=== PATIENT | male | born 1940 | race American Indian/Alaskan Native ===

== ENCOUNTER 2016-08-04 08:48 | Day surgery (SDC) | payer MEDICARE, OTHER ==
[~2016-08-04 08:48] MED LIST: TETRACAINE 0.5% OS SCH
[2016-08-04] MEDS ORDERED: XYLOCAINE MPF 2% INFILTRATI ONE (10:00)
[2016-08-04] MEDS: MYDRIACYL OS SCH ×3 (10:02→10:13)
[2016-08-04] MEDS: VIGAMOX OS SCH ×3 (10:02→10:14)
[2016-08-04] MEDS: AK-Dilate OS SCH ×3 (10:03→10:13)
[2016-08-04] MEDS ORDERED: SUBLIMAZE ONE (10:05)
[2016-08-04] MEDS ORDERED: VERSED ONE (10:06)
--- NOTE | 2016-08-04 10:23 | Anesthesia Consultation ---
Anesthesia Consult and Med Hx Date of service: 08/04/16 - Airway Anesthetic Teeth Evaluation: Good, Chipped (top front) ROM Head & Neck: Adequate Mental/Hyoid Distance: Adequate Mallampati Class: Class II Intubation Access Assessment: Probably Good - Pulmonary Exam CTA: Yes - Cardiac Exam Cardiac Exam: RRR - Pre-Operative Health Status ASA Pre-Surgery Classification: ASA3 Proposed Anesthetic Plan: MAC - Pulmonary Hx Smoking: Yes (Former) Hx Asthma: No - Cardiovascular System Hx Hypertension: Yes Hx Coronary Artery Disease: Yes Hx Heart Attack/AMI: No Hx Angina: No Hx Percutaneous Transluminal Coronary Angioplasty (PTCA): Yes (stent x 2011) Hx Cardia Arrhythmia: Yes (h/o A flutter) Hx Pacemaker: No Hx Internal Defibrillator: No 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
--- NOTE | 2016-08-04 10:23 | Anesthesia Day of Surgery ---
Anesthesia Day of Surgery - Day of Surgery Patient Examined: Yes Patient H&P Reviewed: Yes Patient is NPO: Yes
[2016-08-04] MEDS ORDERED: KENALOG-40 ONE (10:52)
[2016-08-04] MEDS ORDERED: XYLOCAINE 1% 20 mL ONE (10:53)
[2016-08-04] MEDS ORDERED: DECADRON ONE (10:57)
[2016-08-04] MEDS ORDERED: KENALOG-40 IM ONE (11:06)
--- NOTE | 2016-08-04 11:37 | Post Anesthesia Evaluation ---
- Post Anesthesia Evaluation Patient Participated: Yes Airway Patent: Yes Stable Respiratory Function: Yes Nausea/Vomiting: No Temp > 96.8F: Yes Pain Manageable: Yes Adequeate Hydration: Yes Anesthesia Complications: No Block Receding Appropriately: Not Applicable Patient on Ventilator: No
--- NOTE | 2016-08-04 11:45 | Short Stay Summary ---
Short Stay Documentation Date of service: 08/04/16 - History H&P: obtained from office - Allergies and Medications Current Medications: Allergies No Known Allergies Allergy (Verified 08/03/16 18:14) Home Medications Medication Instructions Recorded Confirmed Last Taken Type Aspirin BABY CHEW TAB 81 mg PO DAILY 05/13/15 08/04/16 08/03/16 20:00 History AtorvaSTATin [Lipitor] 80 mg PO DAILY 05/13/15 08/04/16 08/03/16 20:00 History E AC/Cu/Se/Znox/Pyg Afri/Saw P 1 tab PO DAILY 05/13/15 08/04/16 08/03/16 09:00 History [Prostamen Softgel] Bicalutamide [Bicalutamide] 50 mg PO DAILY 08/03/16 08/04/16 08/03/16 20:00 History Leuprolide Acetate [Eligard] 45 mg SQ [id number] 08/03/16 08/03/16 Unknown History Levofloxacin [Levaquin TAB] 500 mg PO QDAY 08/03/16 08/04/16 08/03/16 09:00 History Valsartan [Valsartan] 320 mg PO DAILY 08/03/16 08/04/16 08/03/16 20:00 History Active Medications Moxifloxacin HCl (Vigamox) 1 drops OS Q5MIN [facility] Stop: 08/06/16 07:01 Last Admin: 08/04/16 10:14 Dose: 1 drops Phenylephrine HCl (Ak-Dilate) 1 drops OS Q5MIN [facility] Stop: 08/04/16 23:59 Last Admin: 08/04/16 10:13 Dose: 1 drops Prednisolone Acetate (Pred Forte 1%) 1 drops OS QID [facility] Tetracaine HCl (Tetracaine 0.5%) 1 drops OS ONCE [facility] Stop: 08/04/16 23:59 Last Admin: 08/04/16 10:02 Dose: 1 drops Tropicamide (Mydriacyl) 1 drops OS Q5MIN [facility] Stop: 08/04/16 23:59 Last Admin: 08/04/16 10:13 Dose: 1 drops - Brief post op/procedure progress note Date of procedure: 08/04/16 Pre-op diagnosis: cataract and posterior synechaie Post-op diagnosis: same Procedure: Phacoemulsification with intraocular lens insertion and synechiolysis left eye Anesthesia: MAC Surgeon: JANN JACOBSON Estimated blood loss: none Pathology: none - Disposition Condition at discharge: Good Disposition: DC-01 TO HOME OR SELFCARE - Discharge Diagnoses (1) Cataract Status: Acute Qualifiers: Cataract type: secondary Age-related cataract type: A Infantile/juvenile cataract type: I Traumatic cataract type: T Complicated cataract type: C Secondary cataract type: other secondary cataract Laterality: left Qualified Code(s): H26.492 - Other secondary cataract, left eye (2) Synechia, posterior Status: Resolved Qualifiers: Laterality: left Qualified Code(s): H21.542 - Posterior synechiae (iris), left eye (3) Synechiae of iris Status: Resolved Qualifiers: Laterality: left Qualified Code(s): H21.502 - Unspecified adhesions of iris , left eye Short Stay Discharge Plan Follow up with: VENANCIO MCKINNON MD [Primary Care Provider] - 7 Days
--- NOTE | 2016-08-04 11:48 | Operative Report ---
Operative Report Operative Report: PATIENT'S NAME: DATE OF : DATE OF SURGERY: 08/04/2016 PREOPERATIVE DIAGNOSIS: Cataract and posterior synechiae left eye POSTOPERATIVE DIAGNOSIS: Same OPERATIVE PROCEDURE: Phacoemulsification with intraocular lens implantation, synechiolysis left eye SURGEON: Saige Ruiz M.D. GATHERING WORKER SURGEON: None Lens: ao60 19.0 D ANESTHESIA: Monitored anesthesia care in combination with topical and intracameral anesthesia because of the established specific risk of reflux, arrhythmias, or anxiety attacks associated with ocular manipulation, as well as the difficulty of the billing customer service representative to manage such potentially catastrophic events while simultaneously attempting to complete the surgical procedure and was deemed necessary for the patient's safety to have an Rivet Thrower present during the procedure whenever possible. An Rivet Thrower was utilized to regulate the intravenous sedation of the patient so the patient was cooperative yet not asleep in order for the patient to successfully maintain fixation of the eye on the operating light of the microscope. COMPLICATIONS: [No surgical complications] No blood loss. ALLERGIES: [No known drug allergies] PROGNOSIS: Excellent INDICATIONS FOR SURGERY: The patient is undergoing surgery in the hopes of eliminating or improving these visual difficulties. PROCEDURE: After arriving at the surgery center, the patient was given topical anesthetic and dilating drops, as noted in the record. The patient was then taken into the operating room and given more anesthetic drops. The eyelids , lashes, and lid margins were scrubbed with Betadine solution, and the patient was draped. The Nurse Rivet Thrower administered IV sedation and monitored the patient during the procedure. The eye was then fixated with a 0.12, and a stab incision was made in the peripheral clear cornea into the anterior chamber. This was made on my left side. Viscoelastic was next used to fill the anterior chamber. The eye was once again fixated with the 0.12 forceps and a keratome was used make an incision in clear cornea peripherally on my right hand side temporally. the posterior synechaie were broken. a malugyan ring inserted The capsule forceps were used to open the central anterior capsule and then make a continuous round capsulotomy. Hydrodissection was carried out utilizing a cannula and balanced salt solution to delineate the cortical material from the capsule and the nucleus from the cortical material. The phaco tip was introduced into the eye and used to remove the anterior cortical material in the area of the capsulotomy. Then the phaco tip was buried into the nucleus, and a chopping instrument was introduced into the eye and used to provide countertraction in the nucleus between this instrument and the phaco tip fracturing the nucleus. This procedure was repeated multiple times, providing multiple small segments of the lens, and then the phaco tip was used to remove each of these segments. An I/A tip was then used to remove the remaining cortex. The anterior chamber was refilled with viscoelastic. An one-piece, acrylic intraocular lens was then placed into an inserting cartridge. The tip of the inserting cartridge was introduced into the keratome incision and into the anterior chamber. The implant was gently advanced through the cartridge and into the eye, where it unfolded, and both haptics were placed in the capsular bag, where it centered nicely and appeared to be well fixated. After placement of the intraocular lens, the malugyan ring was removed the I~and ~A handpiece was placed back into the eye and used to remove the viscoelastic, including viscoelastic that was behind the optic of the intraocular lens. The anterior chamber was then filled with balanced salt solution, and hydration of the wound was used to cause swelling of the wound and more appropriate watertight closure. kenolog injected When the wound was found to be firm, the patient was asked to comment on how bright the light was. If there was no light perception at all or if the light was substantially dimmer than during the rest of the surgery, the amount of fluid in the eye was decompressed to lower the intraocular pressure until the patient could see the bright light again. This was done to avoid any damage or decreased blood flow to the optic nerve. MEDICATIONS APPLIED AT END OF SURGERY: One drop of Pred Forte and Vigamox kenolog injected subconj The patient was given a shield to wear at night and was instructed not to rub or push on the eye. DISCHARGE SUMMARY: The patient was released in stable condition. The patient and those with the patient were given a written sheet of postoperative instructions and counseling on any abnormal laboratory studies. The patient is to see us tomorrow for follow-up in the office and is to call immediately for any difficulties. Saige Ruiz M.D. Date
[2016-08-04] MEDS ORDERED: PRED FORTE 1% OS SCH (14:00)
[2016-08-04 17:44] VITALS: BP 130/66
== END 2016-08-04 13:20 | disposition home or self-care (01) ==
LOC: OR 08:48
DX: H26.9 Unspecified cataract (principal); H21.542 Posterior synechiae (iris), left eye; I25.10 Atherosclerotic heart disease of native coronary artery without angina pectoris; I10 Essential (primary) hypertension; Z95.2 Presence of prosthetic heart valve; Z85.46 Personal history of malignant neoplasm of prostate; Z72.89 Other problems related to lifestyle; Z87.891 Personal history of nicotine dependence; Z95.5 Presence of coronary angioplasty implant and graft; Z79.899 Other long term (current) drug therapy
CPT/HCPCS: 66984; J1100; J2250; J3010; J3301; V2632

== ENCOUNTER 2016-08-17 10:27 | Day surgery (SDC) | payer MEDICARE, OTHER ==
--- NOTE | 2016-08-10 11:27 | Admit Criteria Form ---
Admission Criteria Documentation: AMBULATORY SURGERY EXCEPTION CRITERIA Ambulatory Surgery Exception Criteria ( Place 'X' for any and all applicable criteria): Surgery or procedure performed on ambulatory basis may require inpatient stay for[A] ANY ONE of the following(1)(2)(3)(4)(5)(6)(7)(8)(9): [X] I. A preoperative situation, condition, or finding that warrants inpatient stay as indicated by ANY ONE of the following: [] a) Inpatient care needed because of severity of a disease or condition rather than the surgery (eg, severe cardiac or respiratory disease, severe infection) (15) (16 ) (17) (18) [] b) Emergent procedure (eg, angioplasty for acute ischemia)(19) [] c) Complex surgical approach or situation as indicated by ANY ONE of the following(3): [] i) Open approach needed instead of usual endoscopic, transcatheter, or other less invasive procedure [] ii) Difficult approach because of previous operation [] iii) Airway monitoring required after open neck procedures(20)(21) [] iv) Large mass requiring unusually extensive dissection [] v) Additional complicating feature requiring inpatient care (eg, drain management)(22(23): [X] d) Major surgery in a pt with high anesthetic risk as indicated by ANY ONE of the following (2)(3)(5)(7)(8): [X] i) ASA risk class III or higher (severe systemic disease impairing function) [D] [] ii) Advanced age (eg, older than 85 years)(14)(24) [] iii) Symptomatic heart failure(25) [] iv) Symptomatic asthma or COPD(8)(21) [] v) Morbid obesity with hemodynamic or respiratory problems(20)( 21)(26)(27) [] vi) Obstructive sleep apnea(20)(21) [] vii) Former premature infants who are younger than 60 weeks [] viii) High risk for severe postoperative abnormalities (eg, severe postoperative hypocalcemia after parathyroidectomy for severe hyperparathyroidism)(27)( 28) [] ix) Unstable angina(25) [] e) Drug-related risk requiring inpatient stay as indicated by ANY ONE of the following(5)(10)(14)(32)(33) [] i) Procedure requires discontinuing drugs or other therapy (eg , antiarrhythmic medication, antiseizure medication), which necessitates inpatient observation or treatment.(18)(31) [] ii) Major surgery and high risk drug use as indicated by ANY ONE of the following: [] 1) Active abuse of cocaine or similar drug [] 2) Monoamine oxidase inhibitor use [] 3) Other drug identified as posing risk [] f) Inadequate outpatient care situation as indicated by ANY ONE of the following(5)(10)(14)(32)(33) [] i) Patient lives remote from medical facility and procedure has urgent complication potential, and temporary nearby residence cannot be arranged [] ii) Patient will have postprocedure incapacitation and inadequate assistance at home, or alternative level of care cannot be arranged. [] iii) Patient will have long general anesthesia or procedure side effect resolution time, and competent person to stay with patient on first postoperative night at home or alternative level of care cannot be arranged. []iv) Other inadequate outpatient situation that cannot be handled by other means [] II. A perioperative event, condition, or finding that warrants inpatient stay as indicated by ANY ONE of the following (1)(2)(3): [] a) Inadequate physiologic recovery: cardiovascular, respiratory, or hemodynamic status not normal or near preoperative baseline(18) [] b) Hemodynamic instability [] c) Patient not alert with near normal or baseline mental status [] d) Temperature not normal or as expected and not appropriate for outpatient treatment of condition [] e) Ambulatory or appropriate activity level status not yet achieved post procedure [E](34)(35)(36) [] f) Operative site not appropriate (eg, unexpected or excessive drainage or bleeding) [] g) Postoperative effects not resolved or adequately managed (eg, significant pain or vomiting not appropriate for outpatient or next level of care)(10)(12) [] h) Complicating features requiring inpatient care as indicated by ANY ONE of the following(37): [] i) Severe complications of procedure (eg, bowel injury, airway compromise, vascular injury,severe hemorrhage) [] ii) Extensive (eg, dissection far beyond usual scope of procedure ) or prolonged (eg, 120 minutes beyond usual) surgery needed requiring inpatient postoperative care [] iii) Conversion to an open or complex procedure that requires inpatient care (eg, open vs laparoscopic cholecystectomy, abdominal vs vaginal hysterectomy)(38) [] iv) Comorbid condition or test result identified during or post procedure that requires inpatient care (7) [] v) Malignant hyperthermia(30) [] vi) Other complicating feature requiring inpatient care(22)(23) Inpatient stay may be needed until ALL of the following are present (1)(2)(3)(4) (5)(6)(10)(14)(33)(40): []a) Physiologic recovery: cardiovascular, respiratory, and hemodynamic status normal or near preoperative baseline []b) Hemodynamic stability []c) Patient alert, with near normal or baseline mental status []d) Temperature appropriate: patient afebrile or temperature appropriate for outpt treatment of condition []e) Activity level appropriate: ambulatory or appropriate activity level post procedure []f) Operative site appropriate as indicated by ALL of the following: []i) Site dry or with expected drainage []ii) Any blood noted is as expected for procedure. []g) Postoperative effects resolved or managed as indicated by ALL of the following: []i) Pain management appropriate for outpatient (or next level of) care(10) []ii) Minimal nausea and vomiting: if present, successfully treated with oral medication(12) []iii) Headache, dizziness, or drowsiness (if present) are mild. []h) Voiding status acceptable as indicated by ANY ONE of the following: []i) Voiding spontaneously []ii) No voiding but instructions given for follow-up in 6 to 8 hours []iii) Urinary catheter in place, and instructions given for follow-up []i) Complicating features requiring inpatient care manageable at a lower level of care(37) []j) Comorbid conditions manageable at a lower level of care(37) The original [employer] content created by [employer] has been revised. The portions of the content which have been revised are identified through the use of italic text or in bold, and [employer] has neither reviewed nor approved the modified material. All other unmodified content is copyright [employer]. Please see references footnoted in the original [employer] edition 2016
--- NOTE | 2016-08-11 10:57 | Anesthesia Consultation ---
Anesthesia Consult and Med Hx Date of service: 08/11/16 - Airway Anesthetic Teeth Evaluation: Good ROM Head & Neck: Adequate Mental/Hyoid Distance: Adequate Mallampati Class: Class II Intubation Access Assessment: Probably Good - Pulmonary Exam CTA: Yes - Cardiac Exam Cardiac Exam: RRR - Pre-Operative Health Status ASA Pre-Surgery Classification: ASA3 - Pulmonary Hx Smoking: Yes (Former) Hx Sleep Apnea: No (SIGIFREDO PRE SCREEN HIGH RISK) - Cardiovascular System Hx Hypertension: Yes Hx Coronary Artery Disease: Yes Hx Heart Attack/AMI: No Hx Percutaneous Transluminal Coronary Angioplasty (PTCA): Yes (stent x 2011) Hx Cardia Arrhythmia: Yes (h/o A flutter) Hx Pacemaker: No Hx Valvular Heart Disease: Yes (aortic valve repalcement 2012) Hx Heart Murmur: Yes - Central Nervous System Hx Seizures: No CVA: No Hx Psychiatric Problems: No - Gastrointestinal Hx Ulcer: No Hx Gastroesophageal Reflux Disease: No - Endocrine Hx Renal Disease: No Hx Liver Disease: No Hx Non-Insulin Dependent Diabetes: No Hx Hypothyroidism: No - Hematic Hx Anemia: Yes - Other Systems Hx Alcohol Use: Yes (PACK OCCASIONAL) Hx Substance Use: No Hx Cancer: Yes (prostate)
[2016-08-11 11:00] LABS: Basophils % (Auto) 0.2 % (0.0-1.8); Eosinophils % (Auto) 1.4 % (0.0-4.3); Hematocrit 39.1 % (35.5-45.6); Mean Corpuscular HGB Conc 33 % (32-34); Mean Corpuscular Hemoglobin 31 pg (28-32); Mean Corpuscular Volume 94 fl (84-94); Platelet Count 134 K/mm3 (140-440); Red Blood Count 4.15 M/mm3 (3.65-5.03); Red Cell Distribution Width 15.4 % (13.2-15.2); White Blood Count 5.8 K/mm3 (4.5-11.0)
[2016-08-11 11:08] LABS: INR 0.95 (0.87-1.13)
[2016-08-11 11:09] LABS: Partial Thromboplastin Time 26.2 Sec. (24.2-36.6)
[2016-08-11 12:30] LABS: Alanine Aminotransferase 17 units/L (7-56); Albumin 3.7 g/dL (3.9-5); Albumin/Globulin Ratio 1.3 %; Alkaline Phosphatase 98 units/L (35-129); Anion Gap 18 mmol/L; Blood Urea Nitrogen 16 mg/dL (9-20); Calcium 8.2 mg/dL (8.4-10.2); Carbon Dioxide 20 mmol/L (22-30); Chloride 106.2 mmol/L (98-107); Glucose 99 mg/dL (75-100); Potassium 3.8 mmol/L (3.6-5.0); Sodium 140 mmol/L (137-145); Total Protein 6.6 g/dL (6.3-8.2)
[~2016-08-17 10:27] MED LIST changes: +NACL 0.9% 1000 ML 1,000 ML IV SCH; +PEPCID PO NR; -TETRACAINE 0.5% OS SCH
[2016-08-17] MEDS ORDERED: NACL BACTERIOSTATIC INFILTRATI ONE (11:15)
--- NOTE | 2016-08-17 12:21 | Post Operative Note ---
Date of procedure: 08/17/16 Pre-op diagnosis: AUR and stricture cap Post-op diagnosis: same Findings: as above Procedure: cysto dviu turp Anesthesia: GETA Surgeon: GLORY RENEE Estimated blood loss: minimal Pathology: list (chips) Specimen disposition: to lab Condition: stable Disposition: PACU
[2016-08-17] MEDS ORDERED: ANCEF/STERILE WATER 2 GM/20 ML 2 GM/20 ML SYRINGE IV NR (13:00)
[2016-08-17] MEDS ORDERED: OMNIPAQUE 300 MG/50 ML (CATH LAB) IV ONE (13:20)
[2016-08-17] MEDS ORDERED: SORBITOL-MANNITOL IRRIG IR ONE (13:20)
--- NOTE | 2016-08-17 13:44 | Discharge Summary ---
Short Stay Discharge Plan Activity: other (no straining ) Weight Bearing Status: Full Weight Bearing Diet: regular, low fat, low cholesterol Special Instructions: other (nguyen care ) Durable Medical Equipment Needed Upon Discharge: other (nguyen) Follow up with: VENANCIO MCKINNON MD [Primary Care Provider] - 7 Days GLORY RENEE MD [Staff Physician] - 08/31/16
--- NOTE | 2016-08-17 14:53 | Operative Report ---
PREOPERATIVE DIAGNOSES: Urinary retention, history of prostate cancer, which is now metastatic previous seed with recurrent scar tissue and incontinence. POSTOPERATIVE DIAGNOSES: Severe scar tissue, inability to place Parekh with intermittent catheterization by the patient. PROCEDURES: Cystoscopy, direct vision internal urethrotomy, transurethral resection of prostate tissue, which was severely scarred. SURGEON: Lake Garcia MD ANESTHESIA: General. FINDINGS: The patient is a gentleman with recurrent scar tissue post seed implantation. He is totally incontinent, once this opens and then gradually obtain some continence from the scars up. At this point, we could not get a catheter . It has been intermittently retention. He now presents for transurethral excision of prostatic scar tissue. DESCRIPTION OF PROCEDURE: The patient brought to the operating room and placed on the operating table. Following induction of anesthesia, placed in lithotomy position, prepped and draped in usual sterile fashion. The scar tissue was so dense, we initially placed a wire coiled in the bladder with an open-ended catheter. We incised it. It was so hard to even breakthrough. We had to incise it with the cold knife in multiple spots. Once we broke through we were able to resect it with a 24 resectoscope using the visual obturator. The patient tolerated the procedure well with no significant bleeding. A 22 cath was placed with a wire. The bladder was thickened. The prostatic urethra was wide open. I did not see any seeds at this time except on x-ray. The patient tolerated the procedure well and brought to recovery in stable condition. JOB# [id number] MUMTAZ/LAURA
[2016-08-17 16:03] VITALS: BP 149/95
--- NOTE | 2016-08-18 09:58 | Fluoroscopy Report ---
CYSTOGRAM STATIC, ONE VIEW History: Prostate cancer, urinary incontinence. Findings: Fluoroscopy was provided by radiology during cystogram by urology. 4 fluoroscopic images were captured. Skiver Operator film of the abdomen is unremarkable. Multiple radiotherapy beads are noted in the prostate bed. Subsequent images demonstrate administration of water-soluble contrast through a Parekh catheter. There is mild trabeculation of the bladder wall but no obvious mass or filling defect. Please correlate with the procedural report by Dr. Garcia. Impression: Mild trabeculation of the bladder wall. No filling defect or extravasation identified.
== END 2016-08-17 15:49 | disposition home or self-care (01) ==
LOC: OR 10:27
PROVIDERS: ATTEND Urology
DX: L90.5 Scar conditions and fibrosis of skin (principal); N39.498 Other specified urinary incontinence; N32.89 Other specified disorders of bladder; I10 Essential (primary) hypertension; I25.10 Atherosclerotic heart disease of native coronary artery without angina pectoris; D64.9 Anemia, unspecified; Z95.5 Presence of coronary angioplasty implant and graft; Z95.2 Presence of prosthetic heart valve; Z72.89 Other problems related to lifestyle; Z85.46 Personal history of malignant neoplasm of prostate; Z87.891 Personal history of nicotine dependence
CPT/HCPCS: 36415; 51600; 52601; 74430; 80053; 85025; 85610; 85730; 86850; 86900; 86901; 88305; C1758; C1769; J0690; J7030; Q9967

== ENCOUNTER 2016-08-18 06:02 | Day surgery (SDC) | payer MEDICARE, OTHER ==
[~2016-08-18 06:02] MED LIST changes: +DECADRON ONE; +DIPRIVAN 10 MG/ML IV ONE; +LASIX ONE; -NACL 0.9% 1000 ML 1,000 ML IV SCH; -PEPCID PO NR; +SUBLIMAZE ONE; +XYLOCAINE MPF 2% ONE; +ZOFRAN ONE; +ePHEDrine SULFATE ONE
[2016-08-18] MEDS ORDERED: TETRACAINE 0.5% OD PRN ×2 (06:21→14:02)
[2016-08-18] MEDS: AK-Dilate OD SCH ×3 (06:35→06:45)
[2016-08-18] MEDS: MYDRIACYL OD SCH ×3 (06:35→06:45)
[2016-08-18] MEDS: VIGAMOX OD SCH ×3 (06:35→06:45)
--- NOTE | 2016-08-18 06:58 | Anesthesia Consultation ---
Anesthesia Consult and Med Hx Date of service: 08/18/16 - Airway Anesthetic Teeth Evaluation: Good ROM Head & Neck: Adequate Mental/Hyoid Distance: Adequate Mallampati Class: Class II Intubation Access Assessment: Probably Good - Pulmonary Exam CTA: Yes - Cardiac Exam Cardiac Exam: RRR Anesthetic Concerns: 2/6 systolic murmur - Pre-Operative Health Status ASA Pre-Surgery Classification: ASA3 Proposed Anesthetic Plan: MAC - Pulmonary Hx Smoking: Yes (Former) Hx Sleep Apnea: No (SIGIFREDO PRE SCREEN HIGH RISK) - Cardiovascular System Hx Hypertension: Yes Hx Coronary Artery Disease: Yes Hx Heart Attack/AMI: No Hx Percutaneous Transluminal Coronary Angioplasty (PTCA): Yes (stent x 2011) Hx Cardia Arrhythmia: Yes (h/o A flutter) Hx Pacemaker: No Hx Valvular Heart Disease: Yes (aortic valve repalcement 2012) Hx Heart Murmur: Yes - Central Nervous System Hx Seizures: No CVA: No Hx Psychiatric Problems: No - Gastrointestinal Hx Ulcer: No Hx Gastroesophageal Reflux Disease: No - Endocrine Hx Renal Disease: No Hx Liver Disease: No Hx Non-Insulin Dependent Diabetes: No Hx Hypothyroidism: No - Hematic Hx Anemia: Yes - Other Systems Hx Alcohol Use: Yes (PACK OCCASIONAL) Hx Substance Use: No Hx Cancer: Yes (prostate)
--- NOTE | 2016-08-18 06:58 | Anesthesia Day of Surgery ---
Anesthesia Day of Surgery - Day of Surgery Patient Examined: Yes Patient H&P Reviewed: Yes Patient is NPO: Yes Cardiac Clearance: Yes
[2016-08-18] MEDS ORDERED: AK-Dilate OD SCH ×3 (07:00→15:00)
[2016-08-18] MEDS ORDERED: VERSED ONE (07:10)
[2016-08-18] MEDS ORDERED: SUBLIMAZE ONE (07:11)
--- NOTE | 2016-08-18 07:31 | Admit Criteria Form ---
Admission Criteria Documentation: AMBULATORY SURGERY EXCEPTION CRITERIA Ambulatory Surgery Exception Criteria ( Place 'X' for any and all applicable criteria): Surgery or procedure performed on ambulatory basis may require inpatient stay for[A] ANY ONE of the following(1)(2)(3)(4)(5)(6)(7)(8)(9): [X] I. A preoperative situation, condition, or finding that warrants inpatient stay as indicated by ANY ONE of the following: [] a) Inpatient care needed because of severity of a disease or condition rather than the surgery (eg, severe cardiac or respiratory disease, severe infection) (15) (16 ) (17) (18) [] b) Emergent procedure (eg, angioplasty for acute ischemia)(19) [] c) Complex surgical approach or situation as indicated by ANY ONE of the following(3): [] i) Open approach needed instead of usual endoscopic, transcatheter, or other less invasive procedure [] ii) Difficult approach because of previous operation [] iii) Airway monitoring required after open neck procedures(20)(21) [] iv) Large mass requiring unusually extensive dissection [] v) Additional complicating feature requiring inpatient care (eg, drain management)(22(23): [X] d) Major surgery in a pt with high anesthetic risk as indicated by ANY ONE of the following (2)(3)(5)(7)(8): [X] i) ASA risk class III or higher (severe systemic disease impairing function) [D] [] ii) Advanced age (eg, older than 85 years)(14)(24) [] iii) Symptomatic heart failure(25) [] iv) Symptomatic asthma or COPD(8)(21) [] v) Morbid obesity with hemodynamic or respiratory problems(20)( 21)(26)(27) [] vi) Obstructive sleep apnea(20)(21) [] vii) Former premature infants who are younger than 60 weeks [] viii) High risk for severe postoperative abnormalities (eg, severe postoperative hypocalcemia after parathyroidectomy for severe hyperparathyroidism)(27)( 28) [] ix) Unstable angina(25) [] e) Drug-related risk requiring inpatient stay as indicated by ANY ONE of the following(5)(10)(14)(32)(33) [] i) Procedure requires discontinuing drugs or other therapy (eg , antiarrhythmic medication, antiseizure medication), which necessitates inpatient observation or treatment.(18)(31) [] ii) Major surgery and high risk drug use as indicated by ANY ONE of the following: [] 1) Active abuse of cocaine or similar drug [] 2) Monoamine oxidase inhibitor use [] 3) Other drug identified as posing risk [] f) Inadequate outpatient care situation as indicated by ANY ONE of the following(5)(10)(14)(32)(33) [] i) Patient lives remote from medical facility and procedure has urgent complication potential, and temporary nearby residence cannot be arranged [] ii) Patient will have postprocedure incapacitation and inadequate assistance at home, or alternative level of care cannot be arranged. [] iii) Patient will have long general anesthesia or procedure side effect resolution time, and competent person to stay with patient on first postoperative night at home or alternative level of care cannot be arranged. []iv) Other inadequate outpatient situation that cannot be handled by other means [] II. A perioperative event, condition, or finding that warrants inpatient stay as indicated by ANY ONE of the following (1)(2)(3): [] a) Inadequate physiologic recovery: cardiovascular, respiratory, or hemodynamic status not normal or near preoperative baseline(18) [] b) Hemodynamic instability [] c) Patient not alert with near normal or baseline mental status [] d) Temperature not normal or as expected and not appropriate for outpatient treatment of condition [] e) Ambulatory or appropriate activity level status not yet achieved post procedure [E](34)(35)(36) [] f) Operative site not appropriate (eg, unexpected or excessive drainage or bleeding) [] g) Postoperative effects not resolved or adequately managed (eg, significant pain or vomiting not appropriate for outpatient or next level of care)(10)(12) [] h) Complicating features requiring inpatient care as indicated by ANY ONE of the following(37): [] i) Severe complications of procedure (eg, bowel injury, airway compromise, vascular injury,severe hemorrhage) [] ii) Extensive (eg, dissection far beyond usual scope of procedure ) or prolonged (eg, 120 minutes beyond usual) surgery needed requiring inpatient postoperative care [] iii) Conversion to an open or complex procedure that requires inpatient care (eg, open vs laparoscopic cholecystectomy, abdominal vs vaginal hysterectomy)(38) [] iv) Comorbid condition or test result identified during or post procedure that requires inpatient care (7) [] v) Malignant hyperthermia(30) [] vi) Other complicating feature requiring inpatient care(22)(23) Inpatient stay may be needed until ALL of the following are present (1)(2)(3)(4) (5)(6)(10)(14)(33)(40): []a) Physiologic recovery: cardiovascular, respiratory, and hemodynamic status normal or near preoperative baseline []b) Hemodynamic stability []c) Patient alert, with near normal or baseline mental status []d) Temperature appropriate: patient afebrile or temperature appropriate for outpt treatment of condition []e) Activity level appropriate: ambulatory or appropriate activity level post procedure []f) Operative site appropriate as indicated by ALL of the following: []i) Site dry or with expected drainage []ii) Any blood noted is as expected for procedure. []g) Postoperative effects resolved or managed as indicated by ALL of the following: []i) Pain management appropriate for outpatient (or next level of) care(10) []ii) Minimal nausea and vomiting: if present, successfully treated with oral medication(12) []iii) Headache, dizziness, or drowsiness (if present) are mild. []h) Voiding status acceptable as indicated by ANY ONE of the following: []i) Voiding spontaneously []ii) No voiding but instructions given for follow-up in 6 to 8 hours []iii) Urinary catheter in place, and instructions given for follow-up []i) Complicating features requiring inpatient care manageable at a lower level of care(37) []j) Comorbid conditions manageable at a lower level of care(37) The original [employer] content created by [employer] has been revised. The portions of the content which have been revised are identified through the use of italic text or in bold, and [facility] [employer] has neither reviewed nor approved the modified material. All other unmodified content is copyright [employer]. Please see references footnoted in the original [employer] edition 2016 Admission Criteria Met: Yes
--- NOTE | 2016-08-18 08:12 | Operative Report ---
Operative Report Operative Report: PATIENT'S NAME: DATE OF : DATE OF SURGERY: 08/18/2016 PREOPERATIVE DIAGNOSIS: Cataract right eye POSTOPERATIVE DIAGNOSIS: Same OPERATIVE PROCEDURE: Phacoemulsification with intraocular lens implantation, right eye SURGEON: Saige Ruiz M.D. MASCARA MOLDER SURGEON: Nirmala Lens: A O 6019.5 D ANESTHESIA: Monitored anesthesia care in combination with topical and intracameral anesthesia because of the established specific risk of reflux, arrhythmias, or anxiety attacks associated with ocular manipulation, as well as the difficulty of the crepe sole scourer to manage such potentially catastrophic events while simultaneously attempting to complete the surgical procedure and was deemed necessary for the patient's safety to have an Ethylene Oxide Panelboard Operator present during the procedure whenever possible. An Ethylene Oxide Panelboard Operator was utilized to regulate the intravenous sedation of the patient so the patient was cooperative yet not asleep in order for the patient to successfully maintain fixation of the eye on the operating light of the microscope. COMPLICATIONS: No surgical complications No blood loss. ALLERGIES: No known drug allergies PROGNOSIS: Excellent INDICATIONS FOR SURGERY: The patient is undergoing surgery in the hopes of eliminating or improving these visual difficulties. PROCEDURE: After arriving at the surgery center, the patient was given topical anesthetic and dilating drops, as noted in the record. The patient was then taken into the operating room and given more anesthetic drops. The eyelids , lashes, and lid margins were scrubbed with Betadine solution, and the patient was draped. The Nurse Ethylene Oxide Panelboard Operator administered IV sedation and monitored the patient during the procedure. The eye was then fixated with a 0.12, and a stab incision was made in the peripheral clear cornea into the anterior chamber. This was made on my left side. Viscoelastic was next used to fill the anterior chamber. The eye was once again fixated with the 0.12 forceps and a keratome was used make an incision in clear cornea peripherally on my right hand side temporally. The capsule forceps were used to open the central anterior capsule and then make a continuous round capsulotomy. Hydrodissection was carried out utilizing a cannula and balanced salt solution to delineate the cortical material from the capsule and the nucleus from the cortical material. The phaco tip was introduced into the eye and used to remove the anterior cortical material in the area of the capsulotomy. Then the phaco tip was buried into the nucleus, and a chopping instrument was introduced into the eye and used to provide countertraction in the nucleus between this instrument and the phaco tip fracturing the nucleus. This procedure was repeated multiple times, providing multiple small segments of the lens, and then the phaco tip was used to remove each of these segments. An I/A tip was then used to remove the remaining cortex. The anterior chamber was refilled with viscoelastic. An one-piece, acrylic intraocular lens was then placed into an inserting cartridge. The tip of the inserting cartridge was introduced into the keratome incision and into the anterior chamber. The implant was gently advanced through the cartridge and into the eye, where it unfolded, and both haptics were placed in the capsular bag, where it centered nicely and appeared to be well fixated. After placement of the intraocular lens, the I~and~A handpiece was placed back into the eye and used to remove the viscoelastic, including viscoelastic that was behind the optic of the intraocular lens. The anterior chamber was then filled with balanced salt solution, and hydration of the wound was used to cause swelling of the wound and more appropriate watertight closure. When the wound was found to be firm, the patient was asked to comment on how bright the light was. If there was no light perception at all or if the light was substantially dimmer than during the rest of the surgery, the amount of fluid in the eye was decompressed to lower the intraocular pressure until the patient could see the bright light again. This was done to avoid any damage or decreased blood flow to the optic nerve. MEDICATIONS APPLIED AT END OF SURGERY: One drop of Pred Forte and Vigamox The patient was given a shield to wear at night and was instructed not to rub or push on the eye. DISCHARGE SUMMARY: The patient was released in stable condition. The patient and those with the patient were given a written sheet of postoperative instructions and counseling on any abnormal laboratory studies. The patient is to see us tomorrow for follow-up in the office and is to call immediately for any difficulties. Saige Ruiz M.D. Date
--- NOTE | 2016-08-18 08:13 | Short Stay Summary ---
Short Stay Documentation Date of service: 08/18/16 - History H&P: obtained from office - Allergies and Medications Current Medications: Allergies No Known Allergies Allergy (Verified 08/03/16 18:14) Home Medications Medication Instructions Recorded Confirmed Last Taken Type Aspirin BABY CHEW TAB 81 mg PO DAILY 05/13/15 08/18/16 08/17/16 History AtorvaSTATin [Lipitor] 80 mg PO DAILY 05/13/15 08/18/16 08/17/16 History E AC/Cu/Se/Znox/Pyg Afri/Saw P 1 tab PO DAILY 05/13/15 08/18/16 08/17/16 History [Prostamen Softgel] Bicalutamide [Bicalutamide] 50 mg PO DAILY 08/03/16 08/18/16 08/17/16 History Leuprolide Acetate [Eligard] 45 mg SQ [id number] 08/03/16 08/18/16 08/17/16 History Valsartan [Valsartan] 320 mg PO DAILY 08/03/16 08/18/16 08/17/16 History HYDROcodone/APAP 7.5-325 1 tab PO Q6HR 08/18/16 08/18/16 08/18/16 02:00 History Active Medications Moxifloxacin HCl (Vigamox) 1 drops OD Q5MIN BELIA Stop: 08/20/16 23:59 Last Admin: 08/18/16 06:45 Dose: 1 drops Phenylephrine HCl (Ak-Dilate) 1 drops OD Q5MIN BELIA Stop: 08/20/16 23:45 Last Admin: 08/18/16 06:45 Dose: 1 drops Prednisolone Acetate (Pred Forte 1%) 1 drops OD QID BELIA Tetracaine HCl (Tetracaine 0.5%) 1 drops OD Q5M PRN PRN Reason: Analgesia Stop: 08/20/16 23:45 Last Admin: 08/18/16 06:35 Dose: 1 drops Tropicamide (Mydriacyl) 1 drops OD Q5MIN BELIA Stop: 08/20/16 23:59 Last Admin: 08/18/16 06:45 Dose: 1 drops - Brief post op/procedure progress note Date of procedure: 08/18/16 Pre-op diagnosis: right cataract Post-op diagnosis: same Procedure: Phacoemulsification with intraocular lens insertion right eye Anesthesia: MAC Surgeon: JANN JACOBSON Estimated blood loss: none Pathology: none Condition: stable - Disposition Condition at discharge: Good Disposition: DC-01 TO HOME OR SELFCARE - Discharge Diagnoses (1) Cataract Status: Resolved Qualifiers: Cataract type: age-related Age-related cataract type: nuclear Infantile/ juvenile cataract type: I Traumatic cataract type: T Complicated cataract type: C Secondary cataract type: S Laterality: right Qualified Code(s): H25.11 - Age-related nuclear cataract, right eye Short Stay Discharge Plan Follow up with: VENANCIO MCKINNON MD [Primary Care Provider] - 7 Days
--- NOTE | 2016-08-18 08:24 | Post Anesthesia Evaluation ---
- Post Anesthesia Evaluation Patient Participated: Yes Airway Patent: Yes Stable Respiratory Function: Yes Temp > 96.8F: Yes Pain Manageable: Yes Adequeate Hydration: Yes Anesthesia Complications: No Block Receding Appropriately: Not Applicable
[2016-08-18 08:32] VITALS: BP 146/98
[2016-08-18] MEDS ORDERED: PRED FORTE 1% OD SCH (09:00)
== END 2016-08-18 09:40 | disposition home or self-care (01) ==
LOC: OR 06:02
DX: H26.9 Unspecified cataract (principal); I25.10 Atherosclerotic heart disease of native coronary artery without angina pectoris; I10 Essential (primary) hypertension; Z95.2 Presence of prosthetic heart valve; Z79.899 Other long term (current) drug therapy; Z79.82 Long term (current) use of aspirin; Z87.891 Personal history of nicotine dependence; Z95.5 Presence of coronary angioplasty implant and graft; Z85.46 Personal history of malignant neoplasm of prostate; Z72.89 Other problems related to lifestyle
CPT/HCPCS: 66984; J1100; J1940; J2250; J2405; J2704; J3010; V2632

== ENCOUNTER 2017-06-29 10:14 | Outpatient (CLI) | payer MEDICARE, OTHER ==
--- NOTE | 2017-06-29 13:44 | Cat Scan Report ---
CT scan of abdomen and pelvis without IV contrast: Compared to 04/03/13 History: Malignant neoplasm of prostate. Findings: Normal lung bases. No pleural or pericardial effusion. Normal liver. Calcified granulomas spleen. Normal pancreas and gallbladder. Normal adrenals. There is a cyst identified at the lower pole of right kidney without significant interval change. Nonobstructing 2 mm calculus lower pole left kidney. Normal bladder. No free intraperitoneal fluid. Brachytherapy prostatic seeds. Bilateral small inguinal hernia. Patient's colon the stool in colon. No bowel distention. Severe degenerative changes lumbar spine. No metastatic disease seen. Impression: Prostatic brachytherapy seeds without definite evidence of metastatic disease or adenopathy. Right renal cyst with nonobstructing tiny calculus left kidney.
--- NOTE | 2017-06-30 08:14 | Nuclear Medicine Report ---
NUCLEAR MEDICINE WHOLE-BODY BONE SCAN: 06/29/17 10:24:00 CLINICAL: Prostate cancer COMPARISON: 07/03/12 TECHNIQUE: 25 millicuries technetium 99m MDP was injected intravenously and whole body scans were obtained at 3 hours. FINDINGS: Mild focal uptake at the right elbow which is in the vicinity of previously identified highly suspicious uptake. No other suspicious activity. Benign multifocal uptake in the shoulders, knees and feet. IMPRESSION: Mild focal uptake at the site of a previous much larger and much more intense lesion. No other suspicious uptake.
== END 2017-06-29 10:15 | disposition home or self-care (01) ==
LOC: NM 10:14
PROVIDERS: ATTEND Urology
DX: C61 Malignant neoplasm of prostate (principal); N28.1 Cyst of kidney, acquired; N20.0 Calculus of kidney; K40.20 Bilateral inguinal hernia, without obstruction or gangrene, not specified as recurrent; M47.896 Other spondylosis, lumbar region
CPT/HCPCS: 74176; 78306; A9503

== ENCOUNTER 2017-09-28 08:09 | Day surgery (SDC) | payer MEDICARE, OTHER ==
[2017-09-28] MEDS ORDERED: DILAUDID IV PRN (10:19)
[2017-09-28] MEDS ORDERED: ZOFRAN IV PRN (10:19)
--- NOTE | 2017-09-28 10:20 | Anesthesia Day of Surgery ---
Anesthesia Day of Surgery - Day of Surgery Patient Examined: Yes Patient H&P Reviewed: Yes Patient is NPO: Yes
--- NOTE | 2017-09-28 10:22 | Anesthesia Consultation ---
Anesthesia Consult and Med Hx Date of service: 09/28/17 - Airway Anesthetic Teeth Evaluation: Good ROM Head & Neck: Adequate Mental/Hyoid Distance: Adequate Mallampati Class: Class II Intubation Access Assessment: Probably Good - Pulmonary Exam CTA: Yes - Cardiac Exam Cardiac Exam: RRR - Pre-Operative Health Status ASA Pre-Surgery Classification: ASA3 Proposed Anesthetic Plan: General (Aortic Valve X 2, Aortic Anuerysm, Prostate CA, Denies Gerd, LMA OK) - Pulmonary Hx Smoking: No Hx Sleep Apnea: No (SIGIFREDO PRE SCREEN HIGH RISK) - Cardiovascular System Hx Hypertension: Yes (X 10 YRS) Hx Coronary Artery Disease: Yes Hx Heart Attack/AMI: No Hx Percutaneous Transluminal Coronary Angioplasty (PTCA): Yes (stent x 2011) Hx Cardia Arrhythmia: Yes (h/o A flutter) Hx Pacemaker: No Hx Valvular Heart Disease: Yes (MITRAL VALVE REPAIR) Hx Heart Murmur: Yes Hx Peripheral Vascular Disease: Yes (? LEFT LEG) - Central Nervous System Hx Seizures: No CVA: No Hx Psychiatric Problems: No - Gastrointestinal Hx Ulcer: No Hx Gastroesophageal Reflux Disease: No - Endocrine Hx Renal Disease: No Hx Liver Disease: No Hx Non-Insulin Dependent Diabetes: No Hx Hypothyroidism: No - Hematic Hx Anemia: Yes - Other Systems Hx Alcohol Use: Yes (PACK OCCASIONAL) Hx Substance Use: No Hx Cancer: Yes (prostate)
[2017-09-28 10:35] LABS: INR 1.06 (0.87-1.13)
[2017-09-28 10:36] LABS: Partial Thromboplastin Time 28.5 Sec. (24.2-36.6)
[2017-09-28] MEDS ORDERED: VERSED IV NR (11:00)
[2017-09-28] MEDS ORDERED: ANCEF/STERILE WATER 2 GM/20 ML IV NR (11:00)
[2017-09-28] MEDS ORDERED: LACTATED RINGERS 1,000 ML IV SCH (11:00)
[2017-09-28] MEDS ORDERED: WATER FOR IRRIG STERILE IR ONE ×2 (11:26)
[2017-09-28] MEDS ORDERED: NACL 0.9% IR ONE (11:27)
[2017-09-28] MEDS ORDERED: SORBITOL-MANNITOL IRRIG IR ONE ×2 (11:27)
[2017-09-28] MEDS ORDERED: GARAMYCIN 120 MG in NACL 0.9% 100 ML IV NR (11:30)
[2017-09-28] MEDS ORDERED: DIPRIVAN 10 MG/ML IV ONE (11:56)
[2017-09-28] MEDS ORDERED: ZOFRAN ONE (12:06)
[2017-09-28] MEDS ORDERED: SUBLIMAZE ONE (12:19)
--- NOTE | 2017-09-28 12:39 | Post Operative Note ---
Date of procedure: 09/28/17 Pre-op diagnosis: PARADA Post-op diagnosis: same Findings: same Procedure: cysto turbn Anesthesia: GETA Surgeon: GLORY RENEE Estimated blood loss: minimal Pathology: list (BN //prostate) Specimen disposition: to lab Condition: stable Disposition: PACU
--- NOTE | 2017-09-28 12:40 | Discharge Summary ---
Short Stay Discharge Plan Activity: other (no straining ) Weight Bearing Status: Full Weight Bearing Diet: low fat, low cholesterol, low salt Special Instructions: other (teach nguyen care ) Durable Medical Equipment Needed Upon Discharge: other (nguyen) Follow up with: VENANCIO MCKINNON MD [Primary Care Provider] - 7 Days GLORY RENEE MD [Staff Physician] - 7 Days
--- NOTE | 2017-09-28 13:07 | Post Anesthesia Evaluation ---
- Post Anesthesia Evaluation Patient Participated: Yes Airway Patent: Yes Stable Respiratory Function: Yes Nausea/Vomiting: No Temp > 96.8F: Yes Pain Manageable: Yes Adequeate Hydration: Yes Anesthesia Complications: No
[2017-09-28 16:06] VITALS: BP 146/99
--- NOTE | 2017-09-28 21:03 | Operative Report ---
PREOPERATIVE DIAGNOSIS: Bladder outlet obstruction, history of prostate cancer, radiation. POSTOPERATIVE DIAGNOSIS: Bladder outlet obstruction, history of prostate cancer, radiation with narrowed bladder neck. PROCEDURES: Cystoscopy, incision and resection of bladder neck. SURGEON: Lake Garcia MD INDICATIONS: There is a gentleman with progressive difficulty voiding. He has been using a catheter. He now presents for cystoscopy. DESCRIPTION OF PROCEDURE: The patient was brought to the operating room and placed on the operating table. Following induction of anesthesia, placed in lithotomy position, prepped and draped in the usual sterile fashion. Cystourethroscopy showed some tissue and obstruction with a narrowed entrance to the bladder, mostly if not all from the left side. This was resected. Careful attention was made not to damage the trigone. The rest of the bladder looked minimally trabeculated. This was opened wide. The area was cauterized as needed. The patient tolerated the procedure well. We did not want to use that much cautery. We did not want to cause more stricture. The patient tolerated the procedure well. The chips were sent to pathology. A 24 3-way was irrigated clear, was placed in the bladder. He had the Peters in recovery and he can go home later today as long as it stays clear and the Peters is stopped. He was brought to recovery in stable condition. JOB# [id number] MUMTAZ/LAURA
--- NOTE | 2017-09-29 07:38 | Fluoroscopy Report ---
FLUOROSCOPY CYSTOGRAM STATIC-OR: HISTORY: Transurethral resection of prostate. FINDINGS: Fluoroscopy was provided by radiology during cystogram by the urologist. 1 fluoroscopic image was captured. The presented image is labeled post cystogram. There is only trace contrast agent in the base of the bladder outlining a Parekh catheter. No gross extravasation. Please correlate with the procedural report as needed. IMPRESSION: Empty bladder containing a Parekh.
== END 2017-09-28 15:33 | disposition home or self-care (01) ==
LOC: OR 08:09
PROVIDERS: ATTEND Urology
DX: L57.0 Actinic keratosis (principal); N32.0 Bladder-neck obstruction; I25.10 Atherosclerotic heart disease of native coronary artery without angina pectoris; I10 Essential (primary) hypertension; I73.9 Peripheral vascular disease, unspecified; E78.00 Pure hypercholesterolemia, unspecified; Z79.01 Long term (current) use of anticoagulants; Z79.82 Long term (current) use of aspirin; Z79.899 Other long term (current) drug therapy; Z72.89 Other problems related to lifestyle; Z98.49 Cataract extraction status, unspecified eye; Z95.2 Presence of prosthetic heart valve; Z95.5 Presence of coronary angioplasty implant and graft; Z85.46 Personal history of malignant neoplasm of prostate
CPT/HCPCS: 36415; 52500; 74430; 85002; 85610; 85730; 86850; 86900; 86901; 88305; A4217; J0690; J1580; J2250; J2405; J2704; J3010; J7120; Q9967; 88307

== ENCOUNTER 2017-11-29 10:44 | Day surgery (SDC) | payer MEDICARE, OTHER ==
[2017-11-24 13:18] LABS: Hematocrit 36.9 % (35.5-45.6); Hemoglobin 12.9 gm/dl (11.8-15.2); Mean Corpuscular HGB Conc 35 % (32-34); Mean Corpuscular Hemoglobin 32 pg (28-32); Mean Corpuscular Volume 93 fl (84-94); Red Blood Count 3.98 M/mm3 (3.65-5.03); Red Cell Distribution Width 14.7 % (13.2-15.2)
[2017-11-24 13:32] LABS: INR 1.17 (0.87-1.13)
[2017-11-24 13:33] LABS: Partial Thromboplastin Time 29.2 Sec. (24.2-36.6)
[2017-11-24 13:34] LABS: Alanine Aminotransferase 14 units/L (7-56); Albumin 3.4 g/dL (3.9-5); BUN/Creatinine Ratio 10; Blood Urea Nitrogen 10 mg/dL (9-20); Calcium 8.3 mg/dL (8.4-10.2); Hemolysis Index 16
--- NOTE | 2017-11-24 13:58 | Anesthesia Consultation ---
Anesthesia Consult and Med Hx Date of service: 11/24/17 - Airway Anesthetic Teeth Evaluation: Poor, Chipped ROM Head & Neck: Adequate Mental/Hyoid Distance: Adequate Mallampati Class: Class III Intubation Access Assessment: Possibly Difficult - Pulmonary Exam CTA: Yes - Cardiac Exam Cardiac Exam: RRR - Pre-Operative Health Status ASA Pre-Surgery Classification: ASA3 Proposed Anesthetic Plan: General - Pulmonary Hx Smoking: No Hx Asthma: No Hx Respiratory Symptoms: No Hx Sleep Apnea: No (SIGIFREDO PRE SCREEN HIGH RISK) - Cardiovascular System Hx Hypertension: Yes Hx Coronary Artery Disease: Yes Hx Heart Attack/AMI: No Hx Percutaneous Transluminal Coronary Angioplasty (PTCA): Yes (stent x 2013) Hx Cardia Arrhythmia: Yes (A-flutter on eliquis and dronedarone) Hx Pacemaker: No Hx Valvular Heart Disease: Yes (s/p AVR and MVR) Hx Peripheral Vascular Disease: Yes - Central Nervous System Hx Seizures: No CVA: No Hx Back Pain: (NECK PAIN) Hx Psychiatric Problems: No - Gastrointestinal Hx Gastroesophageal Reflux Disease: No - Endocrine Hx Renal Disease: No Hx Liver Disease: No Hx Insulin Dependent Diabetes: No Hx Thyroid Disease: No - Other Systems Hx Substance Use: No Hx Cancer: Yes (prostate) - Additional Comments Anesthesia Medical History Comments: Hx a-flutter on eliquis and dronedarone. Cardiology clearance on chart notes TTE 07/2017 with EF 55-60%, mild MR and MS, no /AI. >4mets exercise tolerance. Per cutting and printing machine operator, OK to hold Eliquis x48hrs prior to procedure and will need SBE prophylaxis.
[2017-11-24 14:09] LABS: Basophils % (Manual) 0 % (0.0-1.8); Total Cells Counted 100
[2017-11-24 14:13] LABS: Acanthocytes Rare; Anisocytosis Few; Ovalocytes Few; Platelet Estimate Consistent w Auto; Poikilocytosis Few; Tear Drop Cells Rare
[2017-11-24 14:14] LABS: Platelet Count 124 K/mm3 (140-440)
[~2017-11-29 10:44] MED LIST changes: +ANCEF/STERILE WATER 2 GM/20 ML 2 GM/20 ML SYRINGE IV NR; -DECADRON ONE; -DIPRIVAN 10 MG/ML IV ONE; +LACTATED RINGERS 1,000 ML IV SCH; -LASIX ONE; +SORBITOL-MANNITOL IRRIG IR ONE; -SUBLIMAZE ONE; +VERSED IV NR; -XYLOCAINE MPF 2% ONE; -ZOFRAN ONE; -ePHEDrine SULFATE ONE
[2017-11-29] MEDS ORDERED: DIPRIVAN 10 MG/ML IV ONE (11:54)
[2017-11-29] MEDS ORDERED: XYLOCAINE MPF 2% ONE (11:54)
[2017-11-29] MEDS ORDERED: SUBLIMAZE ONE (11:54)
[2017-11-29 12:29] LABS: INR 1.06 (0.87-1.13); Partial Thromboplastin Time 22.4 Sec. (24.2-36.6)
[2017-11-29] MEDS ORDERED: ZOFRAN ONE (13:25)
[2017-11-29] MEDS ORDERED: SUBLIMAZE IV PRN (13:25)
--- NOTE | 2017-11-29 13:25 | Anesthesia Day of Surgery ---
Anesthesia Day of Surgery - Day of Surgery Patient Examined: Yes Patient H&P Reviewed: Yes Patient is NPO: Yes
--- NOTE | 2017-11-29 14:02 | Post Operative Note ---
Date of procedure: 11/29/17 Pre-op diagnosis: urinary retention Post-op diagnosis: same Findings: necrotic tissue Procedure: cysto turp Anesthesia: GETA Surgeon: GLORY RENEE Estimated blood loss: minimal Pathology: list (prostate) Specimen disposition: to lab Condition: stable Disposition: PACU
--- NOTE | 2017-11-29 14:04 | Discharge Summary ---
Short Stay Discharge Plan Activity: other (no straining ) Weight Bearing Status: Full Weight Bearing Diet: regular Special Instructions: other (inc fluids ) Durable Medical Equipment Needed Upon Discharge: other (nguyen care ) Follow up with: VENANCIO MCKINNON MD [Primary Care Provider] - 7 Days GLORY RENEE MD [Staff Physician] - 7 Days
--- NOTE | 2017-11-29 16:54 | Operative Report ---
PREOPERATIVE DIAGNOSES: Prostate cancer, previous seed radiation strictures and recurrent cancer. POSTOPERATIVE DIAGNOSES: Prostate cancer, previous seed radiation strictures and recurrent cancer. PROCEDURE: Channel TURP. SURGEON: Lake Garcia MD ANESTHESIA: General. FINDINGS: This gentleman with recurrent obstruction. He is on intermittent catheterization and he is having trouble with little tightened catheter. He could not void at all. He understands he may have incontinence after this procedure as he has with all the procedures before. DESCRIPTION OF PROCEDURE: The patient was brought to the operating room and placed on the operating table. Following induction of anesthesia, placed in lithotomy position, prepped and draped in usual sterile fashion. Cystourethroscopy showed the channel closed off by necrotic tissue. We did see one seed eroding in. At this point, the resection was carried out circumferentially. Mostly tissue came in from above between 11 and 2 o'clock position. At this point, all the tissue was resected that was falling in. We made a channel. We did not see any more seeds and all the chips were evacuated. The patient tolerated the procedure well. No significant complication. There was minimal blood loss. All the chips were evacuated out. A 24 three-way was placed. Irrigation was clear. Will be watching 23 hours, brought to recovery in stable condition. JOB# [id number] MUMTAZ/LAURA
[2017-11-29 18:16] VITALS: BP 138/75
--- NOTE | 2017-11-30 07:57 | XRay Report ---
AP ABDOMEN: HISTORY: Urinary retention. 2 AP fluoroscopic images of the abdomen are presented. The construction engineer image demonstrates an unremarkable bowel gas pattern. Radiotherapy beads are noted in the prostate bed. The second image demonstrates a Parekh catheter and contrast within the bladder. The bladder is grossly normal. No evidence for extravasation, abnormal distention or filling defect. IMPRESSION: Unremarkable abdomen.
== END 2017-11-29 17:15 | disposition home or self-care (01) ==
LOC: OR 10:44
PROVIDERS: ATTEND Urology
DX: N40.1 Benign prostatic hyperplasia with lower urinary tract symptoms (principal); R33.8 Other retention of urine; N41.0 Acute prostatitis; I10 Essential (primary) hypertension; C61 Malignant neoplasm of prostate; E78.00 Pure hypercholesterolemia, unspecified; I73.9 Peripheral vascular disease, unspecified; I25.10 Atherosclerotic heart disease of native coronary artery without angina pectoris; I48.92 Unspecified atrial flutter; Z79.82 Long term (current) use of aspirin; Z79.01 Long term (current) use of anticoagulants; Z79.899 Other long term (current) drug therapy; Z98.49 Cataract extraction status, unspecified eye; Z95.5 Presence of coronary angioplasty implant and graft; Z98.890 Other specified postprocedural states
CPT/HCPCS: 36415; 52601; 74018; 80053; 85007; 85025; 85610; 85730; 86850; 86900; 86901; 88305; C1769; J0690; J2405; J2704; J3010; J7120; Q9967

== ENCOUNTER 2018-04-16 09:00 | Day surgery (SDC) | payer MEDICARE, OTHER ==
--- NOTE | 2018-04-10 10:49 | Anesthesia Consultation ---
Anesthesia Consult and Med Hx Date of service: 04/16/18 - Airway Anesthetic Teeth Evaluation: Good ROM Head & Neck: Adequate Mental/Hyoid Distance: Adequate Mallampati Class: Class I Intubation Access Assessment: Good - Pre-Operative Health Status ASA Pre-Surgery Classification: ASA3 Proposed Anesthetic Plan: General - Pulmonary Hx Smoking: No Hx Asthma: No Hx Respiratory Symptoms: No Hx Sleep Apnea: No (SIGIFREDO PRE SCREEN HIGH RISK) - Cardiovascular System Hx Hypertension: Yes (X 10 YRS) Hx Coronary Artery Disease: Yes Hx Heart Attack/AMI: No Hx Percutaneous Transluminal Coronary Angioplasty (PTCA): Yes (stent x 2013) Hx Cardia Arrhythmia: Yes (A-flutter on eliquis and dronedarone) Hx Pacemaker: No Hx Valvular Heart Disease: Yes (s/p AVR and MVR) Hx Heart Murmur: Yes Hx Peripheral Vascular Disease: Yes (? STENT LEFT LEG) - Central Nervous System Hx Seizures: No CVA: No Hx Back Pain: (NECK PAIN) Hx Psychiatric Problems: No - Gastrointestinal Hx Ulcer: No Hx Gastroesophageal Reflux Disease: No - Endocrine Hx Renal Disease: No Hx Liver Disease: No Hx Insulin Dependent Diabetes: No Hx Non-Insulin Dependent Diabetes: No Hx Thyroid Disease: No Hx Hypothyroidism: No - Hematic Hx Anemia: Yes - Other Systems Hx Substance Use: No Hx Cancer: Yes (prostate)
[2018-04-10 10:58] LABS: Basophils % (Auto) 0.5 % (0.0-1.8); Eosinophils % (Auto) 0.9 % (0.0-4.3); Hematocrit 34.1 % (35.5-45.6); Hemoglobin 11.1 gm/dl (11.8-15.2); Lymphocytes # (Auto) 0.7 K/mm3 (1.2-5.4); Lymphocytes % (Auto) 12.9 % (13.4-35.0); Mean Corpuscular HGB Conc 33 % (32-34); Mean Corpuscular Volume 94 fl (84-94); Monocytes # (Auto) 0.4 K/mm3 (0.0-0.8); Monocytes % (Auto) 7.5 % (0.0-7.3); Platelet Count 198 K/mm3 (140-440); Red Blood Count 3.63 M/mm3 (3.65-5.03); Red Cell Distribution Width 14.6 % (13.2-15.2)
[2018-04-10 11:06] LABS: INR 1.22 (0.87-1.13)
[2018-04-10 11:19] LABS: Albumin 3.2 g/dL (3.9-5); BUN/Creatinine Ratio 15; Blood Urea Nitrogen 12 mg/dL (9-20); Calcium 8.7 mg/dL (8.4-10.2); Hemolysis Index 144
[2018-04-10 11:48] LABS: Alanine Aminotransferase 12 units/L (7-56)
[~2018-04-16 09:00] MED LIST changes: -ANCEF/STERILE WATER 2 GM/20 ML 2 GM/20 ML SYRINGE IV NR; -SORBITOL-MANNITOL IRRIG IR ONE; -VERSED IV NR
[2018-04-16 10:06] LABS: INR 1.14 (0.87-1.13); Partial Thromboplastin Time 21.7 Sec. (24.2-36.6)
[2018-04-16] MEDS ORDERED: DIPRIVAN 10 MG/ML IV ONE ×2 (10:17→11:54)
[2018-04-16] MEDS ORDERED: SUBLIMAZE ONE ×2 (10:17→11:52)
[2018-04-16] MEDS ORDERED: XYLOCAINE MPF 2% ONE (10:19)
--- NOTE | 2018-04-16 10:57 | Post Operative Note ---
Date of procedure: 04/16/18 Pre-op diagnosis: urinary retention Post-op diagnosis: same Findings: scarring post seeds Procedure: cysto turp bn Anesthesia: GETA Surgeon: GLORY RENEE Estimated blood loss: minimal Pathology: list Specimen disposition: to lab (chips) Condition: stable Disposition: PACU
--- NOTE | 2018-04-16 10:59 | Discharge Summary ---
Short Stay Discharge Plan Activity: other (no straining ) Weight Bearing Status: Full Weight Bearing Diet: low fat, low cholesterol Special Instructions: other (inc fluids ) Durable Medical Equipment Needed Upon Discharge: other (nguyen care ) Follow up with: VENANCIO MCKINNON MD [Primary Care Provider] - 7 Days GLORY RENEE MD [Staff Physician] - 14 Days
[2018-04-16] MEDS ORDERED: ANCEF/STERILE WATER 2 GM/20 ML IV NR (11:00)
[2018-04-16] MEDS ORDERED: ANCEF/STERILE WATER 2 GM/20 ML 2 GM/20 ML SYRINGE IV ONE (11:12)
[2018-04-16] MEDS ORDERED: DECADRON ONE (12:09)
[2018-04-16] MEDS ORDERED: ZOFRAN ONE (12:09)
[2018-04-16] MEDS ORDERED: NACL 0.9% IR ONE (12:15)
[2018-04-16] MEDS ORDERED: ZOFRAN IV PRN (12:50)
[2018-04-16] MEDS ORDERED: DILAUDID IV PRN (12:50)
--- NOTE | 2018-04-16 13:07 | Operative Report ---
PREOPERATIVE DIAGNOSES: Metastatic prostate cancer, bladder mass, recurrent urinary retention. POSTOPERATIVE DIAGNOSES: Metastatic prostate cancer, bladder mass, recurrent urinary retention with urethral mass looks like a fleshy mass within the urethra. It is distal to the membranous urethra, extends to the mid penile urethra. PROCEDURE: Cystogram, insertion of a wire, resection of part of this penile mass and part of the bladder neck with this huge mass extending underneath the trigone and insertion of Morongo catheter. SURGEON: Lake Garcia M.D. ANESTHESIA: General. FINDINGS: This is a gentleman with a large mass, post-seed recurrent prostate cancer, metastatic disease who presents with recurrent retention. We tried our best to resect the bladder neck and do channel TURP to give him a quality of life where he could void without severe incontinence. This mass continues to grow and the Morongo catheter had to be inserted in the office by my partner about a month ago. He has been having pain with the catheter. Now presents for cystoscopy. DESCRIPTION OF PROCEDURE: The patient was brought to the operating room and placed on the operating table. Following induction of anesthesia, placed in lithotomy position, prepped and draped in usual sterile fashion. There was a fleshy mass in the mid urethra, extended all the way to the mid penile urethra. This was biopsied. It was hard to get any catheter and urethrogram prior to doing any resection, showed very narrowed urethra within the huge prostatic mass extending well into the bladder. A wire coiled in the bladder and then we resected part of the mass and part of the bladder neck. This mass was too big to safely resect and eventually, we placed a 22-Morongo. We did not discuss with him the possibility of suprapubic tube, but I think a suprapubic cystostomy is his best treatment at this point. All the options were discussed with him. The patient tolerated the procedure well and brought to recovery room in stable condition. Minimal blood loss. We did use the bipolar and we had minimal bleeding throughout the procedure. Chips were evacuated out with Que evacuator. My suggestion will be followup of suprapubic cystostomy, opened suprapubic tube because [place] is likely to cause more damage with this big pelvic mass. JOB# [id number] MUMTAZ/LAURA
--- NOTE | 2018-04-16 13:25 | Fluoroscopy Report ---
FLUOROSCOPY CYSTOGRAM STATIC History: Prostate cancer. Findings: 5 fluoroscopic images were saved by the urologist during cystogram. The images demonstrate multiple radiotherapy beads in the prostate bed. There is a prominent indention along the base of the bladder from an enlarged prostate. The bladder is otherwise unremarkable. No evidence for extravasation or obvious mass. Please correlate with the procedural report as needed. Impression: Prominent prostate gland.
--- NOTE | 2018-04-16 14:09 | Cat Scan Report ---
CT ABDOMEN PELVIS WITHOUT CONTRAST: HISTORY: Pelvic mass. COMPARISON: 06/29/17. TECHNIQUE: Helical CT in 1.25mm intervals without IV contrast. Sagittal and coronal reconstructions. FINDINGS: Lung bases: Mild cardiomegaly. The visualized lung bases are unremarkable. Liver: Normal. Biliary system: Normal. Pancreas: Normal. Spleen: Normal. Kidneys/ureters/bladder: There is moderate right hydronephrosis. No left hydronephrosis. 3 cm right renal cyst is noted near mid pole. A punctate calyceal stone is noted in the mid left kidney. There is marked enlargement of the prostate gland measuring up to 8 cm in diameter. There appears to be invasion of the anterior rectal wall and right side of the bladder. The bladder is only partially distended and demonstrates diffuse wall thickening consistent with cystitis or trabeculation. A Parekh catheter is in place. Adrenal glands: Normal. Aorta: Mild diffuse calcifications. No aneurysm. Intestines: Within normal limits. Appendix: Normal. Ascites: None. Adenopathy: None. Musculoskeletal: Osteopenia with degenerative changes in the spine. No suspicious bony lesions or fracture is identified. IMPRESSION: Marked enlargement of the prostate gland. Possible invasion of the anterior rectal wall and right side of the bladder. Diffuse bladder wall thickening consistent with cystitis or trabeculation. Moderate right hydronephrosis which is probably secondary to obstruction from tumor. Mild cardiomegaly. Osteopenia with degenerative changes in the spine.
[2018-04-16] MEDS ORDERED: NACL 0.9% 1,000 ML IR ONE (14:34)
[2018-04-16 15:33] VITALS: BP 137/80
== END 2018-04-16 15:30 | disposition home or self-care (01) ==
LOC: OR 09:00
PROVIDERS: ATTEND Urology
DX: C79.82 Secondary malignant neoplasm of genital organs (principal); R33.8 Other retention of urine; N32.89 Other specified disorders of bladder; I51.7 Cardiomegaly; N13.30 Unspecified hydronephrosis; N28.1 Cyst of kidney, acquired; I70.0 Atherosclerosis of aorta; M85.88 Other specified disorders of bone density and structure, other site; I48.92 Unspecified atrial flutter; I25.10 Atherosclerotic heart disease of native coronary artery without angina pectoris; E78.00 Pure hypercholesterolemia, unspecified; I10 Essential (primary) hypertension; G47.30 Sleep apnea, unspecified; I73.9 Peripheral vascular disease, unspecified; M47.899 Other spondylosis, site unspecified; Z85.46 Personal history of malignant neoplasm of prostate; Z87.440 Personal history of urinary (tract) infections; Z79.899 Other long term (current) drug therapy; Z79.82 Long term (current) use of aspirin; Z98.49 Cataract extraction status, unspecified eye; Z98.890 Other specified postprocedural states; Z86.2 Personal history of diseases of the blood and blood-forming organs and certain disorders involving the immune mechanism
CPT/HCPCS: 36415; 54100; 74176; 74430; 80053; 85025; 85610; 85730; 86850; 86900; 86901; 88305; 88341; 88342; A4217; J0690; J1100; J2405; J2704; J3010; J7120; Q9967; 88307

== ENCOUNTER 2018-04-20 06:13 | Inpatient (IN) | payer MEDICARE, OTHER ==
[~2018-04-20 06:13] MED LIST changes: +ANCEF/STERILE WATER 2 GM/20 ML 2 GM/20 ML SYRINGE IV NR; -LACTATED RINGERS 1,000 ML IV SCH; +NACL 0.9% 1000 ML 1,000 ML IV SCH
[2018-04-20] MEDS: NACL 0.9% 500 ML 500 ML IV SCH (07:06)
[2018-04-20 07:09] LABS: Hematocrit 30.2 % (35.5-45.6); Hemoglobin 10.2 gm/dl (11.8-15.2); Mean Corpuscular HGB Conc 34 % (32-34); Mean Corpuscular Volume 89 fl (84-94); Platelet Count 185 K/mm3 (140-440); Red Blood Count 3.39 M/mm3 (3.65-5.03); Red Cell Distribution Width 14.5 % (13.2-15.2)
[2018-04-20 07:29] LABS: INR 1.41 (0.87-1.13)
[2018-04-20 07:30] LABS: Partial Thromboplastin Time 32.9 Sec. (24.2-36.6)
[2018-04-20 07:42] LABS: BUN/Creatinine Ratio 14; Blood Urea Nitrogen 10 mg/dL (9-20); Calcium 8.4 mg/dL (8.4-10.2); Hemolysis Index 15
[2018-04-20] MEDS ORDERED: NACL 0.9% 500 ML IR ONE (08:13)
[2018-04-20] MEDS ORDERED: LEVAQUIN 500MG/100ML 500 MG/100 ML BAG IV ONE (08:13)
[2018-04-20] MEDS ORDERED: XYLOCAINE 2% INFILTRATI ONE (08:13)
[2018-04-20] MEDS ORDERED: NACL 0.9% 500 ML 0 ML ONE (08:14)
[2018-04-20] MEDS: VERSED ONE ×2 (09:08→09:34)
[2018-04-20] MEDS: SUBLIMAZE ONE ×3 (09:08→09:54)
[2018-04-20] MEDS ORDERED: VERSED ONE (09:39)
[2018-04-20] MEDS ORDERED: SUBLIMAZE ONE (09:39)
--- NOTE | 2018-04-20 10:05 | History and Physical Report ---
History of Present Illness Chief complaint: I have blockage History of present illness: 78 YO Male with CAD S/P Stent Placement, Atrial Flutter on Therapeutic Anticoagulation (Eliquis), HTN, PVD, AAA, Prostate Cancer S/P Seed implant, Urinary Obstruction admitted directly at the request of Dr. Foley. Pt seen and evaluated upon arrival to his room. Pt acknowledges polyuria, sysuria. Pt denies fever, chills, CP, Palpitations, NVD, Trauma, BRBPR, unintentional weight loss, or night sweats. No reported nursing events. Past History Past Medical History: atrial fib, CAD, hypertension, PVD Past Surgical History: valve replacement, cataract removal, Other (shoulder surgery) Social history: . denies: smoking, alcohol abuse, prescription drug abuse Family history: hypertension Medications and Allergies Allergies Allergy/AdvReac Type Severity Reaction Status Date / Time No Known Allergies Allergy Verified 08/03/16 18:14 Home Medications Medication Instructions Recorded Confirmed Last Taken Type AtorvaSTATin [Lipitor] 40 mg PO DAILY 05/13/15 04/20/18 04/18/18 History Leuprolide Acetate [Eligard] 45 mg SQ [id number] 08/03/16 04/20/18 03/05/18 History Apixaban [Eliquis] 5 mg PO BID 09/04/17 04/20/18 04/18/18 History Metoprolol [Lopressor] 25 mg PO DAILY 09/04/17 04/20/18 04/18/18 History Dronedarone HCl [Multaq] 400 mg PO BID 09/20/17 04/20/18 04/18/18 History Apalutamide [Erleada] 4 tab PO QDAY 04/20/18 04/20/18 04/18/18 History Aspirin [Aspirin EC] 81 mg PO QDAY 04/20/18 04/20/18 04/18/18 History Losartan Potassium 100 mg PO QDAY 04/20/18 04/20/18 04/18/18 History Active Meds: Active Medications Cefazolin Sodium (Ancef/Sterile Water 2 Gm/20 Ml) 2 gm in 20 mls @ 80 mls/hr IV PREOP NR; Protocol Stop: 04/20/18 23:59 Sodium Chloride (Nacl 0.9% 500 Ml) 500 mls @ 50 mls/hr IV DIRECT BELIA Last Admin: 04/20/18 07:06 Dose: 50 mls/hr Documented by: Review of Systems Constitutional: no weight loss, no weight gain, no fever, no chills Ears, nose, mouth and throat: no ear pain, no ear discharge, no tinnitis, no decreased hearing, no nose pain, no nasal congestion Cardiovascular: no chest pain, no orthopnea, no palpitations, no rapid/irregular heart beat, no edema Respiratory: no cough, no excessive sputum Gastrointestinal: no abdominal pain, no nausea, no vomiting, no diarrhea, no constipation, no change in bowel habits Genitourinary Male: dysuria, urinary frequency, urinary hesitancy, no genital pain Rectal: no pain, no incontinence, no bleeding Musculoskeletal: no neck pain, no shooting arm pain, no arm numbness/tingling Integumentary: no pruritis, no redness, no sores, no wounds, no jaundice Neurological: no paralysis, no weakness, no parathesias, no numbness, no tingling, no seizures Psychiatric: no anxiety, no memory loss, no sleep disturbances, no hypersomnia, no change in appetite, no suicidal ideation Endocrine: no cold intolerance, no heat intolerance, no polyphagia, no excessive thirst, no polydipsia, no polyuria Hematologic/Lymphatic: no easy bruising, no lymphadenopathy, no lymphedema Allergic/Immunologic: no urticaria, no allergic rhinitis, no wheezing, no angioedema Exam - Constitutional Vitals: Temp Pulse Resp BP Pulse Ox 97.9 F 82 16 132/98 98 04/20/18 07:01 04/20/18 07:01 04/20/18 07:01 04/20/18 07:01 04/20/18 07:01 General appearance: Present: no acute distress, well-nourished - EENT Eyes: Present: PERRL ENT: hearing intact, clear oral mucosa - Neck Neck: Present: supple, normal ROM - Respiratory Respiratory effort: normal Respiratory: bilateral: CTA - Cardiovascular Heart Sounds: Present: S1 & S2. Absent: rub, click - Extremities Extremities: pulses symmetrical, No edema Peripheral Pulses: within normal limits - Abdominal General gastrointestinal: Present: soft, non-tender, non-distended, normal bowel sounds Localized gastrointestinal: tender: suprapubic Male genitourinary: Present: enlarged prostate - Integumentary Integumentary: Present: clear, warm, dry - Musculoskeletal Musculoskeletal: gait normal, strength equal bilaterally - Psychiatric Psychiatric: appropriate mood/affect, intact judgment & insight - Neurologic Neurologic: CNII-XII intact, moves all extremities Results - Labs CBC & Chem 7: 04/20/18 16:27 04/20/18 06:55 Labs: Abnormal lab results 04/20/18 04/20/18 04/20/18 Range/Units 06:55 06:55 06:55 RBC 3.39 L (3.65-5.03) M/mm3 Hgb 10.2 L (11.8-15.2) gm/dl Hct 30.2 L (35.5-45.6) % PT 18.2 H (12.2-14.9) Sec. INR 1.41 H (0.87-1.13) Potassium 3.5 L (3.6-5.0) mmol/L Creatinine 0.7 L (0.8-1.5) mg/dL Glucose 111 H (75-100) mg/dL Assessment and Plan - Patient Problems (1) Prostate cancer Current Visit: Yes Status: Acute Plan to address problem: Continue hormone therapy, outpatient oncology F/U, supportive care. (2) Urinary obstruction Current Visit: Yes Status: Acute Plan to address problem: IR consulted, pending surgical intervention. (3) Atrial flutter Current Visit: Yes Status: Acute Plan to address problem: continue prehospital therapy, hold anticoagulation preoperatively. resume postoperatively as per IR. Admit to telemetry. (4) DVT prophylaxis Current Visit: Yes Status: Acute Plan to address problem: SCD to BLE while in bed.
[2018-04-20] MEDS ORDERED: SODIUM CHLORIDE FLUSH SYRINGE 10 ML IV PRN (10:06)
[2018-04-20] MEDS ORDERED: ZOFRAN IV PRN (10:06)
[2018-04-20] MEDS ORDERED: TYLENOL PO PRN (10:06)
[2018-04-20] MEDS ORDERED: PROVENTIL IH PRN (10:06)
[2018-04-20] MEDS ORDERED: LEUPROLIDE ACETATE 45 MG SQ SCH (10:15)
--- NOTE | 2018-04-20 10:30 | Operative Report ---
Operative Report Operative Report: EXAM: 1. Ultrasound and fluoroscopic guided access of the lower posterior calyx of the right kidney 2. Diagnostic injection of the left kidney through the access needle 3. Nephrostogram of the right kidney 4. Percutaneous nephrostomy tube placement of the right kidney DATE: 04/20/18 AUXILIARY PLANT OPERATOR: ASHWINI FRAZIER MD INDICATION: Right-sided hydronephrosis with prostate cancer MEDICATIONS: Please see nursing report for full details. DEVICES: 8 Thai nephrostomy tube CONTRAST: 20 mL of nonionic contrast PROCEDURE: The risks, benefits, and alternatives were discussed with the patient; written informed consent was obtained. The patient's back was prepped and draped in a sterile fashion. The patient's puncture site was anesthetized with lidocaine. The only sonographic target was the renal pelvis, which was dilated. Under direct ultrasound guidance, the renal pelvis was accessed with a 21-gauge needle. Urine was aspirated and contrast was injected revealing mild hydronephrosis and hydroureter with some obstruction at the UVJ junction. Afterwards, under fluoroscopic guidance, the lower pole posterior calyx was accessed with a 21-gauge needle. 0.018 inch wire was passed into the collecting system. There was difficulty advancing the transitional dilator over the wire and therefore the inner portion of the dilator was advanced over the wire and the wire was exchanged for a V18. Then the transitional 6 Thai Accu stick system was reassembled. 6 Thai Accustick system was advanced over the wire and passed into the collecting system. Wire, inner dilator and cannula were removed. Contrast was injected confirming position within the collecting system. 0.035 inch Amplatz wire was advanced through the transitional dilator of the AccuStick system and the dilator was removed. 8 Thai nephrostomy tube was advanced over the wire. Wire was removed. [place] loop was performed in the renal pelvis. Contrast was injected revealing clot in the collecting system. The nephrostomy tube was sutured in place with Ethilon. Sterile dressing applied. Patient tolerated the procedure well. She was transferred to the recovery area in stable condition. FINDINGS: Please see procedure note above. IMPRESSION: 1. Successful nephrostogram of the right kidney demonstrating mild hydronephrosis and hydroureter. 2. Percutaneous nephrostomy tube placement in the lower posterior calyx of the right kidney.
--- NOTE | 2018-04-20 11:15 | Event Note ---
Date: 04/20/18 78-year-old male with prostate cancer and mild right hydronephrosis status post right-sided nephrostomy. Clot performed in the collecting system after procedure and patient has some pain. Hemoglobin drawn. Repeat hemoglobin will be drawn in 4 PM. Patient will be admitted for monitoring. Hopefully, patient will not require embolization and can be managed conservatively. Eliquis for A fib held for 2 days prior to procedure. Will probably need to hold anticoagulation for 2 weeks. Discussed with the patient the risks, benefits, and alternatives of holding Eliquis vs risk of stroke from a fib. Unfortunately, bleeding in the collecting system prevents quick resumption of anticoagulation. Case was discussed with Dr. Case of hospitalist service and Dr. Garcia of urology. Dr. Garcia may be performing a suprapubic catheter placement on monday.
[2018-04-20 11:56] LABS: Hematocrit 30.9 % (35.5-45.6); Hemoglobin 10.5 gm/dl (11.8-15.2)
[2018-04-20] MEDS: PERCOCET 5/325 PO PRN ×3 (12:09→23:51)
[2018-04-20] MEDS ORDERED: PERCOCET 5/325 ONE (12:11)
[2018-04-20 16:50] LABS: Hematocrit 29.1 % (35.5-45.6)
[2018-04-20] MEDS: PEPCID PO SCH (22:18)
[2018-04-20] MEDS: SENOKOT S PO SCH (22:18)
[2018-04-20] MEDS: SODIUM CHLORIDE FLUSH SYRINGE 10 ML IV SCH (22:20)
[2018-04-21 06:28] LABS: Basophils % (Auto) 0.6 % (0.0-1.8); Eosinophils # (Auto) 0.1 K/mm3 (0.0-0.4); Eosinophils % (Auto) 1.4 % (0.0-4.3); Hematocrit 26.7 % (35.5-45.6); Hemoglobin 9.2 gm/dl (11.8-15.2); Lymphocytes # (Auto) 0.6 K/mm3 (1.2-5.4); Lymphocytes % (Auto) 12.6 % (13.4-35.0); Mean Corpuscular HGB Conc 34 % (32-34); Mean Corpuscular Volume 88 fl (84-94); Monocytes # (Auto) 0.5 K/mm3 (0.0-0.8); Monocytes % (Auto) 9.9 % (0.0-7.3); Platelet Count 170 K/mm3 (140-440); Red Blood Count 3.03 M/mm3 (3.65-5.03); Red Cell Distribution Width 14.3 % (13.2-15.2)
[2018-04-21] MEDS: PERCOCET 5/325 PO PRN ×2 (06:32→12:26)
[2018-04-21 06:46] LABS: BUN/Creatinine Ratio 13; Blood Urea Nitrogen 8 mg/dL (9-20); Hemolysis Index 2
[2018-04-21] MEDS: MIRALAX 3350 PO SCH (09:46)
[2018-04-21] MEDS: PEPCID PO SCH ×2 (09:46→22:13)
[2018-04-21] MEDS: LOPRESSOR PO SCH (09:47)
[2018-04-21] MEDS: COZAAR PO SCH (09:47)
[2018-04-21] MEDS ORDERED: NON-FORMULARY (Losartan Potassium [Losartan Potassium] 100 MG) PO SCH (10:00)
[2018-04-21] MEDS: SODIUM CHLORIDE FLUSH SYRINGE 10 ML IV SCH ×2 (10:02→22:13)
[2018-04-21] MEDS ORDERED: K-DUR PO ONE (15:05)
--- NOTE | 2018-04-21 15:24 | Progress Note ---
Assessment and Plan / Prostate cancer, stage IV Continue hormone therapy, outpatient oncology F/U, supportive care. / Urinary obstruction IR consulted, status post right PCN tube placement Plan to place a suprapubic catheter next week / Atrial flutter continue prehospital therapy, hold anticoagulation for now. resume postoperatively as per IR. / DVT prophylaxis SCD to BLE while in bed. Brief History: 78 YO Male with CAD S/P Stent Placement, Atrial Flutter on Therapeutic Anticoagulation (Eliquis), HTN, PVD, AAA, advance Prostate Cancer S/P Seed implant, Urinary Obstruction admitted directly at the request of Dr. Foley. He was placed on right PCN yesterday, urology consulted, planned for SP catheter next week. Urine output improving. H&H relatively stable. Will continue to monitor hemoglobin. Symptomatically improving. Need to Hold eliquis for 2 weeks (05/03/18). Physical exam: GENERAL: well-developed and well-nourished male lying on bed appeared to be in no discomfort. HEENT: Normocephalic. Atraumatic. No conjunctival congestion or icterus. Patient has moist mucous membranes. NECK: Supple. Trachea midline. CHEST/LUNGS: Clear to auscultated bilaterally, breathing nonlabored. No wheezes crackles or rhonchi. HEART/CARDIOVASCULAR: Regular in rate and rhythm. S1 and S2 positive. ABDOMEN: Abdomen is soft, nontender. Patient has normal bowel sounds. Right PCN tube intact draining slightly blood stained urine SKIN: There is no rash. Warm and dry. NEURO: No focal motor deficit. Follows command. MUSCULOSKELETAL: No joint effusion or tenderness. EXTRIMITY: No edema, no cyanosis or clubbing. PSYCH: Cooperative. Subjective Date of service: 04/21/18 Interval history: Patient seen and examined. Medical records and medication list reviewed. No acute event overnight noted by the RN. Patient denies any chest pain or difficulty breathing. Patient is tolerating diet. Draining bloodstained urine Discussed plan of care at bedside with patient. Objective - Constitutional Vitals: Vital Signs - 12hr 04/21/18 04/21/18 04/21/18 04:49 06:32 08:15 Temperature 98.1 F Pulse Rate 69 46 L Respiratory 20 18 18 Rate Blood Pressure 128/88 146/97 O2 Sat by Pulse 96 96 Oximetry 04/21/18 04/21/1804/21/19 08:18 09:47 10:00 Temperature 98.1 F Pulse Rate 67 53 L Respiratory Rate Blood Pressure 146/97 O2 Sat by Pulse Oximetry 04/21/18 04/21/18 12:13 12:32 Temperature 98.0 F 98.0 F Pulse Rate 59 L Respiratory 18 Rate Blood Pressure 125/88 O2 Sat by Pulse 98 Oximetry - Labs CBC & Chem 7: 04/22/18 05:53 04/22/18 05:53 Labs: Abnormal lab results 04/20/18 04/21/18 04/21/18 Range/Units 16:27 06:05 06:05 RBC 3.03 L (3.65-5.03) M/mm3 Hgb 10.0 L 9.2 L (11.8-15.2) gm/dl Hct 29.1 L 26.7 L (35.5-45.6) % Lymph % (Auto) 12.6 L (13.4-35.0) % [place] % (Auto) 9.9 H (0.0-7.3) % Lymph # 0.6 L (1.2-5.4) K/mm3 Seg Neutrophils % 75.5 H (40.0-70.0) % Potassium 3.3 L (3.6-5.0) mmol/L BUN 8 L (9-20) mg/dL Creatinine 0.6 L (0.8-1.5) mg/dL Calcium 8.0 L (8.4-10.2) mg/dL
--- NOTE | 2018-04-21 16:06 | Progress Note ---
Assessment and Plan 78 year old female with advanced prostate cancer s/p right nephrostomy tube placement. Urine output improving. H&H relatively stable. Will continue to monitor hemoglobin. Symptomatically improving. Discussed with family that Dr. Garcia will plan on placing suprapubic catheter on monday. Hold eliquis for 2 weeks (05/03/18). Discussed with family. Subjective Date of service: 04/21/18 Interval history: Urine from nguyen with old blood, no fresh blood. Right nephrostomy bag has some old blood, no fresh blood. Urine clearing. Right flank pain improving. Discussed with family that Dr. Garcia plans to place a suprapubic catheter on monday. Objective - Constitutional Vitals: Vital Signs - 12hr 04/21/18 04/21/18 04/21/18 04:49 06:32 08:15 Temperature 98.1 F Pulse Rate 69 46 L Respiratory 20 18 18 Rate Blood Pressure 128/88 146/97 O2 Sat by Pulse 96 96 Oximetry 04/21/18 04/21/18 04/21/18 08:18 09:47 10:00 Temperature 98.1 F Pulse Rate 67 53 L Respiratory Rate Blood Pressure 146/97 O2 Sat by Pulse Oximetry 04/21/18 04/21/18 12:13 12:32 Temperature 98.0 F 98.0 F Pulse Rate 59 L Respiratory 18 Rate Blood Pressure 125/88 O2 Sat by Pulse 98 Oximetry General appearance: Present: no acute distress - EENT Eyes: EOM intact ENT: hearing intact - Respiratory Respiratory effort: normal - Gastrointestinal General gastrointestinal: Present: soft, non-tender (right flank), other (see subjective) - Psychiatric Psychiatric: appropriate mood/affect, cooperative - Labs CBC & Chem 7: 04/21/18 06:05 04/21/18 06:05 Labs: Abnormal lab results 04/20/18 04/21/18 04/21/18 Range/Units 16:27 06:05 06:05 RBC 3.03 L (3.65-5.03) M/mm3 Hgb 10.0 L 9.2 L (11.8-15.2) gm/dl Hct 29.1 L 26.7 L (35.5-45.6) % Lymph % (Auto) 12.6 L (13.4-35.0) % Carbon % (Auto) 9.9 H (0.0-7.3) % Lymph # 0.6 L (1.2-5.4) K/mm3 Seg Neutrophils % 75.5 H (40.0-70.0) % Potassium 3.3 L (3.6-5.0) mmol/L BUN 8 L (9-20) mg/dL Creatinine 0.6 L (0.8-1.5) mg/dL Calcium 8.0 L (8.4-10.2) mg/dL Medications & Allergies - Medications Allergies/Adverse Reactions: Allergies No Known Allergies Allergy (Verified 08/03/16 18:14) Home Medications: Home Medications Medication Instructions Recorded Confirmed Last Taken Type AtorvaSTATin [Lipitor] 40 mg PO DAILY 05/13/15 04/20/18 04/18/18 History Leuprolide Acetate [Eligard] 45 mg SQ [id number] 08/03/16 04/20/18 03/05/18 Histor y Apixaban [Eliquis] 5 mg PO BID 09/04/17 04/20/18 04/18/18 History Metoprolol [Lopressor] 25 mg PO DAILY 09/04/17 04/20/18 04/18/18 History Dronedarone HCl [Multaq] 400 mg PO BID 09/20/17 04/20/18 04/18/18 History Apalutamide [Erleada] 4 tab PO QDAY 04/20/18 04/20/18 04/18/18 History Aspirin [Aspirin EC] 81 mg PO QDAY 04/20/18 04/20/18 04/18/18 History Losartan Potassium 100 mg PO QDAY 04/20/18 04/20/18 04/18/18 History Active Medications: Generic Name Dose Route Start Last Admin Trade Name Freq PRN Reason Stop Dose Admin Acetaminophen 650 mg 04/20/18 10:06 Tylenol PO Q4H PRN Pain MILD(1-3)/Fever >100.5/OLMEDO Albuterol 2.5 mg 04/20/18 10:06 Proventil IH Q4HRT PRN Shortness Of Breath Atorvastatin Calcium 40 mg 04/20/18 22:00 04/20/18 22:18 Lipitor PO 40 mg HS BELIA Administration Famotidine 20 mg 04/20/18 22:00 04/21/18 09:46 Pepcid PO 20 mg BID BELIA Administration Sodium Chloride 500 mls @ 50 mls/hr 04/20/18 07:00 04/20/18 07:06 Nacl 0.9% 500 Ml IV 50 mls/hr DIRECT BELIA Administration Losartan Potassium 100 mg 04/21/18 10:00 04/21/18 09:47 Cozaar PO 100 mg QDAY BELIA Administration Metoprolol Tartrate 25 mg 04/21/18 10:00 04/21/18 09:47 Lopressor PO 25 mg DAILY BELIA Administration Miscellaneous Medication 4 tab 04/21/18 10:00 Apalutamide [Erleada] PO QDAY BELIA Miscellaneous Medication 400 mg 04/20/18 22:00 Dronedarone Hcl [Multaq] PO BID BELIA Miscellaneous Medication 45 mg 04/20/18 10:15 Leuprolide Acetate [Eligard] SQ [id number] BELIA Ondansetron HCl 4 mg 04/20/18 10:06 Zofran IV Q8H PRN Nausea And Vomiting Oxycodone/Acetaminophen 1 tab 04/20/18 10:06 04/21/18 12:26 Percocet 5/325 PO 1 tab Q6H PRN Administration Pain, Moderate (4-6) Polyethylene Glycol 17 gm 04/21/18 10:00 04/21/18 09:46 Miralax 3350 PO 17 gm QDAY BELIA Administration Senna/Docusate Sodium 1 tab 04/20/18 22:00 04/20/18 22:18 Senokot S PO 1 tab QHS BELIA Administration Sodium Chloride 10 ml 04/20/18 22:00 04/21/18 10:02 Sodium Chloride Flush Syringe 10 Ml IV 10 ml BID BELIA Administration Sodium Chloride 10 ml 04/20/18 10:06 Sodium Chloride Flush Syringe 10 Ml IV PRN PRN LINE FLUSH
[2018-04-21] MEDS: DRONEDARONE HCL 400 MG PO SCH (17:22)
[2018-04-21] MEDS: NACL 0.9% 500 ML 500 ML IV SCH (18:19)
[2018-04-21] MEDS: [UNRECOGNIZED DRUG - OTHER] PO SCH (18:25)
[2018-04-21] MEDS: SENOKOT S PO SCH (22:13)
[2018-04-21 23:20] LABS: Hematocrit 27.2 % (35.5-45.6); Hemoglobin 9.1 gm/dl (11.8-15.2)
[2018-04-22] MEDS: NACL 0.9% 500 ML 500 ML IV SCH ×3 (04:20→22:49)
[2018-04-22 06:47] LABS: Hematocrit 27.8 % (35.5-45.6); Hemoglobin 9.3 gm/dl (11.8-15.2)
[2018-04-22 06:53] LABS: BUN/Creatinine Ratio 13; Blood Urea Nitrogen 8 mg/dL (9-20); Calcium 8.2 mg/dL (8.4-10.2); Hemolysis Index 7
--- NOTE | 2018-04-22 08:50 | Progress Note ---
Assessment and Plan post er perc nguyen for spt monday Subjective Date of service: 04/22/18 Principal diagnosis: prostate cancer Objective - Constitutional Vitals: Vital Signs - 12hr 04/21/18 04/21/18 21:57 23:47 Temperature 98.1 F Pulse Rate 63 Respiratory 17 Rate Blood Pressure 123/91 O2 Sat by Pulse 97 96 Oximetry General appearance: Present: no acute distress - Neck Neck: supple - Gastrointestinal General gastrointestinal: Present: soft, non-tender - Labs CBC & Chem 7: 04/22/18 05:53 04/22/18 05:53 Labs: Abnormal lab results 04/21/18 04/22/18 04/22/18 Range/Units 23:06 05:53 05:53 Hgb 9.1 L 9.3 L (11.8-15.2) gm/dl Hct 27.2 L 27.8 L (35.5-45.6) % BUN 8 L (9-20) mg/dL Creatinine 0.6 L (0.8-1.5) mg/dL Calcium 8.2 L (8.4-10.2) mg/dL Medications & Allergies - Medications Allergies/Adverse Reactions: Allergies No Known Allergies Allergy (Verified 08/03/16 18:14) Home Medications: Home Medications Medication Instructions Recorded Confirmed Last Taken Type AtorvaSTATin [Lipitor] 40 mg PO DAILY 05/13/15 04/20/18 04/18/18 History Leuprolide Acetate [Eligard] 45 mg SQ [id number] 08/03/16 04/20/18 03/05/18 History Apixaban [Eliquis] 5 mg PO BID 09/04/17 04/20/18 04/18/18 History Metoprolol [Lopressor] 25 mg PO DAILY 09/04/17 04/20/18 04/18/18 History Dronedarone HCl [Multaq] 400 mg PO BID 09/20/17 04/20/18 04/18/18 History Apalutamide [Erleada] 4 tab PO QDAY 04/20/18 04/20/18 04/18/18 History Aspirin [Aspirin EC] 81 mg PO QDAY 04/20/18 04/20/18 04/18/18 History Losartan Potassium 100 mg PO QDAY 04/20/18 04/20/18 04/18/18 History Active Medications: Generic Name Dose Route Start Last Admin Trade Name Freq PRN Reason Stop Dose Admin Acetaminophen 650 mg 04/20/18 10:06 Tylenol PO Q4H PRN Pain MILD(1-3)/Fever >100.5/OLMEDO Albuterol 2.5 mg 04/20/18 10:06 Proventil IH Q4HRT PRN Shortness Of Breath Atorvastatin Calcium 40 mg 04/20/18 22:00 04/21/18 22:12 Lipitor PO 40 mg HS BELIA Administration Famotidine 20 mg 04/20/18 22:00 04/21/18 22:13 Pepcid PO 20 mg BID BELIA Administration Sodium Chloride 500 mls @ 50 mls/hr 04/20/18 07:00 04/22/18 04:20 Nacl 0.9% 500 Ml IV 50 mls/hr DIRECT BELIA Administration Losartan Potassium 100 mg 04/21/18 10:00 04/21/18 09:47 Cozaar PO 100 mg QDAY BELIA Administration Metoprolol Tartrate 25 mg 04/21/18 10:00 04/21/18 09:47 Lopressor PO 25 mg DAILY BELIA Administration Miscellaneous Medication 4 tab 04/21/18 17:00 04/21/18 18:25 Apalutamide [Erleada] PO 4 tab QDAY BELIA Administration Miscellaneous Medication 400 mg 04/21/18 17:00 04/21/18 17:22 Dronedarone Hcl [Multaq] PO 400 mg BIDDIAB BELIA Administration Miscellaneous Medication 45 mg 04/20/18 10:15 Leuprolide Acetate [Eligard] SQ [id number] BELIA Ondansetron HCl 4 mg 04/20/18 10:06 Zofran IV Q8H PRN Nausea And Vomiting Oxycodone/Acetaminophen 1 tab 04/20/18 10:06 04/21/18 12:26 Percocet 5/325 PO 1 tab Q6H PRN Administration Pain, Moderate (4-6) Polyethylene Glycol 17 gm 04/21/18 10:00 04/21/18 09:46 Miralax 3350 PO 17 gm QDAY BELIA Administration Senna/Docusate Sodium 1 tab 04/20/18 22:00 04/21/18 22:13 Senokot S PO 1 tab QHS BELIA Administration Sodium Chloride 10 ml 04/20/18 22:00 04/21/18 22:13 Sodium Chloride Flush Syringe 10 Ml IV 10 ml BID BELIA Administration Sodium Chloride 10 ml 04/20/18 10:06 Sodium Chloride Flush Syringe 10 Ml IV PRN PRN LINE FLUSH
[2018-04-22] MEDS: DRONEDARONE HCL 400 MG PO SCH ×2 (09:19→17:07)
[2018-04-22] MEDS: PEPCID PO SCH ×2 (09:23→22:44)
[2018-04-22] MEDS: LOPRESSOR PO SCH (09:23)
[2018-04-22] MEDS: MIRALAX 3350 PO SCH (09:24)
[2018-04-22] MEDS: SODIUM CHLORIDE FLUSH SYRINGE 10 ML IV SCH ×2 (09:24→22:44)
[2018-04-22] MEDS: COZAAR PO SCH (09:24)
[2018-04-22] MEDS: PERCOCET 5/325 PO PRN ×2 (09:25→18:35)
--- NOTE | 2018-04-22 09:42 | Progress Note ---
Assessment and Plan / Prostate cancer, stage IV Continue hormone therapy, outpatient oncology F/U, supportive care. / Urinary obstruction IR consulted, status post right PCN tube placement Plan to place a suprapubic catheter next week / Atrial flutter continue prehospital therapy, hold anticoagulation for now. resume postoperatively as per IR. / DVT prophylaxis SCD to BLE while in bed. Brief History: 78 YO Male with CAD S/P Stent Placement, Atrial Flutter on Therapeutic Anticoagulation (Eliquis), HTN, PVD, AAA, advance Prostate Cancer S/P Seed implant, Urinary Obstruction admitted directly at the request of Dr. Foley. He was placed on right PCN yesterday, urology consulted, planned for SP catheter next week. Urine output improving. H&H relatively stable. Will continue to monitor hemoglobin. Symptomatically improving. Need to Hold eliquis for 2 weeks (05/03/18). Physical exam: GENERAL: well-developed and well-nourished male lying on bed appeared to be in no discomfort. HEENT: Normocephalic. Atraumatic. No conjunctival congestion or icterus. Patient has moist mucous membranes. NECK: Supple. Trachea midline. CHEST/LUNGS: Clear to auscultated bilaterally, breathing nonlabored. No wheezes crackles or rhonchi. HEART/CARDIOVASCULAR: Regular in rate and rhythm. S1 and S2 positive. ABDOMEN: Abdomen is soft, nontender. Patient has normal bowel sounds. Right PCN tube intact draining clear urine SKIN: There is no rash. Warm and dry. NEURO: No focal motor deficit. Follows command. MUSCULOSKELETAL: No joint effusion or tenderness. EXTRIMITY: No edema, no cyanosis or clubbing. PSYCH: Cooperative. Subjective Date of service: 04/22/18 Principal diagnosis: prostate cancer Interval history: Patient seen and examined. Medical records and medication list reviewed. No acute event overnight noted by the RN. Patient denies any chest pain or difficulty breathing. Patient is tolerating diet. Urine much clearer today Discussed plan of care at bedside with patient. Objective - Constitutional Vitals: Vital Signs - 12hr 04/21/18 04/21/18 04/22/18 21:57 23:47 08:56 Temperature 98.1 F Pulse Rate 63 84 Respiratory 17 18 Rate Blood Pressure 123/91 157/108 O2 Sat by Pulse 97 96 100 Oximetry 02/04/22/18 04/22/18 09:04 09:23 09:24 Temperature 98.5 F Pulse Rate 84 84 Respiratory Rate Blood Pressure 154/108 154/108 O2 Sat by Pulse Oximetry - Labs CBC & Chem 7: 04/23/18 05:44 04/23/18 05:44 Labs: Abnormal lab results 04/21/18 04/22/18 04/22/18 Range/Units 23:06 05:53 05:53 Hgb 9.1 L 9.3 L (11.8-15.2) gm/dl Hct 27.2 L 27.8 L (35.5-45.6) % BUN 8 L (9-20) mg/dL Creatinine 0.6 L (0.8-1.5) mg/dL Calcium 8.2 L (8.4-10.2) mg/dL
[2018-04-22] MEDS: [UNRECOGNIZED DRUG - OTHER] PO SCH (10:46)
[2018-04-22 15:45] LABS: Hematocrit 26.4 % (35.5-45.6); Hemoglobin 9.1 gm/dl (11.8-15.2)
--- NOTE | 2018-04-22 17:42 | Progress Note ---
Assessment and Plan 78 year old female with advanced prostate cancer s/p right nephrostomy tube placement. Urine output improving. H&H stable. Can be discharged at this time from IR perspective, but needs suprapubic catheter. Hold eliquis for 2 weeks (05/03/18). Discussed with family. Dr. Garcia will plan to place suprapubic catheter prior to discharge. Subjective Date of service: 04/22/18 Principal diagnosis: prostate cancer Interval history: Urine cleared. Right nephrostomy bag cleared. Right flank pain improving. Discussed with family that Dr. Garcia plans to place a suprapubic catheter. Objective - Constitutional Vitals: Vital Signs - 12hr 04/22/18 04/22/18 04/22/18 08:56 09:04 09:23 Temperature 98.5 F Pulse Rate 84 84 Respiratory 18 Rate Blood Pressure 157/108 154/108 O2 Sat by Pulse 100 Oximetry 04/22/18 04/22/18 04/22/18 09:24 10:00 11:51 Temperature Pulse Rate 84 73 76 Respiratory 18 Rate Blood Pressure 154/108 127/79 O2 Sat by Pulse 96 97 Oximetry 04/22/18 04/22/18 04/22/18 11:56 16:43 16:45 Temperature 98.5 F 98.3 F Pulse Rate 56 L Respiratory 18 Rate Blood Pressure 105/78 O2 Sat by Pulse 98 Oximetry General appearance: Present: no acute distress - EENT Eyes: EOM intact ENT: hearing intact - Respiratory Respiratory effort: normal - Gastrointestinal General gastrointestinal: Present: other (mild right CVT) - Psychiatric Psychiatric: appropriate mood/affect, cooperative - Labs CBC & Chem 7: 04/22/18 15:35 04/22/18 05:53 Labs: Abnormal lab results 04/21/18 04/22/18 04/22/18 Range/Units 23:06 05:53 05:53 Hgb 9.1 L 9.3 L (11.8-15.2) gm/dl Hct 27.2 L 27.8 L (35.5-45.6) % BUN 8 L (9-20) mg/dL Creatinine 0.6 L (0.8-1.5) mg/dL Calcium 8.2 L (8.4-10.2) mg/dL 04/22/18 Range/Units 15:35 Hgb 9.1 L (11.8-15.2) gm/dl Hct 26.4 L (35.5-45.6) % BUN (9-20) mg/dL Creatinine (0.8-1.5) mg/dL Calcium (8.4-10.2) mg/dL Medications & Allergies - Medications Allergies/Adverse Reactions: Allergies No Known Allergies Allergy (Verified 08/03/16 18:14) Home Medications: Home Medications Medication Instructions Recorded Confirmed Last Taken Type AtorvaSTATin [Lipitor] 40 mg PO DAILY 05/13/15 04/20/18 04/18/18 History Leuprolide Acetate [Eligard] 45 mg SQ [id number] 08/03/16 04/20/18 03/05/18 Histor y Apixaban [Eliquis] 5 mg PO BID 09/04/17 04/20/18 04/18/18 History Metoprolol [Lopressor] 25 mg PO DAILY 09/04/17 04/20/18 04/18/18 History Dronedarone HCl [Multaq] 400 mg PO BID 09/20/17 04/20/18 04/18/18 History Apalutamide [Erleada] 4 tab PO QDAY 04/20/18 04/20/18 04/18/18 History Aspirin [Aspirin EC] 81 mg PO QDAY 04/20/18 04/20/18 04/18/18 History Losartan Potassium 100 mg PO QDAY 04/20/18 04/20/18 04/18/18 History Active Medications: Generic Name Dose Route Start Last Admin Trade Name Freq PRN Reason Stop Dose Admin Acetaminophen 650 mg 04/20/18 10:06 Tylenol PO Q4H PRN Pain MILD(1-3)/Fever >100.5/OLMEDO Albuterol 2.5 mg 04/20/18 10:06 Proventil IH Q4HRT PRN Shortness Of Breath Atorvastatin Calcium 40 mg 04/20/18 22:00 04/21/18 22:12 Lipitor PO 40 mg HS BELIA Administration Famotidine 20 mg 04/20/18 22:00 04/22/18 09:23 Pepcid PO 20 mg BID BELIA Administration Sodium Chloride 500 mls @ 50 mls/hr 04/20/18 07:00 04/22/18 13:14 Nacl 0.9% 500 Ml IV 50 mls/hr DIRECT BELIA Administration Losartan Potassium 100 mg 04/21/18 10:00 04/22/18 09:24 Cozaar PO 100 mg QDAY BELIA Administration Metoprolol Tartrate 25 mg 04/21/18 10:00 04/22/18 09:23 Lopressor PO 25 mg DAILY BELIA Administration Miscellaneous Medication 4 tab 04/21/18 17:00 04/22/18 10:46 Apalutamide [Erleada] PO 4 tab QDAY BELIA Administration Miscellaneous Medication 400 mg 04/21/18 17:00 04/22/18 17:07 Dronedarone Hcl [Multaq] PO 400 mg BIDDIAB BELIA Administration Miscellaneous Medication 45 mg 04/20/18 10:15 Leuprolide Acetate [Eligard] SQ [id number] BELIA Ondansetron HCl 4 mg 04/20/18 10:06 Zofran IV Q8H PRN Nausea And Vomiting Oxycodone/Acetaminophen 1 tab 04/20/18 10:06 04/22/18 09:25 Percocet 5/325 PO 1 tab Q6H PRN Administration Pain, Moderate (4-6) Polyethylene Glycol 17 gm 04/21/18 10:00 04/22/18 09:24 Miralax 3350 PO 17 gm QDAY BELIA Administration Senna/Docusate Sodium 1 tab 04/20/18 22:00 04/21/18 22:13 Senokot S PO 1 tab QHS BELIA Administration Sodium Chloride 10 ml 04/20/18 22:00 04/22/18 09:24 Sodium Chloride Flush Syringe 10 Ml IV 10 ml BID BELIA Administration Sodium Chloride 10 ml 04/20/18 10:06 Sodium Chloride Flush Syringe 10 Ml IV PRN PRN LINE FLUSH
[2018-04-22] MEDS: SENOKOT S PO SCH (22:43)
[2018-04-23] MEDS: PERCOCET 5/325 PO PRN ×4 (00:38→21:03)
[2018-04-23 06:00] LABS: Basophils % (Auto) 0.5 % (0.0-1.8); Eosinophils # (Auto) 0.1 K/mm3 (0.0-0.4); Eosinophils % (Auto) 1.9 % (0.0-4.3); Lymphocytes # (Auto) 0.6 K/mm3 (1.2-5.4); Lymphocytes % (Auto) 12.6 % (13.4-35.0); Mean Corpuscular HGB Conc 34 % (32-34); Mean Corpuscular Volume 91 fl (84-94); Monocytes # (Auto) 0.4 K/mm3 (0.0-0.8); Monocytes % (Auto) 8.9 % (0.0-7.3); Platelet Count 168 K/mm3 (140-440); Red Blood Count 2.98 M/mm3 (3.65-5.03); Red Cell Distribution Width 14.3 % (13.2-15.2)
[2018-04-23 07:38] LABS: Alanine Aminotransferase 11 units/L (7-56); Albumin 2.6 g/dL (3.9-5); BUN/Creatinine Ratio 10; Blood Urea Nitrogen 7 mg/dL (9-20); Calcium 8.3 mg/dL (8.4-10.2); Hemolysis Index 18
[2018-04-23 07:43] LABS: Bilirubin,Direct < 0.2 mg/dL (0-0.2)
[2018-04-23] MEDS: DRONEDARONE HCL 400 MG PO SCH ×2 (08:53→17:01)
[2018-04-23] MEDS: NACL 0.9% 500 ML 500 ML IV SCH (08:57)
[2018-04-23] MEDS: [UNRECOGNIZED DRUG - OTHER] PO SCH (10:30)
[2018-04-23] MEDS: SODIUM CHLORIDE FLUSH SYRINGE 10 ML IV SCH ×2 (11:42→21:05)
[2018-04-23] MEDS: MIRALAX 3350 PO SCH (11:42)
[2018-04-23] MEDS: COZAAR PO SCH (11:42)
[2018-04-23] MEDS: PEPCID PO SCH ×2 (11:42→21:03)
[2018-04-23] MEDS: LOPRESSOR PO SCH (11:42)
--- NOTE | 2018-04-23 12:13 | Progress Note ---
Assessment and Plan for spt tomorrow Subjective Date of service: 04/23/18 Principal diagnosis: prostate cancer Objective - Constitutional Vitals: Vital Signs - 12hr 04/23/18 04/23/18 08:45 08:46 Temperature 98.1 F Pulse Rate 68 Respiratory 18 Rate Blood Pressure 148/95 O2 Sat by Pulse 97 Oximetry General appearance: Present: no acute distress - Neck Neck: supple - Respiratory Respiratory effort: normal - Labs CBC & Chem 7: 04/23/18 05:44 04/23/18 05:44 Labs: Abnormal lab results 04/22/18 04/22/18 04/23/18 Range/Units 15:35 21:25 05:44 RBC 2.98 L (3.65-5.03) M/mm3 Hgb 9.1 L 9.0 L (11.8-15.2) gm/dl Hct 26.4 L 27.0 L (35.5-45.6) % Lymph % (Auto) 12.6 L (13.4-35.0) % [place] % (Auto) 8.9 H (0.0-7.3) % Lymph # 0.6 L (1.2-5.4) K/mm3 Seg Neutrophils % 76.1 H (40.0-70.0) % BUN (9-20) mg/dL Creatinine (0.8-1.5) mg/dL POC Glucose 125 H (70-105) Calcium (8.4-10.2) mg/dL Total Protein (6.3-8.2) g/dL Albumin (3.9-5) g/dL 04/23/18 Range/Units 05:44 RBC (3.65-5.03) M/mm3 Hgb (11.8-15.2) gm/dl Hct (35.5-45.6) % Lymph % (Auto) (13.4-35.0) % [place] % (Auto) (0.0-7.3) % Lymph # (1.2-5.4) K/mm3 Seg Neutrophils % (40.0-70.0) % BUN 7 L (9-20) mg/dL Creatinine 0.7 L (0.8-1.5) mg/dL POC Glucose (70-105) Calcium 8.3 L (8.4-10.2) mg/dL Total Protein 5.4 L (6.3-8.2) g/dL Albumin 2.6 L (3.9-5) g/dL Medications & Allergies - Medications Allergies/Adverse Reactions: Allergies No Known Allergies Allergy (Verified 08/03/16 18:14) Home Medications: Home Medications Medication Instructions Recorded Confirmed Last Taken Type AtorvaSTATin [Lipitor] 40 mg PO DAILY 05/13/15 04/20/18 04/18/18 History Leuprolide Acetate [Eligard] 45 mg SQ [id number] 08/03/16 04/20/18 03/05/18 History Apixaban [Eliquis] 5 mg PO BID 09/04/17 04/20/18 04/18/18 History Metoprolol [Lopressor] 25 mg PO DAILY 09/04/17 04/20/18 04/18/18 History Dronedarone HCl [Multaq] 400 mg PO BID 09/20/17 04/20/18 04/18/18 History Apalutamide [Erleada] 4 tab PO QDAY 04/20/18 04/20/18 04/18/18 History Aspirin [Aspirin EC] 81 mg PO QDAY 04/20/18 04/20/18 04/18/18 History Losartan Potassium 100 mg PO QDAY 04/20/18 04/20/18 04/18/18 History Active Medications: Generic Name Dose Route Start Last Admin Trade Name Freq PRN Reason Stop Dose Admin Acetaminophen 650 mg 04/20/18 10:06 Tylenol PO Q4H PRN Pain MILD(1-3)/Fever >100.5/OLMEDO Albuterol 2.5 mg 04/20/18 10:06 Proventil IH Q4HRT PRN Shortness Of Breath Atorvastatin Calcium 40 mg 04/20/18 22:00 04/22/18 22:44 Lipitor PO 40 mg HS BELIA Administration Famotidine 20 mg 04/20/18 22:00 04/23/18 11:42 Pepcid PO 20 mg BID BELIA Administration Sodium Chloride 500 mls @ 50 mls/hr 04/20/18 07:00 04/23/18 08:57 Nacl 0.9% 500 Ml IV 50 mls/hr DIRECT BELIA Administration Losartan Potassium 100 mg 04/21/18 10:00 04/23/18 11:42 Cozaar PO 100 mg QDAY BELIA Administration Metoprolol Tartrate 25 mg 04/21/18 10:00 04/23/18 11:42 Lopressor PO 25 mg DAILY BELIA Administration Miscellaneous Medication 4 tab 04/21/18 17:00 04/23/18 10:30 Apalutamide [Erleada] PO 4 tab QDAY BELIA Administration Miscellaneous Medication 400 mg 04/21/18 17:00 04/23/18 08:53 Dronedarone Hcl [Multaq] PO 400 mg BIDDIAB BELIA Administration Miscellaneous Medication 45 mg 04/20/18 10:15 Leuprolide Acetate [Eligard] SQ [id number] BELIA Ondansetron HCl 4 mg 04/20/18 10:06 Zofran IV Q8H PRN Nausea And Vomiting Oxycodone/Acetaminophen 1 tab 04/20/18 10:06 04/23/18 08:43 Percocet 5/325 PO 1 tab Q6H PRN Administration Pain, Moderate (4-6) Polyethylene Glycol 17 gm 04/21/18 10:00 04/23/18 11:42 Miralax 3350 PO 17 gm QDAY EBLIA Administration Senna/Docusate Sodium 1 tab 04/20/18 22:00 04/22/18 22:43 Senokot S PO 1 tab QHS BELIA Administration Sodium Chloride 10 ml 04/20/18 22:00 04/23/18 11:42 Sodium Chloride Flush Syringe 10 Ml IV 10 ml BID BELIA Administration Sodium Chloride 10 ml 04/20/18 10:06 Sodium Chloride Flush Syringe 10 Ml IV PRN PRN LINE FLUSH
--- NOTE | 2018-04-23 16:43 | Progress Note ---
Assessment and Plan / Prostate cancer, stage IV Continue hormone therapy, outpatient oncology F/U, supportive care. / Urinary obstruction IR consulted, status post right PCN tube placement Plan to place a suprapubic catheter tomorrow / Atrial flutter continue prehospital therapy, hold anticoagulation for now. resume postoperatively as per IR. / DVT prophylaxis SCD to BLE while in bed. Brief History: 78 YO Male with CAD S/P Stent Placement, Atrial Flutter on Therapeutic Anticoagulation (Eliquis), HTN, PVD, AAA, advance Prostate Cancer S/P Seed implant, Urinary Obstruction admitted directly at the request of Dr. Foley. He was placed on right PCN yesterday, urology consulted, planned for SP catheter next week. Urine output improving. H&H relatively stable. Will continue to monitor hemoglobin. Symptomatically improving. Need to Hold eliquis for 2 weeks (05/03/18). Physical exam: GENERAL: well-developed and well-nourished male lying on bed appeared to be in no discomfort. HEENT: Normocephalic. Atraumatic. No conjunctival congestion or icterus. Patient has moist mucous membranes. NECK: Supple. Trachea midline. CHEST/LUNGS: Clear to auscultated bilaterally, breathing nonlabored. No wheezes crackles or rhonchi. HEART/CARDIOVASCULAR: Regular in rate and rhythm. S1 and S2 positive. ABDOMEN: Abdomen is soft, nontender. Patient has normal bowel sounds. Right PCN tube intact draining clear urine SKIN: There is no rash. Warm and dry. NEURO: No focal motor deficit. Follows command. MUSCULOSKELETAL: No joint effusion or tenderness. EXTRIMITY: No edema, no cyanosis or clubbing. PSYCH: Cooperative. Subjective Date of service: 04/23/18 Principal diagnosis: prostate cancer Interval history: Patient seen and examined. Medical records and medication list reviewed. No acute event overnight noted by the RN. Patient denies any chest pain or difficulty breathing. Patient is tolerating diet. Urine much clearer today Discussed plan of care at bedside with patient. Objective - Constitutional Vitals: Vital Signs - 12hr 04/23/18 04/23/18 04/23/18 08:45 08:46 10:00 Temperature 98.1 F Pulse Rate 68 73 Pulse Rate [ 75 From Monitor] Respiratory 18 Rate Blood Pressure 148/95 O2 Sat by Pulse 97 Oximetry 04/23/18 04/23/18 16:10 16:11 Temperature 98.4 F Pulse Rate 60 Pulse Rate [ From Monitor] Respiratory 18 Rate Blood Pressure 117/75 O2 Sat by Pulse 98 Oximetry - Labs CBC & Chem 7: 04/23/18 05:44 04/23/18 05:44 Labs: Abnormal lab results 04/22/18 04/23/18 04/23/18 Range/Units 21:25 05:44 05:44 RBC 2.98 L (3.65-5.03) M/mm3 Hgb 9.0 L (11.8-15.2) gm/dl Hct 27.0 L (35.5-45.6) % Lymph % (Auto) 12.6 L (13.4-35.0) % [place] % (Auto) 8.9 H (0.0-7.3) % Lymph # 0.6 L (1.2-5.4) K/mm3 Seg Neutrophils % 76.1 H (40.0-70.0) % BUN 7 L (9-20) mg/dL Creatinine 0.7 L (0.8-1.5) mg/dL POC Glucose 125 H (70-105) Calcium 8.3 L (8.4-10.2) mg/dL Total Protein 5.4 L (6.3-8.2) g/dL Albumin 2.6 L (3.9-5) g/dL Prealbumin (0.200-0.400) g/L 04/23/18 Range/Units 05:44 RBC (3.65-5.03) M/mm3 Hgb (11.8-15.2) gm/dl Hct (35.5-45.6) % Lymph % (Auto) (13.4-35.0) % [place] % (Auto) (0.0-7.3) % Lymph # (1.2-5.4) K/mm3 Seg Neutrophils % (40.0-70.0) % BUN (9-20) mg/dL Creatinine (0.8-1.5) mg/dL POC Glucose (70-105) Calcium (8.4-10.2) mg/dL Total Protein (6.3-8.2) g/dL Albumin (3.9-5) g/dL Prealbumin 0.044 L (0.200-0.400) g/L
--- NOTE | 2018-04-23 17:39 | Anesthesia Consultation ---
Anesthesia Consult and Med Hx Date of service: 04/23/18 - Airway Anesthetic Teeth Evaluation: Good ROM Head & Neck: Adequate Mental/Hyoid Distance: Adequate Mallampati Class: Class III Intubation Access Assessment: Possibly Difficult - Pulmonary Exam CTA: Yes - Cardiac Exam Cardiac Exam: RRR - Pre-Operative Health Status ASA Pre-Surgery Classification: ASA3 Proposed Anesthetic Plan: General, MAC - Pulmonary Hx Smoking: No Hx Sleep Apnea: No (SIGIFREDO PRE SCREEN HIGH RISK) - Cardiovascular System Hx Hypertension: Yes Hx Coronary Artery Disease: Yes Hx Heart Attack/AMI: No Hx Percutaneous Transluminal Coronary Angioplasty (PTCA): Yes (stent x 2013) Hx Cardia Arrhythmia: Yes (A-flutter on eliquis (held this admission) and dronedarone) Hx Pacemaker: No Hx Valvular Heart Disease: Yes (s/p AVR/MVR) Hx Peripheral Vascular Disease: Yes - Central Nervous System Hx Seizures: No CVA: No Hx Back Pain: (NECK PAIN) Hx Psychiatric Problems: No - Gastrointestinal Hx Gastroesophageal Reflux Disease: No - Endocrine Hx Renal Disease: Yes (hydronephrosis s/p nephrostomy) Hx Liver Disease: No Hx Insulin Dependent Diabetes: No Hx Non-Insulin Dependent Diabetes: No Hx Thyroid Disease: No - Hematic Hx Anemia: Yes - Other Systems Hx Cancer: Yes (prostate) Hx Obesity: No - Additional Comments Anesthesia Medical History Comments: No hx anesthetic complications.
[2018-04-23] MEDS: SENOKOT S PO SCH (21:03)
[2018-04-24] MEDS: DRONEDARONE HCL 400 MG PO SCH ×2 (08:10→17:12)
[2018-04-24] MEDS: MIRALAX 3350 PO SCH (10:09)
[2018-04-24] MEDS: [UNRECOGNIZED DRUG - OTHER] PO SCH (10:09)
[2018-04-24] MEDS: PEPCID PO SCH ×2 (10:38→22:17)
[2018-04-24] MEDS ORDERED: XYLOCAINE MPF 2% ONE (11:32)
[2018-04-24] MEDS ORDERED: DIPRIVAN 10 MG/ML IV ONE (11:32)
[2018-04-24] MEDS ORDERED: SUBLIMAZE ONE (11:32)
[2018-04-24] MEDS: LACTATED RINGERS 1,000 ML IV SCH (11:35)
[2018-04-24] MEDS ORDERED: PEPCID IV NR (11:38)
[2018-04-24] MEDS: LOPRESSOR PO SCH (11:38)
[2018-04-24] MEDS ORDERED: PEPCID IV ONE (11:38)
[2018-04-24] MEDS: SODIUM CHLORIDE FLUSH SYRINGE 10 ML IV SCH ×2 (11:56→22:30)
[2018-04-24] MEDS ORDERED: ANCEF ONE ×2 (12:16)
[2018-04-24] MEDS ORDERED: ANCEF/STERILE WATER 2 GM/20 ML 2 GM/20 ML SYRINGE IV ONE (12:22)
--- NOTE | 2018-04-24 12:39 | Post Operative Note ---
Date of procedure: 04/24/18 Pre-op diagnosis: urianry retention cap Post-op diagnosis: same Findings: necrosis Procedure: cysto spt Anesthesia: GETA Surgeon: GLORY RENEE Estimated blood loss: minimal Pathology: none Condition: stable Disposition: PACU
--- NOTE | 2018-04-24 12:54 | Operative Report ---
PREOPERATIVE DIAGNOSES: Urinary retention and right hydronephrosis. POSTOPERATIVE DIAGNOSES: Urinary retention and right hydronephrosis. PROCEDURE: Cystoscopy, suprapubic tube insertion. SURGEON: Lake Garcia MD ANESTHESIA: General. FINDINGS: This is a gentleman with necrosis post-radiation; metastatic prostate cancer, now presents for treatment. DESCRIPTION OF PROCEDURE: The patient was brought to the operating room and placed on the operating table. Following the induction of anesthesia, placed in lithotomy position, prepped and draped in usual sterile fashion. At this point, cystourethroscopy was carried out, filled up the bladder, there was severe necrosis and necrotic material. The [place] with some difficulty was able to manipulate this necrosis and we could palpate it anteriorly. A small incision was made over the [place] and this was delivered through the suprapubic wound. A 20-[place] Parekh was brought out through the mid urethra and we followed it and put about 13 mL in the balloon. The patient tolerated the procedure well. A wire was placed back in the bladder and a 20 [place] was placed in the bladder as well. The patient tolerated the procedure well and brought to recovery in stable condition. This tube was secured with silk sutures and will need both tubes in for a couple of days and remove the urethral Parekh. Minimal blood loss. JOB# [id number] MUMTAZ/LAURA
[2018-04-24] MEDS: PERCOCET 5/325 PO PRN ×2 (15:43→22:17)
[2018-04-24] MEDS: COZAAR PO SCH (15:48)
[2018-04-24] MEDS: ANCEF/NS 1 GM/50 ML 1 GM/50 ML BAG IV SCH ×2 (20:59→22:17)
--- NOTE | 2018-04-24 21:36 | Progress Note ---
Assessment and Plan Assessment and plan: 78 YO Male with CAD S/P Stent Placement, Atrial Flutter on Therapeutic Anticoagulation (Eliquis), HTN, PVD, AAA, advance Prostate Cancer S/P Seed implant, Urinary Obstruction admitted directly at the request of Dr. Foley. He was placed on right PCN yesterday, urology consulted, planned for SP catheter next week. Urine output improving. H&H relatively stable. Will continue to monitor hemoglobin. Symptomatically improving. Need to Hold eliquis for 2 weeks (05/03/18). / Prostate cancer, stage IV Continue hormone therapy, outpatient oncology F/U, supportive care. / Urinary obstruction IR consulted, status post right PCN tube placement Plan to place a suprapubic catheter / Atrial flutter continue prehospital therapy, hold anticoagulation for now. resume postoperatively as per IR. / DVT prophylaxis SCD to BLE while in bed. History Interval history: Patient seen and examined. Hospitalist Physical - Physical exam Narrative exam: Physical exam: GENERAL: well-developed and well-nourished male lying on bed appeared to be in no discomfort. HEENT: Normocephalic. Atraumatic. No conjunctival congestion or icterus. Patient has moist mucous membranes. NECK: Supple. Trachea midline. CHEST/LUNGS: Clear to auscultated bilaterally, breathing nonlabored. No wheezes crackles or rhonchi. HEART/CARDIOVASCULAR: Regular in rate and rhythm. S1 and S2 positive. ABDOMEN: Abdomen is soft, nontender. Patient has normal bowel sounds. Right PCN tube intact draining clear urine SKIN: There is no rash. Warm and dry. NEURO: No focal motor deficit. Follows command. MUSCULOSKELETAL: No joint effusion or tenderness. EXTRIMITY: No edema, no cyanosis or clubbing. PSYCH: Cooperative - Constitutional Vitals: Temp Pulse Resp BP Pulse Ox 97.9 F 61 20 130/82 100 04/24/18 16:07 04/24/18 13:30 04/24/18 16:07 04/24/18 16:06 04/24/18 13:30 General appearance: Present: no acute distress Results - Labs CBC & Chem 7: 04/23/18 05:44 04/23/18 05:44 Labs: Laboratory Last Values WBC 4.7 K/mm3 (4.5-11.0) 04/23/18 05:44 RBC 2.98 M/mm3 (3.65-5.03) L 04/23/18 05:44 Hgb 9.0 gm/dl (11.8-15.2) L 04/23/18 05:44 Hct 27.0 % (35.5-45.6) L 04/23/18 05:44 MCV 91 fl (84-94) 04/23/18 05:44 MCH 30 pg (28-32) 04/23/18 05:44 MCHC 34 % (32-34) 04/23/18 05:44 RDW 14.3 % (13.2-15.2) 04/23/18 05:44 Plt Count 168 K/mm3 (140-440) 04/23/18 05:44 Lymph % (Auto) 12.6 % (13.4-35.0) L 04/23/18 05:44 [place] % (Auto) 8.9 % (0.0-7.3) H 04/23/18 05:44 Eos % (Auto) 1.9 % (0.0-4.3) 04/23/18 05:44 Baso % (Auto) 0.5 % (0.0-1.8) 04/23/18 05:44 Lymph # 0.6 K/mm3 (1.2-5.4) L 04/23/18 05:44 [place] # 0.4 K/mm3 (0.0-0.8) 04/23/18 05:44 Eos # 0.1 K/mm3 (0.0-0.4) 04/23/18 05:44 Baso # 0.0 K/mm3 (0.0-0.1) 04/23/18 05:44 Seg Neutrophils % 76.1 % (40.0-70.0) H 04/23/18 05:44 Seg Neutrophils # 3.6 K/mm3 (1.8-7.7) 04/23/18 05:44 PT 18.2 Sec. (12.2-14.9) H 04/20/18 06:55 INR 1.41 (0.87-1.13) H 04/20/18 06:55 APTT 32.9 Sec. (24.2-36.6) 04/20/18 06:55 Sodium 139 mmol/L (137-145) 04/23/18 05:44 Potassium 3.9 mmol/L (3.6-5.0) 04/23/18 05:44 Chloride 101.8 mmol/L (98-107) 04/23/18 05:44 Carbon Dioxide 26 mmol/L (22-30) 04/23/18 05:44 Anion Gap 15 mmol/L 04/23/18 05:44 BUN 7 mg/dL (9-20) L 04/23/18 05:44 Creatinine 0.7 mg/dL (0.8-1.5) L 04/23/18 05:44 Estimated GFR > 60 ml/min 04/23/18 05:44 BUN/Creatinine Ratio 10 % 04/23/18 05:44 Glucose 95 mg/dL (75-100) 04/23/18 05:44 POC Glucose 81 (70-105) 04/23/18 06:05 Calcium 8.3 mg/dL (8.4-10.2) L 04/23/18 05:44 Total Bilirubin 0.50 mg/dL (0.1-1.2) 04/23/18 05:44 Direct Bilirubin < 0.2 mg/dL (0-0.2) 04/23/18 05:44 AST 17 units/L (5-40) 04/23/18 05:44 ALT 11 units/L (7-56) 04/23/18 05:44 Alkaline Phosphatase 92 units/L (35-129) 04/23/18 05:44 Total Protein 5.4 g/dL (6.3-8.2) L 04/23/18 05:44 Albumin 2.6 g/dL (3.9-5) L 04/23/18 05:44 Albumin/Globulin Ratio 0.9 % 04/23/18 05:44 Prealbumin 0.044 g/L (0.200-0.400) L 04/23/18 05:44
[2018-04-24] MEDS: SENOKOT S PO SCH (22:17)
[2018-04-25] MEDS: ANCEF/NS 1 GM/50 ML 1 GM/50 ML BAG IV SCH (05:01)
[2018-04-25] MEDS: PERCOCET 5/325 PO PRN ×2 (06:09→12:26)
[2018-04-25 08:19] VITALS: BP 139/90
[2018-04-25] MEDS: LOPRESSOR PO SCH (09:57)
[2018-04-25] MEDS: PEPCID PO SCH (09:57)
[2018-04-25] MEDS: MIRALAX 3350 PO SCH (09:58)
[2018-04-25] MEDS: [UNRECOGNIZED DRUG - OTHER] PO SCH (09:59)
[2018-04-25] MEDS: DRONEDARONE HCL 400 MG PO SCH (10:00)
[2018-04-25] MEDS: COZAAR PO SCH (10:10)
[2018-04-25] MEDS: SODIUM CHLORIDE FLUSH SYRINGE 10 ML IV SCH (10:11)
[2018-04-25] MEDS: LACTATED RINGERS 1,000 ML IV SCH (12:26)
--- NOTE | 2018-04-25 14:13 | Progress Note ---
Assessment and Plan spt excellent nguyen out path noted home with spt perc will be internaized next week Subjective Date of service: 04/25/18 Principal diagnosis: prostate cancer Objective - Constitutional Vitals: Vital Signs - 12hr 04/25/18 04/25/18 04/25/18 04:46 08:12 12:26 Temperature 97.5 F L 98.2 F Respiratory 16 18 20 Rate Blood Pressure 135/98 139/90 General appearance: Present: no acute distress - Respiratory Respiratory effort: normal Extremities: no ischemia - Gastrointestinal General gastrointestinal: Present: soft, non-tender - Labs CBC & Chem 7: 04/23/18 05:44 04/23/18 05:44 Medications & Allergies - Medications Allergies/Adverse Reactions: Allergies No Known Allergies Allergy (Verified 08/03/16 18:14) Home Medications: Home Medications Medication Instructions Recorded Confirmed Last Taken Type AtorvaSTATin [Lipitor] 40 mg PO DAILY 05/13/15 04/20/18 04/18/18 History Leuprolide Acetate [Eligard] 45 mg SQ [id number] 08/03/16 04/20/18 03/05/18 History Apixaban [Eliquis] 5 mg PO BID 09/04/17 04/20/18 04/18/18 History Metoprolol [Lopressor] 25 mg PO DAILY 09/04/17 04/20/18 04/18/18 History Dronedarone HCl [Multaq] 400 mg PO BID 09/20/17 04/20/18 04/18/18 History Apalutamide [Erleada] 4 tab PO QDAY 04/20/18 04/20/18 04/18/18 History Aspirin [Aspirin EC] 81 mg PO QDAY 04/20/18 04/20/18 04/18/18 History Losartan Potassium 100 mg PO QDAY 04/20/18 04/20/18 04/18/18 History Active Medications: Generic Name Dose Route Start Last Admin Trade Name Freq PRN Reason Stop Dose Admin Acetaminophen 650 mg 04/20/18 10:06 04/24/18 21:11 Tylenol PO 650 mg Q4H PRN Administration Pain MILD(1-3)/Fever >100.5/OLMEDO Albuterol 2.5 mg 04/20/18 10:06 Proventil IH Q4HRT PRN Shortness Of Breath Atorvastatin Calcium 40 mg 04/20/18 22:00 04/24/18 22:17 Lipitor PO 40 mg HS BELIA Administration Famotidine 20 mg 04/20/18 22:00 04/25/18 09:57 Pepcid PO 20 mg BID BELIA Administration Sodium Chloride 500 mls @ 50 mls/hr 04/20/18 07:00 04/23/18 08:57 Nacl 0.9% 500 Ml IV 50 mls/hr DIRECT BELIA Administration Lactated Ringer's 1,000 mls @ 100 mls/hr 04/24/18 11:30 04/25/18 12:26 Lactated Ringers IV 100 mls/hr DIRECT BELIA Administration Cefazolin Sodium 1 gm in 50 mls @ 100 mls/hr 04/24/18 20:00 04/25/18 05:01 Ancef/Ns 1 Gm/50 Ml IV 100 mls/hr Q8HR BELIA Administration Protocol Losartan Potassium 100 mg 04/21/18 10:00 04/25/18 10:10 Cozaar PO 100 mg QDAY BELIA Administration Metoprolol Tartrate 25 mg 04/21/18 10:00 04/25/18 09:57 Lopressor PO 25 mg DAILY BELIA Administration Miscellaneous Medication 4 tab 04/21/18 17:00 04/25/18 09:59 Apalutamide [Erleada] PO 4 tab QDAY BELIA Administration Miscellaneous Medication 400 mg 04/21/18 17:00 04/25/18 10:00 Dronedarone Hcl [Multaq] PO 400 mg BIDDIAB BELIA Administration Miscellaneous Medication 45 mg 04/20/18 10:15 Leuprolide Acetate [Eligard] SQ [id number] BELIA Ondansetron HCl 4 mg 04/20/18 10:06 Zofran IV Q8H PRN Nausea And Vomiting Oxycodone/Acetaminophen 1 tab 04/20/18 10:06 04/25/18 12:26 Percocet 5/325 PO 1 tab Q6H PRN Administration Pain, Moderate (4-6) Polyethylene Glycol 17 gm 04/21/18 10:00 04/25/18 09:58 Miralax 3350 PO 17 gm QDAY BELIA Administration Senna/Docusate Sodium 1 tab 04/20/18 22:00 04/24/18 22:17 Senokot S PO 1 tab QHS BELIA Administration Sodium Chloride 10 ml 02/22/19 22:00 04/25/18 10:11 Sodium Chloride Flush Syringe 10 Ml IV 10 ml BID BELIA Administration Sodium Chloride 10 ml 04/20/18 10:06 Sodium Chloride Flush Syringe 10 Ml IV PRN PRN LINE FLUSH
--- NOTE | 2018-04-25 15:37 | Progress Note ---
Assessment and Plan Assessment and plan: Patient is a 78 YO Male with CAD S/P Stent Placement, Atrial Flutter on Therapeutic Anticoagulation (Eliquis), HTN, PVD, AAA, advance Prostate Cancer S/P Seed implant, Urinary Obstruction admitted directly at the request of Dr. Foley. He was placed on right PCN yesterday, urology consulted, planned for SP catheter next week. * Urine output improving. H&H relatively stable. Will continue to monitor hemo globin. Symptomatically improving. * Need to Hold eliquis for 2 weeks (05/03/18). / Prostate cancer, stage IV Continue hormone therapy, outpatient oncology F/U, supportive care. / Urinary obstruction IR consulted, status post right PCN tube placement Plan to place a suprapubic catheter /Atrial flutter continue prehospital therapy, hold anticoagulation for now. resume postoperatively as per IR. /DVT prophylaxis SCD to BLE while in bed. History Interval history: Patient seen and examined. Hospitalist Physical - Physical exam Narrative exam: Physical exam: GENERAL: well-developed and well-nourished male lying on bed appeared to be in no discomfort. HEENT: Normocephalic. Atraumatic. No conjunctival congestion or icterus. Patient has moist mucous membranes. NECK: Supple. Trachea midline. CHEST/LUNGS: Clear to auscultated bilaterally, breathing nonlabored. No wheezes crackles or rhonchi. HEART/CARDIOVASCULAR: Regular in rate and rhythm. S1 and S2 positive. ABDOMEN: Abdomen is soft, nontender. Patient has normal bowel sounds. Right PCN tube intact draining clear urine SKIN: There is no rash. Warm and dry. NEURO: No focal motor deficit. Follows command. MUSCULOSKELETAL: No joint effusion or tenderness. EXTRIMITY: No edema, no cyanosis or clubbing. PSYCH: Cooperative - Constitutional Vitals: Temp Pulse Resp BP Pulse Ox 98.2 F 71 20 139/90 96 04/25/18 08:12 04/25/18 00:37 04/25/18 12:26 04/25/18 08:12 04/25/18 00:37 General appearance: Present: no acute distress Results - Labs CBC & Chem 7: 04/23/18 05:44 04/23/18 05:44 Labs: Laboratory Last Values WBC 4.7 K/mm3 (4.5-11.0) 04/23/18 05:44 RBC 2.98 M/mm3 (3.65-5.03) L 04/23/18 05:44 Hgb 9.0 gm/dl (11.8-15.2) L 04/23/18 05:44 Hct 27.0 % (35.5-45.6) L 04/23/18 05:44 MCV 91 fl (84-94) 04/23/18 05:44 MCH 30 pg (28-32) 04/23/18 05:44 MCHC 34 % (32-34) 04/23/18 05:44 RDW 14.3 % (13.2-15.2) 04/23/18 05:44 Plt Count 168 K/mm3 (140-440) 04/23/18 05:44 Lymph % (Auto) 12.6 % (13.4-35.0) L 04/23/18 05:44 [place] % (Auto) 8.9 % (0.0-7.3) H 04/23/18 05:44 Eos % (Auto) 1.9 % (0.0-4.3) 04/23/18 05:44 Baso % (Auto) 0.5 % (0.0-1.8) 04/23/18 05:44 Lymph # 0.6 K/mm3 (1.2-5.4) L 04/23/18 05:44 [place] # 0.4 K/mm3 (0.0-0.8) 04/23/18 05:44 Eos # 0.1 K/mm3 (0.0-0.4) 04/23/18 05:44 Baso # 0.0 K/mm3 (0.0-0.1) 04/23/18 05:44 Seg Neutrophils % 76.1 % (40.0-70.0) H 04/23/18 05:44 Seg Neutrophils # 3.6 K/mm3 (1.8-7.7) 04/23/18 05:44 PT 18.2 Sec. (12.2-14.9) H 04/20/18 06:55 INR 1.41 (0.87-1.13) H 04/20/18 06:55 APTT 32.9 Sec. (24.2-36.6) 04/20/18 06:55 Sodium 139 mmol/L (137-145) 04/23/18 05:44 Potassium 3.9 mmol/L (3.6-5.0) 04/23/18 05:44 Chloride 101.8 mmol/L (98-107) 04/23/18 05:44 Carbon Dioxide 26 mmol/L (22-30) 04/23/18 05:44 Anion Gap 15 mmol/L 04/23/18 05:44 BUN 7 mg/dL (9-20) L 04/23/18 05:44 Creatinine 0.7 mg/dL (0.8-1.5) L 04/23/18 05:44 Estimated GFR > 60 ml/min 04/23/18 05:44 BUN/Creatinine Ratio 10 % 04/23/18 05:44 Glucose 95 mg/dL (75-100) 04/23/18 05:44 POC Glucose 81 (70-105) 04/23/18 06:05 Calcium 8.3 mg/dL (8.4-10.2) L 04/23/18 05:44 Total Bilirubin 0.50 mg/dL (0.1-1.2) 04/23/18 05:44 Direct Bilirubin < 0.2 mg/dL (0-0.2) 04/23/18 05:44 AST 17 units/L (5-40) 04/23/18 05:44 ALT 11 units/L (7-56) 04/23/18 05:44 Alkaline Phosphatase 92 units/L (35-129) 04/23/18 05:44 Total Protein 5.4 g/dL (6.3-8.2) L 04/23/18 05:44 Albumin 2.6 g/dL (3.9-5) L 04/23/18 05:44 Albumin/Globulin Ratio 0.9 % 04/23/18 05:44 Prealbumin 0.044 g/L (0.200-0.400) L 04/23/18 05:44
--- NOTE | 2018-04-25 15:41 | Discharge Summary ---
Providers - Providers Date of Admission: 04/20/18 10:06 Date of discharge: 04/25/18 Attending physician: NICK ESCOBAR 04/20/18 10:06 Consult to Physician [CONS] Routine Comment: Consulting Provider: ASHWINI FRAZIER Physician Instructions: Reason For Exam: obstruction, urinary 04/20/18 11:28 Consult to Physician [CONS] Routine Comment: Consulting Provider: GLORY RENEE Physician Instructions: Reason For Exam: collecting system clot, suprapubic cath Primary care physician: VENANCIO MCKINNON Hospitalization Condition: Stable Hospital course: Patient is a 78 YO Male with CAD S/P Stent Placement, Atrial Flutter on Therapeutic Anticoagulation (Eliquis), HTN, PVD, AAA, advance Prostate Cancer S/P Seed implant, Urinary Obstruction admitted directly at the request of Dr. Frazier. He was placed on right PCN yesterday, urology consulted, planned for SP catheter next week. * Urine output improving. H&H relatively stable. Will continue to monitor hemoglobin. Symptomatically improving. * Need to Hold eliquis for 2 weeks (05/03/18). / Prostate cancer, stage IV Continue hormone therapy, outpatient oncology F/U, supportive care. / Urinary obstruction IR consulted, status post right PCN tube placement Plan to place a suprapubic catheter /Atrial flutter continue prehospital therapy, hold anticoagulation for now. resume postoperatively as per IR. /DVT prophylaxis SCD to BLE while in bed. Disposition: DC-01 TO HOME OR SELFCARE Time spent for discharge: 35 minutes Core Measure Documentation - Palliative Care Palliative Care/ Comfort Measures: Not Applicable - Core Measures Any of the following diagnoses?: none - VTE Discharge Requirements Deep Vein Thrombosis/Pulmonary Embolism Present on Admission: No Has pt received <5 days of overlap therapy or INR<2.0: No Anticoagulant overlap therapy prescribed at discharge: No Contraindication No Overlap Therapy order at DC: Not Indicated Exam - Physical Exam Narrative exam: Physical exam: GENERAL: well-developed and well-nourished male lying on bed appeared to be in no discomfort. HEENT: Normocephalic. Atraumatic. No conjunctival congestion or icterus. Patient has moist mucous membranes. NECK: Supple. Trachea midline. CHEST/LUNGS: Clear to auscultated bilaterally, breathing nonlabored. No wheezes crackles or rhonchi. HEART/CARDIOVASCULAR: Regular in rate and rhythm. S1 and S2 positive. ABDOMEN: Abdomen is soft, nontender. Patient has normal bowel sounds. Right PCN tube intact draining clear urine SKIN: There is no rash. Warm and dry. NEURO: No focal motor deficit. Follows command. MUSCULOSKELETAL: No joint effusion or tenderness. EXTRIMITY: No edema, no cyanosis or clubbing. PSYCH: Cooperative - Constitutional Vitals: Temp Pulse Resp BP Pulse Ox 98.2 F 71 20 139/90 96 04/25/18 08:12 04/25/18 00:37 04/25/18 12:26 04/25/18 08:12 04/25/18 00:37 Plan Activity: other (no strenous activity unless cleared by Urology) Diet: low salt Follow up with: VENANCIO MCKINNON MD [Primary Care Provider] - 7 Days Prescriptions: oxyCODONE /ACETAMINOPHEN [Percocet 5/325 mg] 1 tab PO Q6H PRN #20 tablet PRN Reason: Pain , Severe (7-10) Polyethylene Glycol 3350 [Miralax 3350] 17 gm PO QDAY PRN #15 powd.pack PRN Reason: Constipation
== END 2018-04-25 16:50 | disposition home or self-care (01) | DRG 723 ==
LOC: CATHLABREC 06:13 → 4A 10:06
PROVIDERS: ADMIT Internal Medicine; ATTEND Internal Medicine
PROC: BT111ZZ Fluoroscopy of Right Kidney using Low Osmolar Contrast (ICD-10-PCS; 2018-04-20)
PROC: 0T9330Z Drainage of Right Kidney Pelvis with Drainage Device, Percutaneous Approach (ICD-10-PCS; 2018-04-20)
PROC: 0T9B80Z Drainage of Bladder with Drainage Device, Via Natural or Artificial Opening Endoscopic (ICD-10-PCS; principal; 2018-04-25)
DX: C61 Malignant neoplasm of prostate (principal); I48.92 Unspecified atrial flutter; N13.30 Unspecified hydronephrosis; N13.4 Hydroureter; N13.9 Obstructive and reflux uropathy, unspecified; I48.91 Unspecified atrial fibrillation; I25.10 Atherosclerotic heart disease of native coronary artery without angina pectoris; Z95.5 Presence of coronary angioplasty implant and graft; Z79.01 Long term (current) use of anticoagulants; Z82.49 Family history of ischemic heart disease and other diseases of the circulatory system; Z98.49 Cataract extraction status, unspecified eye; Z95.2 Presence of prosthetic heart valve; Z79.82 Long term (current) use of aspirin; Z79.899 Other long term (current) drug therapy
CPT/HCPCS: 36415; 50432; 80048; 80076; 82962; 84134; 85014; 85018; 85025; 85027; 85610; 85730; G0378; A9270-GY; C1729; C1751; C1769; J0690; J1956; J2250; J2704; J3010; J7040; J7120; Q9967

== ENCOUNTER 2018-08-02 14:12 | Emergency (ER) | payer MEDICARE, OTHER ==
--- NOTE | 2018-08-02 14:55 | Emergency Department Report ---
Blank Doc - Documentation Documentation: pt presents to the ED with c/o prostate cancer 2002 pt had surgery, no chemo or XRT currently states that he has had prostate swelling began having incontinence that began 3 weeks ago states he has been having diarrhea Dr. Garcia, urology no n/v no fever no abd pain has pain in the prostate no hemotachezia, no melena PMHx afib, HLD taken off eliquis a week ago
[2018-08-02 16:03] LABS: Hematocrit 28.1 % (35.5-45.6); Hemoglobin 9.1 gm/dl (11.8-15.2); Mean Corpuscular HGB Conc 32 % (32-34); Mean Corpuscular Volume 84 fl (84-94); Platelet Count 303 K/mm3 (140-440); Red Blood Count 3.33 M/mm3 (3.65-5.03); Red Cell Distribution Width 18.9 % (13.2-15.2)
[2018-08-02 16:16] LABS: Alanine Aminotransferase 14 units/L (7-56); Albumin 2.6 g/dL (3.9-5); BUN/Creatinine Ratio 28; Blood Urea Nitrogen 22 mg/dL (9-20); Calcium 8.7 mg/dL (8.4-10.2); Hemolysis Index 13
[2018-08-02 16:28] LABS: Basophils % (Manual) 0 % (0.0-1.8); Eosinophils % (Manual) 0 % (0.0-4.3); Total Cells Counted 100
[2018-08-02 16:32] LABS: Anisocytosis 1+; Burr Cells Few
--- NOTE | 2018-08-02 17:09 | Emergency Department Report ---
ED N/V/D HPI - General Chief complaint: Nausea/Vomiting/Diarrhea Stated complaint: DIARRHEA/RECTAL PAIN Time Seen by Provider: 08/02/18 14:49 Source: EMS Mode of arrival: Stretcher Limitations: No Limitations - History of Present Illness Initial comments: 78-year-old male with history of enlarged prostate presents to ED with complaint of watery diarrhea and rectal pain. Patient states 4 months ago he began to develop a mass on the inner aspect of his rectum. Patient states over the last 4 months, since the mass has enlarged, he has had watery diarrhea and bowel incontinence. Patient currently taking Lortab for the pain, which was given to him by his urologist, Dr. Garcia. However, patient reports over the last 2 days, whenever he does have a watery stool, the rectal pain is worse than what it has been. Patient is scheduled to undergo a biopsy and surgery in [address] Lunsford, general surgeon, will also be involved in this surgery as well. Patient presents today for pain control. Denies abdominal pain, vomiting. MD complaint: diarrhea, other (rectal pain) -: month(s) (4) Description of Diarrhea: water Associated Abdominal Pain: No Severity: severe Quality: sharp Consistency: intermittent Improves with: none Worsens with: bowel movement Associated Symptoms: denies: fever/chills, nausea/vomiting - Related Data Home Medications Medication Instructions Recorded Confirmed Last Taken AtorvaSTATin [Lipitor] 40 mg PO DAILY 05/13/15 04/20/18 04/18/18 Leuprolide Acetate [Eligard] 45 mg SQ [id number] 08/03/16 04/20/18 03/05/18 Apixaban [Eliquis] 5 mg PO BID 09/04/17 04/20/18 04/18/18 Metoprolol [Lopressor TAB] 25 mg PO DAILY 09/04/17 04/20/18 04/18/18 Dronedarone HCl [Multaq] 400 mg PO BID 09/20/17 04/20/18 04/18/18 Apalutamide [Erleada] 4 tab PO QDAY 04/20/18 04/20/18 04/18/18 Aspirin [Aspirin EC] 81 mg PO QDAY 04/20/18 04/20/18 04/18/18 Losartan Potassium 100 mg PO QDAY 0204/20/18 04/18/18 Previous Rx's Medication Instructions Recorded Last Taken Type Acetaminophen [Acetaminophen TAB] 650 mg PO Q4H PRN #10 tablet 04/25/18 Unknown Rx Famotidine [Pepcid] 20 mg PO BID #15 tablet 04/25/18 Unknown Rx Polyethylene Glycol 3350 [Miralax 17 gm PO QDAY PRN #15 powd.pack 04/25/18 Unknown Rx 3350] oxyCODONE /ACETAMINOPHEN [Percocet 1 tab PO Q6H PRN #20 tablet 04/25/18 Unknown Rx 5/325 mg] Allergies Allergy/AdvReac Type Severity Reaction Status Date / Time No Known Allergies Allergy Verified 08/03/16 18:14 ED Review of Systems ROS: Stated complaint: DIARRHEA/RECTAL PAIN Other details as noted in HPI Comment: All other systems reviewed and negative Constitutional: denies: chills, fever Gastrointestinal: diarrhea, other (reports rectal pain). denies: abdominal pain, nausea, vomiting ED Past Medical Hx - Past Medical History Previous Medical History?: Yes Hx Hypertension: Yes Hx Heart Attack/AMI: No Hx Deep Vein Thrombosis: No Hx GERD: No Hx Liver Disease: No Hx Renal Disease: Yes (hydronephrosis s/p nephrostomy) Hx Seizures: No Hx Asthma: No Hx HIV: No Additional medical history: hyperlipidema, prostate cancer - Surgical History Past Surgical History?: Yes Hx Coronary Stent: Yes (X 1 2013) Hx Open Heart Surgery: Yes (AORTIC VALVE REPLACEMENT 2012) Hx Pacemaker: No Additional Surgical History: valve replacement. prostate surgery - Social History Smoking Status: Never Smoker Substance Use Type: None - Medications Home Medications: Home Medications Medication Instructions Recorded Confirmed Last Taken Type AtorvaSTATin [Lipitor] 40 mg PO DAILY 05/13/15 04/20/18 04/18/18 History Leuprolide Acetate [Eligard] 45 mg SQ [id number] 08/03/16 04/20/18 03/05/18 History Apixaban [Eliquis] 5 mg PO BID 09/04/17 04/20/18 04/18/18 History Metoprolol [Lopressor TAB] 25 mg PO DAILY 09/04/17 04/20/18 04/18/18 History Dronedarone HCl [Multaq] 400 mg PO BID 09/20/17 04/20/18 04/18/18 History Apalutamide [Erleada] 4 tab PO QDAY 04/20/18 04/20/18 04/18/18 History Aspirin [Aspirin EC] 81 mg PO QDAY 04/20/18 04/20/18 04/18/18 History Losartan Potassium 100 mg PO QDAY 04/20/18 04/20/18 04/18/18 History Acetaminophen [Acetaminophen TAB] 650 mg PO Q4H PRN #10 tablet 04/25/18 Unknown Rx Famotidine [Pepcid] 20 mg PO BID #15 tablet 04/25/18 Unknown Rx Polyethylene Glycol 3350 [Miralax 17 gm PO QDAY PRN #15 powd.pack 04/25/18 Unknown Rx 3350] oxyCODONE /ACETAMINOPHEN [Percocet 1 tab PO Q6H PRN #20 tablet 04/25/18 Unknown Rx 5/325 mg] ED Physical Exam - General Limitations: No Limitations General appearance: alert, in no apparent distress - Head Head exam: Present: atraumatic, normocephalic - Eye Eye exam: Present: normal appearance - ENT ENT exam: Present: mucous membranes moist - Neck Neck exam: Present: normal inspection - Respiratory Respiratory exam: Present: normal lung sounds bilaterally. Absent: respiratory distress - Cardiovascular Cardiovascular Exam: Present: regular rate, normal rhythm - GI/Abdominal GI/Abdominal exam: Present: soft. Absent: distended, tenderness - Rectal Rectal exam: Present: mass (internal, tender, stool is brown) - Extremities Exam Extremities exam: Present: normal inspection - Neurological Exam Neurological exam: Present: alert, oriented X3 - Psychiatric Psychiatric exam: Present: normal affect, normal mood - Skin Skin exam: Present: warm, dry, intact, normal color ED Course Vital Signs 08/02/18 08/02/18 08/02/18 14:50 17:56 17:57 Temperature 97.6 F 98.1 F Pulse Rate 96 H 78 Respiratory 18 20 20 Rate Blood Pressure 118/72 Blood Pressure 122/74 [Left] O2 Sat by Pulse 98 100 100 Oximetry - Consultations Consultation #1: 08/02/18 17:11 Spoke w/ Dr Garcia. Will move biopsy to August 07. ED Medical Decision Making - Lab Data Result diagrams: 08/02/18 15:38 08/02/18 15:38 - Medical Decision Making 78-year-old male with ongoing watery diarrhea and rectal pain due to rectal mass. Patient is already taking Lortab for pain. Explained to patient that not be able to prescribe anything in addition to this. Spoke with Dr. Garcia and relayed to pt that his biopsy will be moved up to next Monday instead of next month. Pt already has rx for GoLytely prep. Instructed him to take on Monday. Pt is to f/u with Dr Garcia. - Differential Diagnosis rectal mass Critical care attestation.: If time is entered above; I have spent that time in minutes in the direct care of this critically ill patient, excluding procedure time. ED Disposition Clinical Impression: Proctodynia Disposition: - TO HOME OR SELFCARE Is pt being admited?: No Condition: Stable Additional Instructions: Remember to take your GoLytely bowel prep on Monday, in preparation for your procedure on Monday. Referrals: GLORY GARCIA MD [Staff Physician] - 08/07/18 Time of Disposition: 17:14
[2018-08-02 17:57] VITALS: BP 122/74
== END 2018-08-02 18:00 | disposition home or self-care (01) ==
LOC: ED 14:12
DX: K62.89 Other specified diseases of anus and rectum (principal); I10 Essential (primary) hypertension; Z95.1 Presence of aortocoronary bypass graft; Z79.82 Long term (current) use of aspirin; Z79.899 Other long term (current) drug therapy
CPT/HCPCS: 36415; 80053; 83735; 84100; 85007; 85025; 99283

== ENCOUNTER 2018-08-07 09:15 | Inpatient (IN) | payer MEDICARE, OTHER ==
[~2018-08-07 09:15] MED LIST changes: -ANCEF/STERILE WATER 2 GM/20 ML 2 GM/20 ML SYRINGE IV NR; +FLEET PR ONE; -NACL 0.9% 1000 ML 1,000 ML IV SCH
[2018-08-07] MEDS ORDERED: DILAUDID IV PRN (09:54)
--- NOTE | 2018-08-07 09:59 | Anesthesia Day of Surgery ---
Anesthesia Day of Surgery - Day of Surgery Patient Examined: Yes Patient H&P Reviewed: Yes Patient is NPO: Yes Beta Blockers: Yes Cardiac Clearance: Yes
--- NOTE | 2018-08-07 09:59 | Anesthesia Consultation ---
Anesthesia Consult and Med Hx Date of service: 08/07/18 - Airway Anesthetic Teeth Evaluation: Good ROM Head & Neck: Adequate Mental/Hyoid Distance: Adequate Mallampati Class: Class II Intubation Access Assessment: Probably Good - Pulmonary Exam CTA: Yes - Cardiac Exam Cardiac Exam: RRR - Pre-Operative Health Status ASA Pre-Surgery Classification: ASA3 Proposed Anesthetic Plan: General - Pulmonary Hx Smoking: No Hx Asthma: No SOB: Yes Hx Sleep Apnea: No (SIGIFREDO PRE SCREEN HIGH RISK) - Cardiovascular System Hx Hypertension: Yes Hx Coronary Artery Disease: Yes Hx Heart Attack/AMI: No Hx Angina: No Hx Percutaneous Transluminal Coronary Angioplasty (PTCA): Yes (stent x 2013) Hx Cardia Arrhythmia: Yes (A-fib/flutter; eliquis held x2-3wks) Hx Pacemaker: No Hx Valvular Heart Disease: Yes (s/p AVR/MVR) Hx Heart Murmur: Yes Hx Peripheral Vascular Disease: Yes (LEGS) - Central Nervous System Hx Seizures: No CVA: No Hx Back Pain: (NECK PAIN) Hx Psychiatric Problems: No - Gastrointestinal Hx Ulcer: No Hx Gastroesophageal Reflux Disease: No - Endocrine Hx Renal Disease: No Hx Liver Disease: No Hx Insulin Dependent Diabetes: No Hx Non-Insulin Dependent Diabetes: No Hx Thyroid Disease: No - Hematic Hx Anemia: Yes - Other Systems Hx Substance Use: No Hx Cancer: Yes (prostate; rectal mass) Hx Obesity: No - Additional Comments Anesthesia Medical History Comments: No hx anesthetic complications. Cardiology clearance on chart.
[2018-08-07 10:52] LABS: Hematocrit 28.7 % (35.5-45.6); Hemoglobin 9.2 gm/dl (11.8-15.2); Mean Corpuscular HGB Conc 32 % (32-34); Mean Corpuscular Volume 85 fl (84-94); Platelet Count 277 K/mm3 (140-440); Red Blood Count 3.37 M/mm3 (3.65-5.03); Red Cell Distribution Width 18.6 % (13.2-15.2)
[2018-08-07] MEDS ORDERED: LOPRESSOR PO SCH (11:00)
[2018-08-07] MEDS ORDERED: LOPRESSOR PO NR (11:00)
[2018-08-07 11:10] LABS: BUN/Creatinine Ratio 27; Blood Urea Nitrogen 16 mg/dL (9-20); Calcium 7.8 mg/dL (8.4-10.2); Hemolysis Index 6
[2018-08-07 11:12] LABS: INR 1.3 (0.87-1.13)
[2018-08-07] MEDS ORDERED: METHYLENE BLUE ONE (11:12)
[2018-08-07] MEDS ORDERED: MARCAINE 0.5% INFILTRATI ONE ×3 (11:12→14:17)
[2018-08-07] MEDS ORDERED: Vasostrict ONE (11:13)
[2018-08-07] MEDS ORDERED: NEOSPORIN GU IR ONE (11:13)
[2018-08-07] MEDS: LACTATED RINGERS 1,000 ML IV SCH ×2 (11:40→23:11)
[2018-08-07] MEDS ORDERED: ZOFRAN ONE (11:51)
[2018-08-07] MEDS ORDERED: DILAUDID ONE (11:51)
[2018-08-07] MEDS ORDERED: AMIDATE IV ONE (11:51)
[2018-08-07] MEDS ORDERED: ZEMURON IV ONE (11:51)
[2018-08-07] MEDS ORDERED: DECADRON ONE (11:51)
[2018-08-07] MEDS ORDERED: XYLOCAINE MPF 2% ONE (11:51)
[2018-08-07] MEDS ORDERED: FLEET PR ONE (12:00)
[2018-08-07] MEDS ORDERED: ANCEF/STERILE WATER 2 GM/20 ML IV NR (13:00)
[2018-08-07] MEDS ORDERED: WATER FOR IRRIG STERILE IR ONE ×4 (13:06)
--- NOTE | 2018-08-07 15:12 | Operative Report ---
PREOPERATIVE DIAGNOSIS: Extensive pelvic cancer spindle cells, exact type undetermined plus multiple biopsies. POSTOPERATIVE DIAGNOSIS: Extensive pelvic cancer spindle cells, exact type undetermined plus multiple biopsies. Pending final stains. PROCEDURE: Flexible cystoscopy, bimanual exam and large biopsy of perineal mass. SURGEON: Lake Garcia MD ANESTHESIA: General. FINDINGS: This is a gentleman with expanding perineal mass, was seen on MRI. Biopsies done twice this year could not reveal a definitive diagnosis except for some spindle cells. He now presents for more formal biopsy and possible colostomy because of rectal invasion. DESCRIPTION OF PROCEDURE: The patient was brought to the operating room and placed on the operating table. Following induction of anesthesia, placed in lithotomy position, prepped and draped in usual sterile fashion. A midline perineal incision was made, carried right down to this mass, which measured at least 9 x 6 cm. It was solid. It was fleshy and rock hard. Once we got down to the mass, retractor was placed and multiple wedge biopsies were obtained. Frozen section showed once again spindle cells. Flexible cystoscopy showed tumor and debris throughout the bladder. Posterior wall was spared. A 24 F suprapubic tube was replaced. The patient tolerated the procedure well. He is in guarded condition. He will be prepared for possible colostomy. Bimanual exam showed a mass extending into the rectum much more on the left side. He was prepared for general surgical procedure and sigmoidoscopy per Dr. Lunsford. JOB# [id number] MUMTAZ/LAURA
--- NOTE | 2018-08-07 16:03 | Post Operative Note ---
Date of procedure: 08/07/18 (dictation: [id number]) Pre-op diagnosis: Pelvic Mass Post-op diagnosis: same Findings: Fistula between rectum and bladder. Ill defined mass in low pelvis. Rest of abdomen was normal. Tumor like mass in anorectal region that extends 10cm from anal verge. Procedure: rigid proctoscopy lap colostomy creation IVF 1100cc EBL<25cc UOP 60cc Anesthesia: GETA Surgeon: RICK NOGUERA Estimated blood loss: minimal Pathology: none Condition: stable Disposition: PACU
[2018-08-07] MEDS ORDERED: SODIUM CHLORIDE FLUSH SYRINGE 10 ML IV PRN (16:19)
[2018-08-07] MEDS ORDERED: PROVENTIL IH PRN (16:19)
[2018-08-07] MEDS ORDERED: MORPHINE IV PRN (16:19)
[2018-08-07] MEDS ORDERED: ZOFRAN IV PRN (16:19)
[2018-08-07] MEDS ORDERED: TYLENOL PO PRN (16:19)
--- NOTE | 2018-08-07 16:19 | History and Physical Report ---
History of Present Illness Chief complaint: Im tired History of present illness: 78 YO Male with CAD S/P Stent Placement, Valve Replacement, Atrial Flutter on Therapeutic Anticoagulation (Eliquis), HTN, PVD, AAA, Prostate Cancer S/P Seed implant, Urinary Obstruction admitted directly at the request of Dr. Lunsford s/p colostomy placement for colovesical fistula as well as anal mass suspicious for malignancy. Pt seen and evaluated upon arrival to his room. Pt is resting comfortably at time of exam, and reports that his pain is controlled. Pt denies fever, chills, CP, Palpitations, NVD, Trauma, BRBPR, unintentional weight loss, or night sweats. No reported nursing events. Pt found to have evidence of SIRS on routine laboratory exams, as well as Acidosis and initiated on empric antibiotic therapy. Prior admission on 04/20/18 reviewed. All listed medication reconciled. Past History Past Medical History: atrial fib, CAD, cancer, hypertension, PVD Past Surgical History: abd. aortic aneurysm repair, valve replacement, Other (prostate surgery) Social history: . denies: smoking, alcohol abuse, prescription drug abuse Family history: hypertension Medications and Allergies Allergies Allergy/AdvReac Type Severity Reaction Status Date / Time No Known Allergies Allergy Verified 08/03/16 18:14 Home Medications Medication Instructions Recorded Confirmed Last Taken Type AtorvaSTATin [Lipitor] 40 mg PO DAILY 05/13/15 08/03/18 04/18/18 History Leuprolide Acetate [Eligard] 45 mg SQ [id number] 08/03/16 08/07/18 05/28/18 09:00 History Apixaban [Eliquis] 5 mg PO BID 09/04/17 08/07/18 07/17/18 09:00 History Metoprolol [Lopressor TAB] 25 mg PO DAILY 09/04/17 08/07/18 08/07/18 11:10 History Dronedarone HCl [Multaq] 400 mg PO BID 09/20/17 08/03/18 04/18/18 History Apalutamide [Erleada] 4 tab PO QDAY 04/20/18 08/03/18 04/18/18 History Aspirin [Aspirin EC] 81 mg PO QDAY 04/20/18 08/07/18 05/28/18 09:00 History Losartan Potassium 100 mg PO QDAY 04/20/18 08/03/18 04/18/18 History Acetaminophen [Acetaminophen TAB] 650 mg PO Q4H PRN #10 tablet 04/25/18 08/03/18 Unknown Rx Famotidine [Pepcid] 20 mg PO BID #15 tablet 04/25/18 08/03/18 Unknown Rx Polyethylene Glycol 3350 [Miralax 17 gm PO QDAY PRN #15 powd.pack 04/25/18 08/03/18 Unknown Rx 3350] oxyCODONE /ACETAMINOPHEN [Percocet 1 tab PO Q6H PRN #20 tablet 04/25/18 08/07/18 08/02/18 09:00 Rx 5/325 mg] Active Meds: Active Medications Cefazolin Sodium (Ancef/Sterile Water 2 Gm/20 Ml) 2 gm IV PREOP NR Stop: 08/07/18 23:59 Hydromorphone HCl (Dilaudid) 0.5 mg IV Q10MIN PRN PRN Reason: Pain , Severe (7-10) Stop: 08/07/18 20:00 Lactated Ringer's (Lactated Ringers) 1,000 mls @ 100 mls/hr IV DIRECT BELIA Last Admin: 08/07/18 11:40 Dose: 100 mls/hr Documented by: Review of Systems Constitutional: fatigue, no weight loss, no weight gain, no fever, no chills Ears, nose, mouth and throat: no ear pain, no ear discharge, no tinnitis, no decreased hearing, no nose pain Cardiovascular: no chest pain, no orthopnea, no palpitations, no rapid/irregular heart beat Respiratory: no cough, no cough with sputum, no excessive sputum, no shortness of breath Genitourinary Male: no hematuria, no discharge, no urinary hesitancy, no incontinence Rectal: no pain, no incontinence Musculoskeletal: no neck pain, no shooting arm pain, no low back pain, no shooting leg pain Integumentary: no rash, no pruritis, no redness, no sores Neurological: no head injury, no weakness, no parathesias, no numbness, no tingling, no seizures Psychiatric: no anxiety, no change in sleep habits, no insomnia, no change in appetite Endocrine: no cold intolerance, no heat intolerance, no polydipsia, no polyuria, no nocturia Hematologic/Lymphatic: no easy bruising, no easy bleeding Allergic/Immunologic: no urticaria, no persistent infections Exam - Constitutional Vitals: Temp Pulse Resp BP Pulse Ox 97.5 F L 100 H 20 107/74 97 08/07/18 11:30 08/07/18 11:30 08/07/18 11:30 08/07/18 11:30 08/07/18 11:30 General appearance: Present: no acute distress, well-nourished - EENT Eyes: Present: PERRL ENT: hearing intact, clear oral mucosa - Neck Neck: Present: supple, normal ROM - Respiratory Respiratory effort: normal Respiratory: bilateral: CTA - Cardiovascular Rhythm: irregularly irregular Heart Sounds: Present: S1 & S2. Absent: rub, click - Extremities Extremities: pulses symmetrical, No edema Peripheral Pulses: within normal limits - Abdominal General gastrointestinal: Present: soft, non-tender, non-distended, normal bowel sounds Male genitourinary: Present: normal - Integumentary Integumentary: Present: clear, warm, dry - Musculoskeletal Musculoskeletal: gait normal, strength equal bilaterally - Psychiatric Psychiatric: appropriate mood/affect, intact judgment & insight - Neurologic Neurologic: CNII-XII intact, moves all extremities Results - Labs CBC & Chem 7: 08/08/18 04:50 08/08/18 04:50 Labs: Abnormal lab results 08/07/18 08/07/18 08/07/18 Range/Units 10:30 10:30 10:30 WBC 21.1 H (4.5-11.0) K/mm3 RBC 3.37 L (3.65-5.03) M/mm3 Hgb 9.2 L (11.8-15.2) gm/dl Hct 28.7 L (35.5-45.6) % MCH 27 L (28-32) pg RDW 18.6 H (13.2-15.2) % PT 17.0 H (12.2-14.9) Sec. INR 1.30 H (0.87-1.13) Sodium 128 L (137-145) mmol/L Chloride 93.0 L (98-107) mmol/L Carbon Dioxide 20 L (22-30) mmol/L Creatinine 0.6 L (0.8-1.5) mg/dL Calcium 7.8 L (8.4-10.2) mg/dL Assessment and Plan - Patient Problems (1) SIRS (systemic inflammatory response syndrome) Current Visit: Yes Status: Acute Plan to address problem: Empiric antibiotic therapy, CBC, CMP, IVF resuscitation therapy, (2) Acidosis Current Visit: Yes Status: Acute Plan to address problem: IVF resuscitation therapy, repeat bmp (3) Atrial flutter Current Visit: No Status: Acute Qualifiers: Atrial flutter type: unspecified Qualified Code(s): I48.92 - Unspecified atrial flutter Plan to address problem: supportive care, rate control, hold therapeutic anticoagulation overnight as per surgical team. (4) DVT prophylaxis Current Visit: No Status: Acute Plan to address problem: SCD to BLE while in bed,
[2018-08-07] MEDS ORDERED: VANCOMYCIN PHARMACY TO DOSE IV SCH (17:00)
[2018-08-07] MEDS ORDERED: NACL 0.9% 1000 ML 2,500 ML IV SCH (17:00)
[2018-08-07] MEDS ORDERED: VANCOMYCIN 1,500 MG in NACL 0.9% 500 ML 500 ML IV ONE (17:00)
[2018-08-07] MEDS: FLAGYL 500 MG/100 ML 500 MG/100 ML BAG IV SCH (21:50)
[2018-08-07] MEDS: PERCOCET 5/325 PO PRN (21:50)
[2018-08-07] MEDS: SODIUM CHLORIDE FLUSH SYRINGE 10 ML IV SCH (23:05)
[2018-08-07] MEDS: MAXIPIME/NS 2 GM/100 ML 2 GM/100 ML BAG IV SCH (23:05)
[2018-08-08] MEDS: FLAGYL 500 MG/100 ML 500 MG/100 ML BAG IV SCH ×3 (05:11→22:19)
[2018-08-08 05:15] LABS: Hematocrit 28.2 % (35.5-45.6); Hemoglobin 9.1 gm/dl (11.8-15.2); Mean Corpuscular HGB Conc 32 % (32-34); Mean Corpuscular Volume 85 fl (84-94); Platelet Count 244 K/mm3 (140-440); Red Blood Count 3.31 M/mm3 (3.65-5.03); Red Cell Distribution Width 18.8 % (13.2-15.2)
[2018-08-08 05:38] LABS: Alanine Aminotransferase 17 units/L (7-56); Albumin 1.8 g/dL (3.9-5); BUN/Creatinine Ratio 29; Blood Urea Nitrogen 23 mg/dL (9-20); Calcium 7.6 mg/dL (8.4-10.2); Hemolysis Index 9
[2018-08-08] MEDS: MAXIPIME/NS 2 GM/100 ML 2 GM/100 ML BAG IV SCH ×3 (05:54→22:19)
[2018-08-08] MEDS: VANCOMYCIN/NS 1 GM/250 ML 1 GM/250 ML BAG IV SCH ×2 (06:36→20:51)
--- NOTE | 2018-08-08 08:17 | Progress Note ---
Assessment and Plan - Patient Problems (1) Partial intestinal obstruction Current Visit: Yes Status: Acute Qualifiers: Intestinal obstruction type: other intestinal obstruction Qualified Code(s): K56.690 - Other partial intestinal obstruction Plan to address problem: Pt stable. s/p lap colostomy for partial obstruction of rectum from pelvic malignancy - 08/07 - POD#1. Pt appears to be doing well. Mild hyponatremia and hypochloremia noted on labs. WBC is probably reactive. Rec: 1) ostomy teaching today. 2) sponge baths for 1 week 3) RTC 1 week 4) May d/c from my standpoint once ostomy teaching done and cleared by medicine. 5) diet as tolerated 6) ambulate Please call with questions. Subjective Date of service: 08/08/18 Patient Reports: Positive: no new complaints, feels better, tolerating liquids well, bowel movement, other (minimal pain. Brownish liquid output from ostomy. ). Negative: nausea, vomiting Objective Vital Signs - 12hr 08/08/18 08/08/18 08/08/18 01:43 05:07 07:03 Temperature 98.2 F 98.2 F 98.8 F Pulse Rate 80 81 77 Respiratory 17 17 20 Rate Blood Pressure 110/77 119/81 114/83 O2 Sat by Pulse 100 98 99 Oximetry - General physical appearance no distress, no pain, other (looks well) - Respiratory normal expansion, normal respiratory effort - Abdomen soft, not tender, not distended, surgical scars (C/D/I), other (ostomy viable.) - Integumentary no rash, no growths, no abnormal pigmentation - Psychiatric oriented to time, oriented to person, oriented to place, speech is normal, memory intact - Labs 08/08/18 04:50 08/08/18 04:50 Diabetes panel 08/07/18 08/08/18 Range/Units 10:30 04:50 Sodium 128 L 129 L (137-145) mmol/L Potassium 3.9 3.9 (3.6-5.0) mmol/L Chloride 93.0 L 93.4 L (98-107) mmol/L Carbon Dioxide 20 L 23 (22-30) mmol/L BUN 16 23 H (9-20) mg/dL Creatinine 0.6 L 0.8 (0.8-1.5) mg/dL Glucose 88 167 H (75-100) mg/dL Calcium 7.8 L 7.6 L (8.4-10.2) mg/dL AST 37 (5-40) units/L ALT 17 (7-56) units/L Alkaline Phosphatase 140 H (35-129) units/L Total Protein 4.9 L (6.3-8.2) g/dL Albumin 1.8 L (3.9-5) g/dL Calcium panel 08/07/18 08/08/18 Range/Units 10:30 04:50 Calcium 7.8 L 7.6 L (8.4-10.2) mg/dL Albumin 1.8 L (3.9-5) g/dL Pituitary panel 08/07/18 08/08/18 Range/Units 10:30 04:50 Sodium 128 L 129 L (137-145) mmol/L Potassium 3.9 3.9 (3.6-5.0) mmol/L Chloride 93.0 L 93.4 L (98-107) mmol/L Carbon Dioxide 20 L 23 (22-30) mmol/L BUN 16 23 H (9-20) mg/dL Creatinine 0.6 L 0.8 (0.8-1.5) mg/dL Glucose 88 167 H (75-100) mg/dL Calcium 7.8 L 7.6 L (8.4-10.2) mg/dL Adrenal panel 08/07/18 08/08/18 Range/Units 10:30 04:50 Sodium 128 L 129 L (137-145) mmol/L Potassium 3.9 3.9 (3.6-5.0) mmol/L Chloride 93.0 L 93.4 L (98-107) mmol/L Carbon Dioxide 20 L 23 (22-30) mmol/L BUN 16 23 H (9-20) mg/dL Creatinine 0.6 L 0.8 (0.8-1.5) mg/dL Glucose 88 167 H (75-100) mg/dL Calcium 7.8 L 7.6 L (8.4-10.2) mg/dL Total Bilirubin 0.70 (0.1-1.2) mg/dL AST 37 (5-40) units/L ALT 17 (7-56) units/L Alkaline Phosphatase 140 H (35-129) units/L Total Protein 4.9 L (6.3-8.2) g/dL Albumin 1.8 L (3.9-5) g/dL
[2018-08-08] MEDS ORDERED: PERCOCET 5/325 PO PRN (08:44)
[2018-08-08] MEDS ORDERED: TYLENOL PO PRN (08:44)
[2018-08-08] MEDS ORDERED: MIRALAX 3350 PO PRN (08:44)
[2018-08-08] MEDS ORDERED: DRONEDARONE HCL 400 MG PO SCH (10:00)
[2018-08-08] MEDS ORDERED: [UNRECOGNIZED DRUG - OTHER] PO SCH (10:00)
[2018-08-08] MEDS: SODIUM CHLORIDE FLUSH SYRINGE 10 ML IV SCH ×2 (10:10→22:19)
--- NOTE | 2018-08-08 10:43 | Operative Report ---
PREOPERATIVE DIAGNOSES: 1. History of prostate cancer. 2. Pelvic mass. 3. Possible partial bowel obstruction. POSTOPERATIVE DIAGNOSES: 1. History of prostate cancer. 2. Pelvic mass. 3. Possible partial bowel obstruction. PROCEDURE: 1. Rigid proctosigmoidoscopy. 2. Laparoscopic colostomy creation. ATTENDING SURGEON: Jalil Lunsford MD ANESTHESIA: General. ESTIMATED BLOOD LOSS: Less than 25 mL. FLUIDS: 1100 mL. URINE OUTPUT: 60 mL. FINDINGS: The patient had about a 50% circumferential involvement of the rectum up to 10 cm from the anal verge with a penetrating malignancy. This appeared to have communication with the bladder as we were insufflating, air bubbles could be seen coming into the Parekh catheter. Intraabdominally, everything was fairly normal except for what appeared to be an ill-defined mass in the right side of the pelvis extending into the rectum and bladder regions. Rest of the abdomen was unremarkable. SPECIMENS: None. COMPLICATIONS: None. DISPOSITION: Stable, transferred to recovery. INDICATIONS: This is a 78-year-old male with a history of prostate cancer, was treated with radiation therapy. The patient ultimately developed a pelvic mass that had been followed and evaluated by Urology; eventually started developing symptoms of obstruction, General Surgery was consulted for evaluation and treatment. The patient was assessed to be in need for endoscopic evaluation and possible colostomy creation. Procedure, risks and benefits were explained to the patient. Risks included, but were not limited to infection, bleeding, pain, injury to surrounding structures, possible need for more surgery in the future. The patient understood and consented. OPERATIVE NOTE: The patient was brought to the operating room and placed on the table in supine position. Initially, Urology did their procedure first and then I took over the case. The patient was already asleep at that time that I was involved in the case. The patient was in lithotomy position. Digital exam was done. I could feel hard masses within the anorectal region. Rigid proctoscope was inserted. Rectum was insufflated. On the anterior half of the rectum, there was a large growth that was noted. This extended up to about 10 cm from the anal verge, beyond that, the bowel appeared normal. I looked at it multiple times. This was an ill-defined hard mass on the anterior surface. I went and spoke to the family as I promised I would, I explained the findings. We discussed that most likely this is malignancy growing into the bowel as opposed to simply having external compression. The patient would benefit from a colostomy as we previously discussed, but I wanted to make sure with them. We do not have an emergency at this time, this could always be done at a later time. Family felt that as the patient wanted it done and it would help him, then we should go ahead and move forward. Therefore, I went back to the operating room. The patient was prepped and draped in usual sterile fashion for an abdominal case. Antibiotics had already been given at the beginning of the case. Timeout was performed. I began by placing a Veress needle in the left upper quadrant. Abdomen was insufflated on the first attempt. I then placed a 5 mm port using the Optiview technique near the umbilicus. I entered the peritoneal cavity safely. I examined the area where the Veress needle was inserted. There was no injury to the underlying structures. This was removed. A 12 mm port was placed in the right lower quadrant under direct vision and then another 5 mm port in the epigastric area at his previous incision site. This was done under direct vision. I began by evaluating the pelvic area. Pictures were taken of that area for documentation purposes and then I examined the bowel. The patient had a very long sigmoid colon that was essentially unaffected by this pelvic mass. Rest of the abdomen was clean. In approximately the rectosigmoid junction region, I made an opening in the mesentery, taking care to leave enough mesentery against the bowel to minimize risk of devascularization. This opening was created with the LigaSure device. I placed a gauze on the other side to make sure that the bowel in this site was not injured. Once we had gotten all the way through, then I passed a 60 mm laparoscopic stapler with a blue load and divided the bowel. We had excellent hemostasis of the staple line. I then took down additional mesentery to mobilize the proximal end of the bowel that had been divided. It appeared as though I had adequate length to bring it up to our planned colostomy site that was marked by the colostomy nurse. The 5 mm port was placed in that location in order to help with mobilization of the bowel and for eventually bring the bowel up to the skin surface. Once we had mobilized the mesentery again taking care not to go right up against the bowel and devascularize it, we then secured the one end of the bowel with the atraumatic grasper and then I proceeded to make an opening in the skin. Using the electrocautery device, I made a small circular opening around the 5 mm ports in the left lower quadrant. We excised that skin and then I dissected down to the fascia. A cruciate incision was made in the fascia and we ultimately brought the bowel up through that area. We had a nice wide opening that was at least 2 fingerbreadths. The bowel came through very easily. I had about 2 cm of bowel above the skin level. We then reinsufflated the abdomen. At this time, a lower pressure about 8 mm just to make sure there was no tension. There appeared to be perhaps a slight bit of tension on the mesentery. This was further opened up just on the external surface. The blood vessels themselves were left intact that took care of the tension. There was no twisting. The bowel laid very nicely. There was no bleeding, everything was hemostatic. In the abdomen, there was no fluid accumulation, no leakage of any GI contents. I was satisfied at this portion. Prior to doing that, I closed the fascia at the right lower quadrant site with a Efren-Maria Elena fascial closure device using an 0 Vicryl stitch, we had a good closure there, we then desufflated the abdomen. Additional local was injected into the port sites. Skin sites were closed with 4-0 Monocryl subcuticular stitches. Skin was cleaned and dried. Dermabond was placed. We covered this area with a towel and then proceeded to mature the ostomy. Staple line was excised. After we had secured edges of the bowel to the fascia, we went circumferentially with 3-0 Vicryl sutures. We then opened the bowel, taking a portion of the mucosa, lower down the serosa and then the skin. We then matured the edges of the bowel. The mucosa was perfusing and viable. I inserted a finger through the opening. We had a nice wide opening. There was no evidence of any constriction. Fluid was already starting to come out, this fluid being the GoLYTELY that he had as the prep. Skin was cleaned and dried, appliance was placed. The patient tolerated the procedure well and there were no complications. I spoke with the family at the end of the case. I gave them a copy of the picture so they would have it for the records. They were appreciative of the help in the care. The patient will be admitted for overnight observation so that ostomy care and teaching can be done. JOB# [id number] ARYAN/LAURA
[2018-08-08] MEDS: LOPRESSOR PO SCH (11:30)
[2018-08-08] MEDS: PERCOCET 5/325 PO PRN ×2 (11:35→18:02)
[2018-08-08] MEDS: COZAAR PO SCH (11:40)
[2018-08-08] MEDS: PEPCID PO SCH ×2 (11:40→22:19)
[2018-08-08 11:48] LABS: Basophils % (Manual) 0 % (0.0-1.8); Eosinophils % (Manual) 0 % (0.0-4.3); Total Cells Counted 100
[2018-08-08 11:49] LABS: Anisocytosis 2+
[2018-08-08 11:50] LABS: Ovalocytes Few; Platelet Estimate Consistent w Auto; Poikilocytosis 1+
--- NOTE | 2018-08-08 12:15 | Progress Note ---
Assessment and Plan path pending i spoke with onc dr yanez spt in place Subjective Date of service: 08/08/18 Principal diagnosis: spindle cell tumor Objective - Constitutional Vitals: Vital Signs - 12hr 08/08/18 08/08/18 08/08/18 01:43 05:07 07:03 Temperature 98.2 F 98.2 F 98.8 F Pulse Rate 80 81 77 Respiratory 17 17 20 Rate Blood Pressure 110/77 119/81 114/83 O2 Sat by Pulse 100 98 99 Oximetry 08/08/18 08:14 Temperature Pulse Rate Respiratory Rate Blood Pressure O2 Sat by Pulse 99 Oximetry General appearance: Present: no acute distress - Respiratory Respiratory effort: normal - Labs CBC & Chem 7: 08/08/18 04:50 08/08/18 04:50 Labs: Abnormal lab results 08/08/18 08/08/18 Range/Units 04:50 04:50 WBC 19.4 H (4.5-11.0) K/mm3 RBC 3.31 L (3.65-5.03) M/mm3 Hgb 9.1 L (11.8-15.2) gm/dl Hct 28.2 L (35.5-45.6) % MCH 27 L (28-32) pg RDW 18.8 H (13.2-15.2) % Seg Neuts % (Manual) 95.0 H (40.0-70.0) % Lymphocytes % (Manual) 3.0 L (13.4-35.0) % Seg Neutrophils # Man 18.4 H (1.8-7.7) K/mm3 Lymphocytes # (Manual) 0.6 L (1.2-5.4) K/mm3 Sodium 129 L (137-145) mmol/L Chloride 93.4 L (98-107) mmol/L BUN 23 H (9-20) mg/dL Glucose 167 H (75-100) mg/dL Calcium 7.6 L (8.4-10.2) mg/dL Alkaline Phosphatase 140 H (35-129) units/L Total Protein 4.9 L (6.3-8.2) g/dL Albumin 1.8 L (3.9-5) g/dL Medications & Allergies - Medications Allergies/Adverse Reactions: Allergies No Known Allergies Allergy (Verified 08/03/16 18:14) Home Medications: Home Medications Medication Instructions Recorded Confirmed Last Taken Type AtorvaSTATin [Lipitor] 40 mg PO DAILY 05/13/15 08/03/18 04/18/18 History Leuprolide Acetate [Eligard] 45 mg SQ [id number] 08/03/16 08/07/18 05/28/18 09:00 History Apixaban [Eliquis] 5 mg PO BID 09/04/17 08/07/18 07/17/18 09:00 History Metoprolol [Lopressor TAB] 25 mg PO DAILY 09/04/17 08/07/18 08/07/18 11:10 History Dronedarone HCl [Multaq] 400 mg PO BID 09/20/17 08/03/18 04/18/18 History Apalutamide [Erleada] 4 tab PO QDAY 04/20/18 08/03/18 04/18/18 History Aspirin [Aspirin EC] 81 mg PO QDAY 04/20/18 08/07/18 05/28/18 09:00 History Losartan Potassium 100 mg PO QDAY 04/20/18 08/03/18 04/18/18 History Acetaminophen [Acetaminophen TAB] 650 mg PO Q4H PRN #10 tablet 04/25/18 08/03/18 Unknown Rx Famotidine [Pepcid] 20 mg PO BID #15 tablet 04/25/18 08/03/18 Unknown Rx Polyethylene Glycol 3350 [Miralax 17 gm PO QDAY PRN #15 powd.pack 04/25/18 08/03/18 Unknown Rx 3350] oxyCODONE /ACETAMINOPHEN [Percocet 1 tab PO Q6H PRN #20 tablet 04/25/18 08/07/18 08/02/18 09:00 Rx 5/325 mg] Active Medications: Generic Name Dose Route Start Last Admin Trade Name Freq PRN Reason Stop Dose Admin Acetaminophen 650 mg 08/07/18 16:19 Tylenol PO Q4H PRN Pain MILD(1-3)/Fever >100.5/OLMEDO Acetaminophen 650 mg 08/08/18 08:44 Tylenol PO Q4H PRN Pain MILD(1-3)/Fever >100.5/OLMEDO Albuterol 2.5 mg 08/07/18 16:19 Proventil IH Q4HRT PRN Shortness Of Breath Atorvastatin Calcium 40 mg 08/08/18 10:00 Lipitor PO DAILY [facility] Famotidine 20 mg 08/08/18 10:00 Pepcid PO BID [facility] Lactated Ringer's 1,000 mls @ 100 mls/hr 08/07/18 10:00 08/07/18 23:11 Lactated Ringers IV 100 mls/hr DIRECT [facility] Administration Cefepime HCl 2 gm in 100 mls @ 200 mls/hr 08/07/18 22:00 08/08/18 05:54 Maxipime/Ns 2 Gm/100 Ml IV 200 mls/hr Q8HR [facility] Administration Protocol Metronidazole 500 mg in 100 mls @ 100 mls/hr 08/07/18 22:00 08/08/18 05:11 Flagyl 500 Mg/100 Ml IV 100 mls/hr Q8HR [facility] Administration Protocol Sodium Chloride 2,500 mls @ 0 mls/hr 08/07/18 17:00 Nacl 0.9% 1000 Ml IV 08/08/18 17:01 ONCE [facility]IA As Directed Vancomycin HCl 1 gm in 250 mls @ 166.667 mls/hr 08/08/18 05:00 08/08/18 06:36 Vancomycin/Ns 1 Gm/250 Ml IV 166.667 mls/hr Q12H [facility] Administration Losartan Potassium 100 mg 08/08/18 10:00 Cozaar PO QDAY [facility] Metoprolol Tartrate 25 mg 08/08/18 10:00 Lopressor PO DAILY [facility] Miscellaneous Medication 4 tab 08/08/18 10:00 Apalutamide [Erleada] PO QDAY [facility] Miscellaneous Medication 400 mg 08/08/18 10:00 Dronedarone Hcl [Multaq] PO BID [facility] Miscellaneous Medication 45 mg 08/27/18 10:00 Leuprolide Acetate [Eligard] SUB-Q Q1SYLARS [facility] Morphine Sulfate 2 mg 08/07/18 16:19 Morphine IV Q4H PRN Pain, Moderate (4-6) Ondansetron HCl 4 mg 08/07/18 16:19 Zofran IV Q8H PRN Nausea And Vomiting Oxycodone/Acetaminophen 1 tab 08/07/18 16:19 08/07/18 21:50 Percocet 5/325 PO 1 tab Q6H PRN Administration Pain, Moderate (4-6) Oxycodone/Acetaminophen 1 tab 08/08/18 08:44 Percocet 5/325 PO Q6H PRN Pain , Severe (7-10) Polyethylene Glycol 17 gm 08/08/18 08:44 Miralax 3350 PO QDAY PRN Constipation Sodium Chloride 10 ml 08/07/18 22:00 08/07/18 23:05 Sodium Chloride Flush Syringe 10 Ml IV 10 ml BID [facility] Administration Sodium Chloride 10 ml 08/07/18 16:19 Sodium Chloride Flush Syringe 10 Ml IV PRN PRN LINE FLUSH
[2018-08-08] MEDS: LACTATED RINGERS 1,000 ML IV SCH (14:48)
--- NOTE | 2018-08-08 16:04 | Progress Note ---
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 Boucher consulted SIRS (systemic inflammatory response syndrome) - Empiric antibiotic therapy, CBC, CMP, IVF resuscitation therapy, Acidosis - IVF resuscitation therapy, repeat bmp Atrial flutter - supportive care, rate control, hold therapeutic anticoagulation overnight as per surgical team. Other chronic issues: Coronary artery disease status post stent placement History of cardiac valve replacement Hypotension/peripheral vascular disease/AAA History of prostate cancer with seed implant s/p SPT - urology following, monitor UOP - Continue supportive care, resume home meds, hold anticoagulations for now until clears by surgery DVT prophylaxis - SCD to BLE while in bed, Disposition: Possible d/c tomorrow if clinically stable and UOP improved Brief History: 78 YO Male with CAD S/P Stent Placement, Valve Replacement, Atrial Flutter on Therapeutic Anticoagulation (Eliquis), HTN, PVD, AAA, Prostate Cancer S/P Seed implant, Urinary Obstruction admitted directly at the request of Dr. Lunsford s/p colostomy placement for rectovesical fistula as well as anal mass suspicious for malignancy. Pt found to have evidence of SIRS on routine laboratory exams, as well as Acidosis and initiated on empric antibiotic therapy. Radiological data/procedure: Rigid proctoscopy: Fistula between rectum and bladder. Ill defined mass in low pelvis. Rest of abdomen was normal. Tumor like mass in anorectal region that extends 10cm from anal verge. Hospitalist Physical exam: GENERAL: well-developed and well-nourished white male lying on bed appeared to be in no discomfort. HEENT: Normocephalic. Atraumatic. No conjunctival congestion or icterus. Patient has moist mucous membranes. NECK: Supple. Trachea midline. CHEST/LUNGS: Clear to auscultated bilaterally, breathing nonlabored. No wheezes crackles or rhonchi. HEART/CARDIOVASCULAR: Regular in rate and rhythm. S1 and S2 positive. ABDOMEN: Abdomen is soft, mild tender. Patient has normal bowel sounds. Colostomy bag in place, SPT in place SKIN: There is no rash. Warm and dry. NEURO: No focal motor deficit. Follows command. MUSCULOSKELETAL: No joint effusion or tenderness. EXTRIMITY: No edema, no cyanosis or clubbing. PSYCH: Cooperative. Subjective Date of service: 08/08/18 Principal diagnosis: spindle cell tumor Interval history: Patient seen and examined. Medical records and medication list reviewed. No acute event overnight noted by the RN. Patient denies any chest pain or difficulty breathing. c/o aching around the colostomy area and c/o no UOP from suprapubic catheter Discussed plan of care at bedside with patient. Objective - Constitutional Vitals: Vital Signs - 12hr 08/08/18 08/08/18 08/08/18 05:07 07:03 08:14 Temperature 98.2 F 98.8 F Pulse Rate 81 77 Respiratory 17 20 Rate Blood Pressure 119/81 114/83 O2 Sat by Pulse 98 99 99 Oximetry 08/08/18 11:27 Temperature 98.0 F Pulse Rate 85 Respiratory 20 Rate Blood Pressure 125/83 O2 Sat by Pulse 98 Oximetry - Labs CBC & Chem 7: 08/09/18 05:53 08/09/18 05:53 Labs: Abnormal lab results 08/08/18 08/08/18 Range/Units 04:50 04:50 WBC 19.4 H (4.5-11.0) K/mm3 RBC 3.31 L (3.65-5.03) M/mm3 Hgb 9.1 L (11.8-15.2) gm/dl Hct 28.2 L (35.5-45.6) % MCH 27 L (28-32) pg RDW 18.8 H (13.2-15.2) % Seg Neuts % (Manual) 95.0 H (40.0-70.0) % Lymphocytes % (Manual) 3.0 L (13.4-35.0) % Seg Neutrophils # Man 18.4 H (1.8-7.7) K/mm3 Lymphocytes # (Manual) 0.6 L (1.2-5.4) K/mm3 Sodium 129 L (137-145) mmol/L Chloride 93.4 L (98-107) mmol/L BUN 23 H (9-20) mg/dL Glucose 167 H (75-100) mg/dL Calcium 7.6 L (8.4-10.2) mg/dL Alkaline Phosphatase 140 H (35-129) units/L Total Protein 4.9 L (6.3-8.2) g/dL Albumin 1.8 L (3.9-5) g/dL
[2018-08-08] MEDS: ROXICODONE PO PRN (22:18)
[2018-08-09] MEDS ORDERED: OxyCONTIN PO SCH
[2018-08-09] MEDS: ROXICODONE PO PRN ×3 (02:54→18:00)
[2018-08-09] MEDS: VANCOMYCIN/NS 1 GM/250 ML 1 GM/250 ML BAG IV SCH ×2 (05:39→19:19)
[2018-08-09] MEDS: MAXIPIME/NS 2 GM/100 ML 2 GM/100 ML BAG IV SCH ×2 (05:40→15:55)
[2018-08-09] MEDS: FLAGYL 500 MG/100 ML 500 MG/100 ML BAG IV SCH ×2 (05:45→17:40)
[2018-08-09 06:56] LABS: Hemoglobin 8.7 gm/dl (11.8-15.2); Mean Corpuscular HGB Conc 32 % (32-34); Mean Corpuscular Volume 86 fl (84-94); Platelet Count 239 K/mm3 (140-440); Red Blood Count 3.15 M/mm3 (3.65-5.03)
[2018-08-09 07:24] LABS: BUN/Creatinine Ratio 36; Blood Urea Nitrogen 25 mg/dL (9-20); Calcium 7.6 mg/dL (8.4-10.2); Hemolysis Index 2
--- NOTE | 2018-08-09 08:31 | Progress Note ---
Assessment and Plan spt not draining suspect fistul;a inro rectum will get cystogram likely from huge tumor path pending option perc tubes ot conservative tx not candidate for major urinary diversion in my opinion Subjective Date of service: 08/09/18 Principal diagnosis: spindle cell tumor Objective - Constitutional Vitals: Vital Signs - 12hr 08/08/18 08/09/18 08/09/18 22:18 00:10 02:54 Temperature 97.6 F Pulse Rate 85 Respiratory 18 20 18 Rate Blood Pressure Blood Pressure 123/82 [Right] O2 Sat by Pulse 95 Oximetry 08/09/18 08/09/18 04:54 08:09 Temperature 97.5 F L Pulse Rate 89 Respiratory 20 Rate Blood Pressure 104/74 Blood Pressure [Right] O2 Sat by Pulse 97 99 Oximetry General appearance: Present: no acute distress - Gastrointestinal General gastrointestinal: Present: soft, non-tender - Labs CBC & Chem 7: 08/09/18 05:53 08/09/18 05:53 Labs: Abnormal lab results 08/08/18 08/09/18 08/09/18 Range/Units 04:50 05:53 05:53 WBC 15.0 H (4.5-11.0) K/mm3 RBC 3.15 L (3.65-5.03) M/mm3 Hgb 8.7 L (11.8-15.2) gm/dl Hct 27.0 L (35.5-45.6) % RDW 19.0 H (13.2-15.2) % Seg Neuts % (Manual) 95.0 H (40.0-70.0) % Lymphocytes % (Manual) 3.0 L (13.4-35.0) % Seg Neutrophils # Man 18.4 H (1.8-7.7) K/mm3 Lymphocytes # (Manual) 0.6 L (1.2-5.4) K/mm3 Sodium 132 L (137-145) mmol/L Chloride 97.8 L (98-107) mmol/L Carbon Dioxide 21 L (22-30) mmol/L BUN 25 H (9-20) mg/dL Creatinine 0.7 L (0.8-1.5) mg/dL Glucose 116 H (75-100) mg/dL Calcium 7.6 L (8.4-10.2) mg/dL Medications & Allergies - Medications Allergies/Adverse Reactions: Allergies No Known Allergies Allergy (Verified 08/03/16 18:14) Home Medications: Home Medications Medication Instructions Recorded Confirmed Last Taken Type AtorvaSTATin [Lipitor] 40 mg PO DAILY 05/13/15 08/03/18 04/18/18 History Leuprolide Acetate [Eligard] 45 mg SQ [id number] 08/03/16 08/07/18 05/28/18 09:00 History Apixaban [Eliquis] 5 mg PO BID 09/04/17 08/07/18 07/17/18 09:00 History Metoprolol [Lopressor TAB] 25 mg PO DAILY 09/04/17 08/07/18 08/07/18 11:10 History Dronedarone HCl [Multaq] 400 mg PO BID 09/20/17 08/03/18 04/18/18 History Apalutamide [Erleada] 4 tab PO QDAY 04/20/18 08/03/18 04/18/18 History Aspirin [Aspirin EC] 81 mg PO QDAY 04/20/18 08/07/18 05/28/18 09:00 History Losartan Potassium 100 mg PO QDAY 04/20/18 08/03/18 04/18/18 History Acetaminophen [Acetaminophen TAB] 650 mg PO Q4H PRN #10 tablet 04/25/18 08/03/18 Unknown Rx Famotidine [Pepcid] 20 mg PO BID #15 tablet 04/25/18 08/03/18 Unknown Rx Polyethylene Glycol 3350 [Miralax 17 gm PO QDAY PRN #15 powd.pack 04/25/18 08/03/18 Unknown Rx 3350] oxyCODONE /ACETAMINOPHEN [Percocet 1 tab PO Q6H PRN #20 tablet 04/25/18 08/07/18 08/02/18 09:00 Rx 5/325 mg] Active Medications: Generic Name Dose Route Start Last Admin Trade Name Freq PRN Reason Stop Dose Admin Acetaminophen 650 mg 08/07/18 16:19 Tylenol PO Q4H PRN Pain MILD(1-3)/Fever >100.5/OLMEDO Acetaminophen 650 mg 08/08/18 08:44 Tylenol PO Q4H PRN Pain MILD(1-3)/Fever >100.5/OLMEDO Albuterol 2.5 mg 08/07/18 16:19 Proventil IH Q4HRT PRN Shortness Of Breath Atorvastatin Calcium 40 mg 08/08/18 10:00 08/08/18 11:30 Lipitor PO 40 mg DAILY [facility] Administration Famotidine 20 mg 08/08/18 10:00 08/08/18 22:19 Pepcid PO 20 mg BID [facility] Administration Lactated Ringer's 1,000 mls @ 100 mls/hr 08/07/18 10:00 08/08/18 14:48 Lactated Ringers IV 100 mls/hr DIRECT [facility] Administration Cefepime HCl 2 gm in 100 mls @ 200 mls/hr 08/07/18 22:00 08/09/18 05:40 Maxipime/Ns 2 Gm/100 Ml IV 200 mls/hr Q8HR [facility] Administration Protocol Metronidazole 500 mg in 100 mls @ 100 mls/hr 08/07/18 22:00 08/09/18 05:45 Flagyl 500 Mg/100 Ml IV 100 mls/hr Q8HR [facility] Administration Protocol Vancomycin HCl 1 gm in 250 mls @ 166.667 mls/hr 08/08/18 05:00 08/09/18 05:39 Vancomycin/Ns 1 Gm/250 Ml IV 166.667 mls/hr Q12H [facility] Administration Losartan Potassium 100 mg 08/08/18 10:00 08/08/18 11:40 Cozaar PO Not Given QDAY [facility] Metoprolol Tartrate 25 mg 08/08/18 10:00 08/08/18 11:30 Lopressor PO 25 mg DAILY [facility] Administration Miscellaneous Medication 4 tab 08/08/18 10:00 Apalutamide [Erleada] PO QDAY [facility] Miscellaneous Medication 400 mg 08/08/18 10:00 Dronedarone Hcl [Multaq] PO BID [facility] Miscellaneous Medication 45 mg 08/27/18 10:00 Leuprolide Acetate [Eligard] SUB-Q [id number] [facility] Ondansetron HCl 4 mg 08/07/18 16:19 Zofran IV Q8H PRN Nausea And Vomiting Oxycodone HCl 10 mg 08/08/18 22:09 08/09/18 02:54 Roxicodone PO 10 mg Q6H PRN Administration Pain , Severe (7-10) Polyethylene Glycol 17 gm 08/08/18 08:44 Miralax 3350 PO QDAY PRN Constipation Sodium Chloride 10 ml 08/07/18 22:00 08/08/18 22:19 Sodium Chloride Flush Syringe 10 Ml IV 10 ml BID [facility]IA Administration Sodium Chloride 10 ml 08/07/18 16:19 Sodium Chloride Flush Syringe 10 Ml IV PRN PRN LINE FLUSH
[2018-08-09] MEDS: SODIUM CHLORIDE FLUSH SYRINGE 10 ML IV SCH (11:18)
[2018-08-09] MEDS: PEPCID PO SCH (11:18)
[2018-08-09] MEDS: LOPRESSOR PO SCH (11:18)
[2018-08-09] MEDS: COZAAR PO SCH (11:19)
[2018-08-09] MEDS: LACTATED RINGERS 1,000 ML IV SCH (11:35)
--- NOTE | 2018-08-09 11:56 | Fluoroscopy Report ---
FLUOROSCOPY CYSTOGRAM STATIC HISTORY: Fistula. FINDINGS: 49 fluoroscopic images were captured during this exam. Svp Operations film of the pelvis demonstrates radiotherapy beads in the prostate bed. A right ureteral stent and suprapubic catheter are in place. Approximately 250 cc of Cystografin was infused through the suprapubic catheter. There is poor distention of the bladder but diffuse bladder wall trabeculation is suspected. No obvious bladder mass. A fistulous tract is identified originating from the right side of the bladder base which descends inferiorly and appears to communicate with the lower rectum. IMPRESSION: A fistulous tract from the right side of the bladder base to the lower rectum is identified.
[2018-08-09 12:22] LABS: Anisocytosis 2+; Basophils % (Manual) 0 % (0.0-1.8); Burr Cells Few; Eosinophils % (Manual) 0 % (0.0-4.3); Ovalocytes Few; Poikilocytosis 1+; Total Cells Counted 100
[2018-08-09 12:23] LABS: Platelet Estimate Consistent w Auto
--- NOTE | 2018-08-09 13:09 | Progress Note ---
Assessment and Plan - Patient Problems (1) Partial intestinal obstruction Current Visit: Yes Status: Acute Qualifiers: Intestinal obstruction type: other intestinal obstruction Qualified Code(s): K56.690 - Other partial intestinal obstruction Plan to address problem: Pt stable. 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 Pt appears to be doing well. Family confused on exact status. Explained in detail the issues and the plan. Rec: 1) ostomy teaching today. 2) sponge baths for 1 week 3) RTC 1 week 4) May d/c from my standpoint once ostomy teaching done and cleared by medicine. 5) diet as tolerated 6) ambulate Please call with questions. Subjective Date of service: 08/09/18 Patient Reports: Positive: no new complaints, feels better Objective Vital Signs - 12hr 08/09/18 08/09/18 08/09/18 02:54 04:54 07:45 Temperature 97.5 F L 97.4 F L Pulse Rate 89 89 Respiratory 18 20 18 Rate Blood Pressure 104/74 113/84 O2 Sat by Pulse 97 97 Oximetry 08/09/18 08:09 Temperature Pulse Rate Respiratory Rate Blood Pressure O2 Sat by Pulse 99 Oximetry - General physical appearance no distress, no pain, other (looks well) - Respiratory normal expansion, normal respiratory effort - Abdomen soft, not tender, not distended, other (ostomy pink with some areas of bruising. ) - Integumentary no rash, no growths, no abnormal pigmentation - Labs 08/09/18 05:53 08/09/18 05:53 Diabetes panel 08/09/18 Range/Units 05:53 Sodium 132 L (137-145) mmol/L Potassium 3.9 (3.6-5.0) mmol/L Chloride 97.8 L (98-107) mmol/L Carbon Dioxide 21 L (22-30) mmol/L BUN 25 H (9-20) mg/dL Creatinine 0.7 L (0.8-1.5) mg/dL Glucose 116 H (75-100) mg/dL Calcium 7.6 L (8.4-10.2) mg/dL Calcium panel 08/09/18 Range/Units 05:53 Calcium 7.6 L (8.4-10.2) mg/dL Pituitary panel 08/09/18 Range/Units 05:53 Sodium 132 L (137-145) mmol/L Potassium 3.9 (3.6-5.0) mmol/L Chloride 97.8 L (98-107) mmol/L Carbon Dioxide 21 L (22-30) mmol/L BUN 25 H (9-20) mg/dL Creatinine 0.7 L (0.8-1.5) mg/dL Glucose 116 H (75-100) mg/dL Calcium 7.6 L (8.4-10.2) mg/dL Adrenal panel 08/09/18 Range/Units 05:53 Sodium 132 L (137-145) mmol/L Potassium 3.9 (3.6-5.0) mmol/L Chloride 97.8 L (98-107) mmol/L Carbon Dioxide 21 L (22-30) mmol/L BUN 25 H (9-20) mg/dL Creatinine 0.7 L (0.8-1.5) mg/dL Glucose 116 H (75-100) mg/dL Calcium 7.6 L (8.4-10.2) mg/dL - Imaging Additional Studies: cystogram report reviewed
--- NOTE | 2018-08-09 13:52 | Cat Scan Report ---
CT ABDOMEN PELVIS WITHOUT CONTRAST: HISTORY: Pelvic mass, fistula. COMPARISON: 04/16/18. TECHNIQUE: Helical CT in 1.25mm intervals without IV contrast. Sagittal and coronal reconstructions. FINDINGS: Lung bases: Mild cardiomegaly and small bilateral layering pleural effusions are identified. No evidence for infiltrate or mass. Liver: Normal. Biliary system: Normal. Pancreas: Normal. Spleen: Normal. Kidneys/ureters/bladder: A suprapubic urinary catheter has been inserted since the previous exam. There is a mild degree of subcutaneous gas along the anterior abdominal wall which is presumably related to catheter placement. There is diffuse trabeculation of the bladder wall. There is residual contrast agent within the bladder and rectum from recent cystogram. Cystogram and CT demonstrates a rather large fistula arising from the base of the bladder and communicating with the rectum. This fistula appears to track through to the prostate gland. A right ureteral stent is in place. There is moderate right and hydronephrosis which has increased slightly since the previous exam. No left hydronephrosis. The kidneys are grossly unremarkable on noncontrast CT. Adrenal glands: Normal. Aorta: Mild diffuse calcifications. No aneurysm. Intestines: An ostomy is identified in the left lower quadrant there is no evidence for bowel obstruction or focal inflammation. Appendix: Normal. Pelvic viscera: The prostate gland is markedly enlarged consistent with history of prostate cancer. Ascites: None. Adenopathy: None. Musculoskeletal: Moderate to severe lumbar spondylosis. No suspicious bony lesion or fracture is identified in the visualized bony structures. IMPRESSION: Vesiculo-rectal fistula. See above. Moderate right hydronephrosis. A right ureteral stent is in place. Correlate for stent malfunction. Markedly enlarged prostate gland. Mild cardiomegaly and small pleural effusions. No acute inflammatory process.
--- NOTE | 2018-08-09 15:09 | Progress Note ---
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 Boucher consulted SIRS (systemic inflammatory response syndrome) - Empiric antibiotic therapy, CBC, CMP, IVF resuscitation therapy, Acidosis - IVF resuscitation therapy, repeat bmp Atrial flutter - supportive care, rate control, hold therapeutic anticoagulation overnight as per surgical team. Hypoalbuminemia, due to underlying malignancy. Continue to monitor Other chronic issues: Coronary artery disease status post stent placement History of cardiac valve replacement Hypotension/peripheral vascular disease/AAA History of prostate cancer with seed implant s/p SPT - Continue supportive care, resume home meds, hold anticoagulations for now until clears by surgery DVT prophylaxis - SCD to BLE while in bed, Disposition: Possible d/c tomorrow if clinically stable and UOP improved Brief History: 78 YO Male with CAD S/P Stent Placement, Valve Replacement, Atrial Flutter on Therapeutic Anticoagulation (Eliquis), HTN, PVD, AAA, Prostate Cancer S/P Seed implant, Urinary Obstruction admitted directly at the request of Dr. Lunsford s/p colostomy placement for rectovesical fistula as well as anal mass suspicious for malignancy. Pt found to have evidence of SIRS on routine laboratory exams, as well as Acidosis and initiated on empric antibiotic therapy. Radiological data/procedure: Rigid proctoscopy: Fistula between rectum and bladder. Ill defined mass in low pelvis. Rest of abdomen was normal. Tumor like mass in anorectal region that extends 10cm from anal verge. Hospitalist Physical exam: GENERAL: well-developed and well-nourished white male lying on bed appeared to be in no discomfort. HEENT: Normocephalic. Atraumatic. No conjunctival congestion or icterus. Patient has moist mucous membranes. NECK: Supple. Trachea midline. CHEST/LUNGS: Clear to auscultated bilaterally, breathing nonlabored. No wheezes crackles or rhonchi. HEART/CARDIOVASCULAR: Regular in rate and rhythm. S1 and S2 positive. ABDOMEN: Abdomen is soft, mild tender. Patient has normal bowel sounds. Colostomy bag in place, SPT in place SKIN: There is no rash. Warm and dry. NEURO: No focal motor deficit. Follows command. MUSCULOSKELETAL: No joint effusion or tenderness. EXTRIMITY: No edema, no cyanosis or clubbing. PSYCH: Cooperative. Subjective Date of service: 08/09/18 Principal diagnosis: spindle cell tumor Objective - Constitutional Vitals: Vital Signs - 12hr 08/09/18 08/09/18 08/09/18 04:54 07:45 08:09 Temperature 97.5 F L 97.4 F L Pulse Rate 89 89 Respiratory 20 18 Rate Blood Pressure 104/74 113/84 O2 Sat by Pulse 97 97 99 Oximetry - Labs CBC & Chem 7: 08/09/18 05:53 08/09/18 05:53 Labs: Abnormal lab results 08/09/18 08/09/18 Range/Units 05:53 05:53 WBC 15.0 H (4.5-11.0) K/mm3 RBC 3.15 L (3.65-5.03) M/mm3 Hgb 8.7 L (11.8-15.2) gm/dl Hct 27.0 L (35.5-45.6) % RDW 19.0 H (13.2-15.2) % Seg Neuts % (Manual) 99.0 H (40.0-70.0) % Lymphocytes % (Manual) 0 L (13.4-35.0) % Seg Neutrophils # Man 14.9 H (1.8-7.7) K/mm3 Lymphocytes # (Manual) 0.0 L (1.2-5.4) K/mm3 Sodium 132 L (137-145) mmol/L Chloride 97.8 L (98-107) mmol/L Carbon Dioxide 21 L (22-30) mmol/L BUN 25 H (9-20) mg/dL Creatinine 0.7 L (0.8-1.5) mg/dL Glucose 116 H (75-100) mg/dL Calcium 7.6 L (8.4-10.2) mg/dL
--- NOTE | 2018-08-09 15:55 | Progress Note ---
Assessment and Plan ct and cystogram revued sig necrotic mass eroded int rectum has sig vesiccolonic fistula rec conservative care Subjective Date of service: 08/09/18 Principal diagnosis: spindle cell tumor Objective - Constitutional Vitals: Vital Signs - 12hr 08/09/18 08/09/18 08/09/18 04:54 07:45 08:09 Temperature 97.5 F L 97.4 F L Pulse Rate 89 89 Respiratory 20 18 Rate Blood Pressure 104/74 113/84 O2 Sat by Pulse 97 97 99 Oximetry 08/09/18 11:29 Temperature 97.4 F L Pulse Rate 93 H Respiratory 18 Rate Blood Pressure 110/80 O2 Sat by Pulse 93 Oximetry - Labs CBC & Chem 7: 08/09/18 05:53 08/09/18 05:53 Labs: Abnormal lab results 08/09/18 08/09/18 Range/Units 05:53 05:53 WBC 15.0 H (4.5-11.0) K/mm3 RBC 3.15 L (3.65-5.03) M/mm3 Hgb 8.7 L (11.8-15.2) gm/dl Hct 27.0 L (35.5-45.6) % RDW 19.0 H (13.2-15.2) % Seg Neuts % (Manual) 99.0 H (40.0-70.0) % Lymphocytes % (Manual) 0 L (13.4-35.0) % Seg Neutrophils # Man 14.9 H (1.8-7.7) K/mm3 Lymphocytes # (Manual) 0.0 L (1.2-5.4) K/mm3 Sodium 132 L (137-145) mmol/L Chloride 97.8 L (98-107) mmol/L Carbon Dioxide 21 L (22-30) mmol/L BUN 25 H (9-20) mg/dL Creatinine 0.7 L (0.8-1.5) mg/dL Glucose 116 H (75-100) mg/dL Calcium 7.6 L (8.4-10.2) mg/dL Medications & Allergies - Medications Allergies/Adverse Reactions: Allergies No Known Allergies Allergy (Verified 08/03/16 18:14) Home Medications: Home Medications Medication Instructions Recorded Confirmed Last Taken Type AtorvaSTATin [Lipitor] 40 mg PO DAILY 05/13/15 08/03/18 04/18/18 History Leuprolide Acetate [Eligard] 45 mg SQ [id number] 08/03/16 08/07/18 05/28/18 09:00 History Apixaban [Eliquis] 5 mg PO BID 09/04/17 08/07/18 07/17/18 09:00 History Metoprolol [Lopressor TAB] 25 mg PO DAILY 09/04/17 08/07/18 08/07/18 11:10 History Dronedarone HCl [Multaq] 400 mg PO BID 09/20/17 08/03/18 04/18/18 History Apalutamide [Erleada] 4 tab PO QDAY 04/20/18 08/03/18 04/18/18 History Aspirin [Aspirin EC] 81 mg PO QDAY 04/20/18 08/07/18 05/28/18 09:00 History Losartan Potassium 100 mg PO QDAY 04/20/18 08/03/18 04/18/18 History Acetaminophen [Acetaminophen TAB] 650 mg PO Q4H PRN #10 tablet 04/25/18 08/03/18 Unknown Rx Famotidine [Pepcid] 20 mg PO BID #15 tablet 04/25/18 08/03/18 Unknown Rx Polyethylene Glycol 3350 [Miralax 17 gm PO QDAY PRN #15 powd.pack 04/25/18 08/03/18 Unknown Rx 3350] oxyCODONE /ACETAMINOPHEN [Percocet 1 tab PO Q6H PRN #20 tablet 04/25/18 08/07/18 08/02/18 09:00 Rx 5/325 mg] Active Medications: Generic Name Dose Route Start Last Admin Trade Name Freq PRN Reason Stop Dose Admin Acetaminophen 650 mg 08/07/18 16:19 Tylenol PO Q4H PRN Pain MILD(1-3)/Fever >100.5/OLMEDO Acetaminophen 650 mg 08/08/18 08:44 Tylenol PO Q4H PRN Pain MILD(1-3)/Fever >100.5/OLMEDO Albuterol 2.5 mg 08/07/18 16:19 Proventil IH Q4HRT PRN Shortness Of Breath Atorvastatin Calcium 40 mg 08/08/18 10:00 08/09/18 11:19 Lipitor PO Not Given DAILY BELIA Famotidine 20 mg 08/08/18 10:00 08/09/18 11:18 Pepcid PO Not Given BID [facility] Lactated Ringer's 1,000 mls @ 100 mls/hr 08/07/18 10:00 08/09/18 11:35 Lactated Ringers IV 100 mls/hr DIRECT BELIA Administration Cefepime HCl 2 gm in 100 mls @ 200 mls/hr 08/07/18 22:00 08/09/18 05:40 Maxipime/Ns 2 Gm/100 Ml IV 200 mls/hr Q8HR BELIA Administration Protocol Metronidazole 500 mg in 100 mls @ 100 mls/hr 08/07/18 22:00 08/09/18 05:45 Flagyl 500 Mg/100 Ml IV 100 mls/hr Q8HR [facility] Administration Protocol Vancomycin HCl 1 gm in 250 mls @ 166.667 mls/hr 08/08/18 05:00 08/09/18 05:39 Vancomycin/Ns 1 Gm/250 Ml IV 166.667 mls/hr Q12H BELIA Administration Losartan Potassium 100 mg 08/08/18 10:00 08/09/18 11:19 Cozaar PO Not Given QDAY [facility] Metoprolol Tartrate 25 mg 08/08/18 10:00 08/09/18 11:18 Lopressor PO Not Given DAILY [facility] Miscellaneous Medication 4 tab 08/08/18 10:00 Apalutamide [Erleada] PO QDAY [facility] Miscellaneous Medication 400 mg 08/08/18 10:00 Dronedarone Hcl [Multaq] PO BID [facility] Miscellaneous Medication 45 mg 08/27/18 10:00 Leuprolide Acetate [Eligard] SUB-Q [id number] [facility] Ondansetron HCl 4 mg 08/07/18 16:19 Zofran IV Q8H PRN Nausea And Vomiting Oxycodone HCl 10 mg 08/08/18 22:09 08/09/18 11:09 Roxicodone PO 10 mg Q6H PRN Administration Pain , Severe (7-10) Polyethylene Glycol 17 gm 08/08/18 08:44 Miralax 3350 PO QDAY PRN Constipation Sodium Chloride 10 ml 08/07/18 22:00 08/09/18 11:18 Sodium Chloride Flush Syringe 10 Ml IV 10 ml BID BELIA Administration Sodium Chloride 10 ml 08/07/18 16:19 Sodium Chloride Flush Syringe 10 Ml IV PRN PRN LINE FLUSH
[2018-08-09 16:46] VITALS: BP 104/72
--- NOTE | 2018-08-09 17:10 | Discharge Summary ---
Providers - Providers Date of Admission: 08/08/18 13:25 Date of discharge: 08/09/18 Attending physician: ROMELIA ALLEN 08/08/18 05:15 Consult to Wound/ET Nurse [CONS] Routine Reason For Exam: Colostomy teaching Primary care physician: VENANCIO MCKINNON Hospitalization Hospital course: Brief History: 78 YO Male with CAD S/P Stent Placement, Valve Replacement, Atrial Flutter on Therapeutic Anticoagulation (Eliquis), HTN, PVD, AAA, Prostate Cancer S/P Seed implant, Urinary Obstruction admitted directly at the request of Dr. Lunsford s/p colostomy placement for rectovesical fistula as well as anal mass suspicious for malignancy. Pt found to have evidence of SIRS on routine laboratory exams, as well as Acidosis and initiated on empric antibiotic therapy. Patient was admitted for further evaluation and management. Radiological data/procedure: Rigid proctoscopy: Fistula between rectum and bladder. Ill defined mass in low pelvis. Rest of abdomen was normal. Tumor like mass in anorectal region that extends 10cm from anal verge. Cystoscopy: A fistulous tract from the right side of the bladder base to the lower rectum is identified. Ct abdomen/pelvis; Vesiculo-rectal fistula. Moderate right hydronephrosis. A right ureteral stent is in place. Correlate for stent malfunction. Markedly enlarged prostate gland. Mild cardiomegaly and small pleural effusions. No acute inflammatory process. Discharge diagnosis and management: Partial intestinal obstruction, s/p colostomy placement by GS - tolerating diet, will continue outpt followup Vesiculo-rectal fistula. -Status post cystosscopy, rigid proctoscopy and colostomy placement -Provided colostomy care and educate patient - conservative mx for now Anorectal tumor like mass - Biopsy pending, will follow up with Dr. Boucher outpt SIRS (systemic inflammatory response syndrome), due to underlying malignancy - Covered with Empiric antibiotic therapy, no infectious etiology Acidosis - Given IVF resuscitation therapy, repeat bmp Atrial flutter - supportive care, rate control, hold therapeutic anticoagulation overnight as p er surgical team. Hypoalbuminemia, - due to underlying malignancy and poor oral intake form intestinal obstruction. Patient also might have mild to moderate malnutrition. Provided supportive care. Other chronic issues: Coronary artery disease status post stent placement History of cardiac valve replacement Hypotension/peripheral vascular disease/AAA History of prostate cancer with seed implant s/p SPT - Continue supportive care, resume home meds, held anticoagulations for now until clears by surgery DVT prophylaxis - SCD to BLE while in bed, Disposition: home with outpatient follow-up Hospitalist Physical exam: GENERAL: well-developed and well-nourished white male lying on bed appeared to be in no discomfort. HEENT: Normocephalic. Atraumatic. No conjunctival congestion or icterus. Patient has moist mucous membranes. NECK: Supple. Trachea midline. CHEST/LUNGS: Clear to auscultated bilaterally, breathing nonlabored. No wheezes crackles or rhonchi. HEART/CARDIOVASCULAR: Regular in rate and rhythm. S1 and S2 positive. ABDOMEN: Abdomen is soft, mild tender. Patient has normal bowel sounds. Colostomy bag in place, SPT in place SKIN: There is no rash. Warm and dry. NEURO: No focal motor deficit. Follows command. MUSCULOSKELETAL: No joint effusion or tenderness. EXTRIMITY: No edema, no cyanosis or clubbing. PSYCH: Cooperative. Disposition: [id number] HOME UNDER HOME [facility] Time spent for discharge: 34 minutes Core Measure Documentation - Palliative Care Palliative Care/ Comfort Measures: Not Applicable - Core Measures Any of the following diagnoses?: none Exam - Constitutional Vitals: Temp Pulse Resp BP Pulse Ox 98.0 F 100 H 18 104/72 97 08/09/18 15:57 08/09/18 15:57 08/09/18 15:57 08/09/18 15:57 08/09/18 15:57 Plan Activity: advance as tolerated Weight Bearing Status: Non-Weight Bearing Diet: low fat Wound: per your surgeon's advice Follow up with: VENANCIO MCKINNON MD [Primary Care Provider] - 7 Days
[2018-08-27] MEDS ORDERED: LEUPROLIDE ACETATE 45 MG SUB-Q SCH (10:00)
== END 2018-08-09 21:32 | disposition home health service (06) | DRG 330 ==
LOC: OR 09:15 → 3A 13:25 → 3B-SURG 17:30 → OBSVTOIN 08-08 13:25
PROVIDERS: ADMIT Internal Medicine; ATTEND Internal Medicine
PROC: 0D1N4Z4 Bypass Sigmoid Colon to Cutaneous, Percutaneous Endoscopic Approach (ICD-10-PCS; principal; 2018-08-07)
PROC: 0DJD8ZZ Inspection of Lower Intestinal Tract, Via Natural or Artificial Opening Endoscopic (ICD-10-PCS; 2018-08-07)
PROC: 0TJB8ZZ Inspection of Bladder, Via Natural or Artificial Opening Endoscopic (ICD-10-PCS; 2018-08-08)
DX: K56.690 Other partial intestinal obstruction (principal); N32.1 Vesicointestinal fistula; I48.92 Unspecified atrial flutter; R65.10 Systemic inflammatory response syndrome (SIRS) of non-infectious origin without acute organ dysfunction; E87.2 Acidosis; E87.1 Hypo-osmolality and hyponatremia; C80.1 Malignant (primary) neoplasm, unspecified; E88.09 Other disorders of plasma-protein metabolism, not elsewhere classified; I25.10 Atherosclerotic heart disease of native coronary artery without angina pectoris; N28.9 Disorder of kidney and ureter, unspecified; Z95.5 Presence of coronary angioplasty implant and graft; Z85.46 Personal history of malignant neoplasm of prostate; Z82.49 Family history of ischemic heart disease and other diseases of the circulatory system; Z80.1 Family history of malignant neoplasm of trachea, bronchus and lung; Z84.89 Family history of other specified conditions; Z95.2 Presence of prosthetic heart valve
CPT/HCPCS: 36415; 51600; 74176; 74430; 80048; 80053; 82140; 85007; 85025; 85027; 85610; 85730; 86850; 86900; 86901; 88305; 88307; 88313; 88331; 88341; 88342; G0378; A4217; A9270-GY; J0692; J1100; J1170; J2405; J3370; J7040; J7120; Q9958; Q9968